=== PATIENT | male | born 1940 | race Caucasian/White ===

== ENCOUNTER → 2018-06-06 10:49 | Outpatient (CLI) | payer BC, SELFPAY ==
[2018-06-06 12:05] LABS: AST(SGOT) 23 U/L (15-37); Alanine Aminotransfer ALT/SGPT 22 U/L (16-61); Albumin, Serum 3.8 g/dL (3.2-5.0); Alkaline Phosphatase 56 U/L (45-117); Bilirubin, Direct 0.29 mg/dL (0.00-0.30); Cholesterol 190 mg/dL (200); High Density Lipoprotein 55 mg/dL; Protein, Total 6.8 g/dL (6.4-8.2); Triglycerides 100 mg/dL; Very Low Density Lipoprotein 20 mg/dL (5-40)
== END ==
PROVIDERS: Family Provider Family Medicine; PCP Family Medicine; Visit Provider Internal Medicine Cardiovascular Disease
DX: E78.5 Hyperlipidemia, unspecified (principal); Z79.899 Other long term (current) drug therapy
CPT/HCPCS: 36415; 80061; 80076

== ENCOUNTER → 2019-06-15 | Outpatient (CLI) | payer BC, SELFPAY ==
[2018-06-16 11:30] VITALS: BMI 30.1
[2019-06-15 09:56] LABS: AST(SGOT) 29 U/L (15-37); Alanine Aminotransfer ALT/SGPT 30 U/L (16-61); Albumin, Serum 3.5 g/dL (3.2-5.0); Alkaline Phosphatase 66 U/L (45-117); Bilirubin, Direct 0.24 mg/dL (0.00-0.30); Cholesterol 168 mg/dL (200); High Density Lipoprotein 50 mg/dL; Protein, Total 6.5 g/dL (6.4-8.2); Triglycerides 109 mg/dL; Very Low Density Lipoprotein 22 mg/dL (5-40)
== END | disposition home or self-care (01) ==
LOC: LAB 07:09
PROVIDERS: Family Provider Family Medicine; PCP Family Medicine; Referring Provider Internal Medicine Cardiovascular Disease; Visit Provider Internal Medicine Cardiovascular Disease
DX: I25.10 Atherosclerotic heart disease of native coronary artery without angina pectoris (principal); E78.5 Hyperlipidemia, unspecified
CPT/HCPCS: 36415; 80061; 80076

== ENCOUNTER → 2019-09-29 10:48 | Outpatient (CLI) | payer BC, SELFPAY ==
[2019-06-19 11:42] VITALS: BMI 30.5
--- NOTE | 2019-09-29 10:51 | ECHOCS_ITS ---
Reason For Study: MURMUR Procedure This was a 2D Doppler, Color Flow transthoracic echocardiogram. The study was technically difficult. Contrast injection was performed. Exam performed in department. Left Ventricle Normal LV size. Segmental dysfunction with preserved ejection fraction (see wall motion). The estimated ejection fraction is 55 %. Diastolic function is indeterminate. Infero-Basal: Hypokinetic. Basal inferoseptal: Hypokinetic. Mid-Inferior: Hypokinetic. Mid-inferoseptal : Hypokinetic. Mid- anteroseptal : Hypokinetic. Inferior [place] : Hypokinetic. Septal [place] : Hypokinetic. Right Ventricle Normal RV size. Normal systolic function. Atria Borderline enlarged left atrium. Normal right atrium. No doppler evidence for ASD. Mitral Valve There is no mitral annular calcification. Normal mitral valve. Trivial mitral valve insufficiency. Tricuspid Valve Normal tricuspid valve. Trivial tricuspid valve insufficiency. Unable to estimate RV systolic pressure/pulmonary artery pressure due to technically difficult study. Aortic Valve Trisinus/trileaflet aortic valve. Mild focal aortic valve calcification. Mild (1+) eccentric aortic valve insufficiency. Pulmonic Valve The pulmonic valve is not well visualized. Great Vessels Mildly dilated ascending aorta. Pericardium/Pleural No pericardial effusion. Medication 22 gauge I.V. with prn adaptor inserted into right arm. Diluted definity 3.0ml given slow IV push to enhance endocardial definition. MMode/2D Measurements & Calculations LVIDd: 5.2 cm IVSd: 0.97 cm Ao root diam: 4.3 cm LVIDs: 3.9 cm LVPWd: 1.1 cm RVDd: 3.4 cm FS: 24.0 % LAV(MOD-bp): 53.4 ml EDV(MOD-sp4): 186.3 ml EDV(MOD-sp2): 138.7 ml LAV(MOD-bp) Indexed: 25.1 ml/m2 ESV(MOD-sp4): 79.6 ml EF(MOD-sp2): 45.6 % LAV(MOD-sp2): 54.9 ml EF(MOD-sp4): 57.2 % LAV(MOD-sp4): 52.2 ml SV(MOD-sp4): 106.6 ml SV(MOD-sp2): 63.2 ml LA A4 area: 18.9 cm2 LA dimension(2D): 5.3 cm RA A4 area: 12.7 cm2 Time Measurements MV dec time: 0.32 sec Doppler Measurements & Calculations MV E max robin: 57.7 cm/sec Lat Peak E' Robin: 2.8 cm/sec Med Peak E' Robin: 3.7 cm/sec MV A max robin: 91.7 cm/sec E/E' lat: 20.3 E/E' med: 15.4 MV E/A: 0.63 Ao V2 max: 173.3 cm/sec AI max robin: 435.8 cm/sec LV V1 max: 103.3 cm/sec Ao max P.0 mmHg AI max P.1 mmHg LV V1 max P.3 mmHg AI dec slope: 247.8 cm/sec2 AI P1/2t: 515.0 msec PA V2 max: 87.0 cm/sec Interpretation Summary The study was technically difficult. Contrast injection was performed. Segmental dysfunction with preserved ejection fraction (see wall motion). The estimated ejection fraction is 55 %. Borderline enlarged left atrium. Trivial mitral valve insufficiency. Trivial tricuspid valve insufficiency. Mild focal aortic valve calcification. Mild (1+) eccentric aortic valve insufficiency. Mildly dilated ascending aorta. Unable to estimate RV systolic pressure/pulmonary artery pressure due to technically difficult study. Diastolic function is indeterminate. Ordering Physician: Wilber Vences Referring Physician: NOE LEON Performed By: Darline Celaya, CODY, RVT
== END ==
PROVIDERS: Family Provider Family Medicine; PCP Family Medicine; Referring Provider Internal Medicine Cardiovascular Disease; Visit Provider Internal Medicine Cardiovascular Disease
DX: I25.5 Ischemic cardiomyopathy (principal); I10 Essential (primary) hypertension; I35.1 Nonrheumatic aortic (valve) insufficiency; Z95.5 Presence of coronary angioplasty implant and graft; I25.10 Atherosclerotic heart disease of native coronary artery without angina pectoris; E78.5 Hyperlipidemia, unspecified
CPT/HCPCS: 93306; Q9957; C8929

== ENCOUNTER → 2019-10-12 16:24 | Outpatient (CLI) | payer BC, SELFPAY ==
[2019-06-19 11:42] VITALS: BMI 30.5
--- NOTE | 2019-10-12 16:26 | CT_ITS ---
STUDY: CT ANGIOGRAPHY CHEST WITH CONTRAST REASON FOR EXAM: Male, 79 years old. Ascending aortic dilation on echo, hypertension RADIATION DOSAGE (If Supplied By Facility): CTDIvol = ( 17.29 ) mGy, DLP = ( 627.78 ) mGycm TECHNIQUE: Transaxial angiographic phase imaging was performed following intravenous administration of IV Isovue 300 100mL. Individualized dose optimization techniques were used for this CT. COMPARISON: None. FINDINGS: Lungs are clear. Pleural surfaces are intact. Central airways are patent. Mediastinal contents are normal. Cardiac changes are normal in size and shape. There is extensive coronary artery disease. Ascending aorta measures 3.6 cm in maximal dimension. Transverse and descending have expected progressive decreasing diameter. 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 Origins of the great vessels are normal with vascular tortuosity.. Osseous structures are unremarkable. CT/Chest WITH Contrast IMPRESSION: 1. Ascending aorta 3.6 cm.. 2. Severe coronary artery disease. Electronically Signed: Arnel Dickens, at 17:30 EST Tel , Service support ,
[2019-10-12 16:41] LABS: CREATININE FINGERSTICK 0.9 mg/dL (0.70-1.30); EGFR FINGERSTICK > 60.0000 mL/min (>60)
== END ==
PROVIDERS: Family Provider Family Medicine; PCP Family Medicine; Referring Provider Internal Medicine Cardiovascular Disease; Visit Provider Internal Medicine Cardiovascular Disease
DX: I77.810 Thoracic aortic ectasia (principal); I25.10 Atherosclerotic heart disease of native coronary artery without angina pectoris; Z95.5 Presence of coronary angioplasty implant and graft
CPT/HCPCS: 71260; Q9967

== ENCOUNTER → 2020-03-28 07:26 | Outpatient (CLI) | payer BC, SELFPAY ==
[2019-12-17 08:11] VITALS: BMI 31.7
[2020-03-28 09:05] LABS: Anion Gap 4 (5-15); BUN 24 mg/dL (7-18); BUN/Creat Ratio 28.2 RATIO (10-20); Chloride 112 mmol/L (98-107); Creatinine, Serum 0.85 mg/dL (0.70-1.30); EST Glomerular Filtration Rate 92 mL/min (>60); Est Glom Filt Rate - Afr Amer 111 mL/min (>60); Glucose 84 mg/dL (74-106); Potassium 4.3 mmol/L (3.5-5.1); Sodium Level 144 mmol/L (136-145)
== END ==
PROVIDERS: PCP Student in an Organized Health Care Education/Training Program; Referring Provider Internal Medicine Cardiovascular Disease; Visit Provider Internal Medicine Cardiovascular Disease
DX: I77.810 Thoracic aortic ectasia (principal); I25.5 Ischemic cardiomyopathy; I10 Essential (primary) hypertension; I35.1 Nonrheumatic aortic (valve) insufficiency; Z95.5 Presence of coronary angioplasty implant and graft; I25.10 Atherosclerotic heart disease of native coronary artery without angina pectoris; E78.5 Hyperlipidemia, unspecified
CPT/HCPCS: 36415; 80048

== ENCOUNTER → 2020-08-15 07:57 | Outpatient (CLI) | payer BC, SELFPAY ==
[2020-08-01 15:50] VITALS: BMI 29.9
--- NOTE | 2020-08-15 07:58 | ECHOD_ITS ---
Reason For Study: CAD Procedure This was a 2D Doppler, Color Flow transthoracic echocardiogram. The exam was of adequate technical quality. This is a venous duplex using B-mode, color flow and spectral Doppler. Left Ventricle Normal LV size. Segmental dysfunction with preserved ejection fraction (see wall motion). The estimated ejection fraction is 55 %. Diastolic function is indeterminate. Infero-Basal: Hypokinetic. Mid-Inferior: Hypokinetic. Mid-inferoseptal : Hypokinetic. Mid-anteroseptal : Hypokinetic. Anterior [place] : Hypokinetic. Inferior [place] : Hypokinetic. Septal [place] : Hypokinetic. Right Ventricle Normal RV size. Normal systolic function. Atria Normal left atrium. Normal right atrium. No doppler evidence for ASD. Mitral Valve There is no mitral annular calcification. Normal mitral valve. Trivial mitral valve insufficiency. Tricuspid Valve Normal tricuspid valve. Trivial tricuspid valve insufficiency. Right ventricular systolic pressure estimated to be 24 mmHg. Aortic Valve Trisinus/trileaflet aortic valve. Moderate focal aortic valve calcification. Trivial eccentric aortic valve insufficiency. Pulmonic Valve The pulmonic valve is not well visualized. Trivial pulmonic valve insufficiency. Great Vessels Borderline enlarged aortic root. Pericardium/Pleural No pericardial effusion. MMode/2D Measurements & Calculations LVIDd: 4.9 cm IVSd: 1.1 cm Ao root diam: 3.9 cm LVIDs: 3.7 cm LVPWd: 1.3 cm RVDd: 2.8 cm FS: 25.3 % LAV(MOD-bp): 59.5 ml LVAd ap4: 34.6 cm2 SV(MOD-sp4): 57.3 ml LAV(MOD-bp) Indexed: 28.2 ml/m2 EDV(MOD-sp4): 117.7 ml LAV(MOD-sp2): 74.1 ml EDV(sp4-el): 120.2 ml LAV(MOD-sp4): 42.3 ml LVAs ap4: 22.6 cm2 ESV(MOD-sp4): 60.4 ml ESV(sp4-el): 60.4 ml EF(MOD-sp4): 48.7 % EF(sp4-el): 49.8 % SV(sp4-el): 59.8 ml LA A4 area: 16.9 cm2 LA dimension(2D): 3.8 cm RA A4 area: 14.5 cm2 Time Measurements MV dec time: 0.20 sec Doppler Measurements & Calculations MV E max robin: 65.7 cm/sec Lat Peak E' Robin: 7.4 cm/sec Med Peak E' Robin: 4.5 cm/sec MV A max robin: 92.5 cm/sec E/E' lat: 8.9 E/E' med: 14.7 MV E/A: 0.71 Ao V2 max: 157.1 cm/sec AI max robin: 363.7 cm/sec LV V1 max: 105.1 cm/sec Ao max P.9 mmHg AI max P.5 mmHg LV V1 max P.4 mmHg AI dec slope: 177.1 cm/sec2 AI P1/2t: 601.6 msec PA V2 max: 86.7 cm/sec TR max robin: 229.0 cm/sec TR max P.0 mmHg Interpretation Summary Segmental dysfunction with preserved ejection fraction (see wall motion). The estimated ejection fraction is 55 %. Trivial mitral valve insufficiency. Trivial tricuspid valve insufficiency. Moderate focal aortic valve calcification. Trivial eccentric aortic valve insufficiency. Trivial pulmonic valve insufficiency. Borderline enlarged aortic root. Right ventricular systolic pressure estimated to be 24 mmHg. Diastolic function is indeterminate. Ordering Physician: Wilber Vences Referring Physician: NOE LEON Performed By: Darline Celaya, CODY, RVT
== END ==
PROVIDERS: PCP Family Medicine; Referring Provider Internal Medicine Cardiovascular Disease; Visit Provider Internal Medicine Cardiovascular Disease
DX: I25.10 Atherosclerotic heart disease of native coronary artery without angina pectoris (principal); I25.5 Ischemic cardiomyopathy; Z95.5 Presence of coronary angioplasty implant and graft; E78.5 Hyperlipidemia, unspecified; I10 Essential (primary) hypertension; I77.810 Thoracic aortic ectasia
CPT/HCPCS: 93306

== ENCOUNTER → 2020-12-19 10:10 | Outpatient (CLI) | payer BC, SELFPAY ==
[2020-08-01 15:50] VITALS: BMI 29.9
[2020-12-19 11:15] LABS: Anion Gap 2 (5-15); BUN 22 mg/dL (7-18); BUN/Creat Ratio 19.6 RATIO (10-20); Chloride 106 mmol/L (98-107); Creatinine, Serum 1.12 mg/dL (0.70-1.30); EST Glomerular Filtration Rate 67 mL/min (>60); Est Glom Filt Rate - Afr Amer 81 mL/min (>60); Glucose 76 mg/dL (74-106); Potassium 4.6 mmol/L (3.5-5.1); Sodium Level 139 mmol/L (136-145)
== END ==
PROVIDERS: PCP Family Medicine; Referring Provider Internal Medicine Cardiovascular Disease; Visit Provider Internal Medicine Cardiovascular Disease
DX: I25.5 Ischemic cardiomyopathy (principal); R60.9 Edema, unspecified
CPT/HCPCS: 36415; 80048

== ENCOUNTER 2021-01-27 13:08 | Observation (INO) | payer BC, SELFPAY ==
[2020-08-01 15:50] VITALS: BMI 29.9
[2021-01-27] VITALS (10 sets, daily range): BP systolic 157–195; BP diastolic 74–98; PULSE 52–64; RESP 12–19; TEMP 35.9–36.7; O2SAT 96–99; BMI 29.7; BMI 29.0
--- NOTE | 2021-01-27 13:50 | EKG12_ITS ---
Test Reason : CP Blood Pressure : / mmHG Vent. Rate : 061 BPM Atrial Rate : 061 BPM P-R Int : 208 ms QRS Dur : 132 ms QT Int : 430 ms P-R-T Axes : 032 -59 -17 degrees QTc Int : 432 ms Normal sinus rhythm Left axis deviation Left ventricular hypertrophy with QRS widening Cannot rule out Septal infarct , age undetermined Abnormal ECG Confirmed by EMY REED, RONALD ([id number]), online editor PETR DANIELLE ([id number]) on 01/30/2021 10:34:35 A M Referred By: FEI Confirmed By:SEVERO QUEVEDO MD
--- NOTE | 2021-01-27 13:51 | ED.VIS.GEN ---
History of Present Illness Chief Complaint: Chest Pain Informant: Patient Onset: Today Context: Gradual Onset Timing: Continuous Current Severity: Moderate Maximum Severity: Moderate Narrative: The patient is an 80-year-old female with medical history significant for prior OH with 2 stents in 2014 who presents to the emergency department chest tightness. Patient states that his symptoms when he had his OH were sour taste in his stomach and fatigue. He states he woke this morning with a similar symptoms. He states he is also had pain in his upper shoulders, but states he had a mechanical fall few days ago and thinks it may be related to that. He denies any nausea or vomiting. He denies increasing shortness of breath. He states he has had some increase in his lower extremity swelling. Is been compliant with his medications. He is not on anticoagulants. Prior similar symptoms: Yes Recent Illness/Hospitalization: No Past Medical History - Allergies and Home Meds Allergies/Adverse Reactions: Allergies hydromorphone [From Dilaudid] Adverse Reaction (Verified 01/27/21 13:11) when used with morphine morphine Adverse Reaction (Verified 01/27/21 13:11) when used with dilaudid caused shallow respirations Primary Care Physician: Juan Dupont DO [Primary Care Provider] - Prior records reviewed: Yes Past Medical History: - - Coronary vascular disease, CHF, hypertension, hyperlipidemia Surgical History: noncontributory Smoking Status: Never smoker Review of Systems General: Denies: Chills, Fever, Sweats Eyes: Denies: Visual changes - bilaterally, Diplopia ENT: Denies: Rhinorrhea, Sore throat Cardiovascular: Reports: Chest pain. Denies: Palpitations Respiratory: Denies: Dyspnea, Cough, Dyspnea on exertion Gastrointestinal: Denies: Abdominal pain, Nausea, Vomiting, Diarrhea, Melena, Hematochezia Genitourinary: Denies: Dysuria, Hematuria, Frequency Musculoskeletal: Denies: Back pain, Extremity Pain Skin: Denies: Rash, Wounds Neurological: Denies: Headache, Weakness, Numbness Physical Exam Vital Signs/Narrative: Vital Signs Temp Pulse Resp BP Pulse Ox 01/27/21 13:10 96.7 F L 64 15 195/98 H 98 Inital Vital Signs reviewed: Yes General: Well nourished, Well developed, No Acute Distress Head: Normocephalic, Atraumatic Eyes: Perrl, EOMI ENT: Moist mucous membranes, No rhinorrhea Neck: Supple, Nontender Cardiovascular: Regular rate, Regular rhythm, No murmurs Respiratory: No distress, CTA bilaterally, Chest nontender Abdomen: Soft, Nontender, Nondistended, Normal bowel sounds Back: Nontender, Normal Inspection Extremities: Nontender, No edema Skin: Normal color, No rash Neurological: Alert, Oriented x3, Cranial nerves II-XII grossly intact, Normal Strength, Normal Sensation Psychological: Normal affect, Normal Mood Diagnostic/Tx/Re-eval Clinical Impression(s) from Imaging Studies Chest X-Ray 01/27/21 14:00 IMPRESSION: No active disease. Electronically Signed: Brendan Marcial MD at 14:17 EDT Tel , Service support , Abnormal Lab Results 01/27/21 01/27/21 13:30 13:30 WBC 6.2 RBC 4.82 Hgb 15.0 Hct 46.2 MCV 95.9 H MCH 31.1 MCHC 32.5 RDW Std Deviation 47.9 H RDW Coeff of Michael 13.3 Plt Count 226 MPV 10.5 Immature Gran % (Auto) 0.300 Neut % (Auto) 67.3 Lymph % (Auto) 22.1 [place] % (Auto) 7.5 Eos % (Auto) 2.3 Baso % (Auto) 0.5 Absolute Neuts (auto) 4.2 Absolute Lymphs (auto) 1.36 Nucleated RBC % 0 Sodium 142 Potassium 3.9 Chloride 105 Carbon Dioxide 34.0 H Anion Gap 3 L BUN 16 Creatinine 0.84 Estim Creat Clear Calc 72.42 Est GFR (MDRD) Af Amer 113 Est GFR (MDRD) Non-Af 93 BUN/Creatinine Ratio 19.0 Glucose 94 Calcium 9.0 Magnesium 2.1 Troponin I < 0.015 - Rhythm Strip Rhythm Strip: Sinus Rhythm Ectopy: None - EKG Initial EKG Interpretation: Sinus Rhythm, No Acute Injury Pattern, Non-Specific ST Changes Prior: Unchanged - Medical Decision Making Patient presents with what he describes a sour stomach. He is also had mild shortness of breath and upper back pain. He states he had the same symptoms that he had when he had his prior OH. Patient underwent metabolic work-up. EKG was obtained. Was sinus rhythm without evidence of acute ischemia. Was unchanged from prior. Cardiac enzymes were negative. Chest x-ray reviewed by both myself and the radiologist shows mild cardiomegaly, but no infiltrative process. There is no large effusion. At this point, I do for the patient is going to benefit from observation for cardiac rule out. Patient was discussed with the hospitalist. Impression 1. Chest pain with history of coronary vascular disease ED Disposition - Plan for ED Patient: Referrals: Juan Dupont DO [Primary Care Provider] -
[2021-01-27] MEDS: Aspirin 81 MG TAB.CHEW 324 MG PO (13:59)
--- NOTE | 2021-01-27 14:00 | RAD_ITS ---
STUDY: X-RAY CHEST REASON FOR EXAM: Male, 80 years old. chest pain TECHNIQUE: Single AP portable view of the chest. COMPARISON: 07/10/2015 FINDINGS: The lungs are clear and expanded. There is no demonstrated pleural abnormality. Normal size heart. Normal mediastinum and peace. Normal visualized pulmonary arteries. There is atherosclerotic tortuosity of the aortic arch and descending thoracic aorta. Normal visualized thoracic spine. Normal visualized ribs, clavicles, and shoulders. There is no demonstrated abnormality of the visualized soft tissue structures of the upper abdomen. RAD/Chest 1 View (Portable) IMPRESSION: No active disease. Electronically Signed: Brendan Marcial MD at 14:17 EDT Tel , Service support ,
[2021-01-27 14:01] LABS: Absolute Lymphocyte Count 1.36 X10^3/uL (0.83-4.51); Absolute Neutrophil Count 4.2 X10^3/uL (2.0-7.7); Basophil# 0.03 X10^3/uL; Basophil% 0.5 % (0-1); Eosinophil# 0.14 X10^3/uL; Eosinophils% 2.3 % (0-5); Hematocrit 46.2 % (40-54); Lymphocyte # 1.36 X10^3/ul (4.0); Lymphocyte % 22.1 % (19-41); Mean Corp Hgb Conc 32.5 g/dL (32-36); Mean Corpuscular Hgb 31.1 pg (27.0-32.0); Mean Corpuscular Volume 95.9 fL (80-94); Mean Platelet Vol. 10.5 fl (6.2-12.0); Monocyte# 0.46 X10^3/uL; Monocyte% 7.5 % (0-10); NRBC Flagged by Analyzer 0 % (0-5); Neutrophil # 4.15 X10^3/uL (2.7-7.7); Neutrophil % 67.3 % (47-70); Platelet Count 226 K/mm3 (150-450); RBC Distribution Width CV 13.3 % (11.6-14.6); RBC Distribution Width SD 47.9 fl (35.1-43.9); Red Blood Count 4.82 M/mm3 (4.6-6.2); White Blood Count 6.2 K/mm3 (4.4-11.0)
[2021-01-27 14:16] LABS: Anion Gap 3 (5-15); BUN 16 mg/dL (7-18); Chloride 105 mmol/L (98-107); Creatinine, Serum 0.84 mg/dL (0.70-1.30); EST Glomerular Filtration Rate 93 mL/min (>60); Est Glom Filt Rate - Afr Amer 113 mL/min (>60); Estimated Creatinine Clearance 72.42 ml/min; Glucose 94 mg/dL (74-106); Magnesium 2.1 mg/dL (1.6-2.6); Potassium 3.9 mmol/L (3.5-5.1); Sodium Level 142 mmol/L (136-145)
[2021-01-27 14:29] LABS: BNP,B-Type NATRIURETIC PEPTIDE 38.6 pg/mL (0-100)
--- NOTE | 2021-01-27 14:49 | PCM.HP.STD ---
Problem List (1) Ascending aorta dilatation Status: Chronic (2) Ischemic cardiomyopathy Status: Chronic (3) Essential hypertension Status: Chronic (4) Presence of stent in coronary artery Status: Chronic Comment: PTCA/FABRICIO to mid left CX and LAD 07/2015 (5) Atherosclerotic heart disease of [place] coronary artery without angina pectoris Status: Chronic Qualifiers: [place] vs. transplanted heart: [place] heart Qualified Code(s): I25.10 - Atherosclerotic heart disease of [place] coronary artery without angina pectoris Comment: PTCA/FABRICIO to mid left CX and LAD 07/2015 (6) Hyperlipidemia Status: Chronic Qualifiers: Hyperlipidemia type: unspecified Qualified Code(s): E78.5 - Hyperlipidemia, unspecified (7) Chest pain Status: Acute Qualifiers: Chest pain type: unspecified Qualified Code(s): R07.9 - Chest pain, unspecified History of Present Illness Date of Admission: 01/27/21 Chief Complaint: Chest/epigastric discomfort - 1 day. Dizziness, leg swelling - 1 week The patient is a 80 year old M with past medical history of CAD status post stents, hypertension, ascending aortic dilatation comes in with complaints of substernal/epigastric discomfort that started on the day of admission. Patient had breakfast that consisted of coffee, fruits, some eggs. He subsequently had what he describes as a sour abdomen. This felt very much like when he had his IA in 2014. Over the past 1 week, he has been feeling lightheaded, and has noticed lower extremity edema. He denied any orthopnea or PND but admits to weight gain. Denied any sick contacts, no fevers, no chills. He is on Lasix as needed. Vitals in the ED showed temperature of 96.7F, heart rate 64, blood pressure 195/98, respiratory 15, SPO2 is 90% on room air. Admitting blood work is unremarkable. Troponins are negative. Magnesium 2.1. BNPep is 38.6. Admitting chest x-ray shows no acute disease. Past Medical History Past Medical History (Chronic Problems): Chronic Problems (Last Reviewed 08/01/20 @ 15:53 by Cyndi Carlos) Ascending aorta dilatation (Chronic) Ischemic cardiomyopathy (Chronic) Essential hypertension (Chronic) Presence of stent in coronary artery (Chronic ~07/2015) PTCA/FABRICIO to mid left CX and LAD 07/2015 Atherosclerotic heart disease of [place] coronary artery without angina pectoris (Chronic) PTCA/FABRICIO to mid left CX and LAD 07/2015 Hyperlipidemia (Chronic) Medical History: Medical History (Last Reviewed 08/01/20 @ 15:53 by Cyndi Carlos) Ascending aorta dilatation (Chronic) I77.810 Ischemic cardiomyopathy (Chronic) I25.5 Essential hypertension (Chronic) I10 Nonrheumatic aortic (valve) insufficiency (Acute) I35.1 Presence of stent in coronary artery (Chronic) Onset Date: ~07/2015 Z95.5 PTCA/FABRICIO to mid left CX and LAD 07/2015 Atherosclerotic heart disease of [place] coronary artery without angina pectoris (Chronic) I25.10 PTCA/FABRICIO to mid left CX and LAD 07/2015 Hyperlipidemia (Chronic) E78.5 History of non-ST elevation myocardial infarction (NSTEMI) I25.2 Thrombocytopenia D69.6 BPH (benign prostatic hyperplasia) N40.0 Allergies hydromorphone [From Dilaudid] Adverse Reaction (Verified 01/27/21 13:11) when used with morphine morphine Adverse Reaction (Verified 01/27/21 13:11) when used with dilaudid caused shallow respirations Home Medications: Ambulatory Orders Medication Instructions Recorded Aspirin E.C. [Ecotrin] 81 mg PO DAILY@0800 05/06/17 Tamsulosin HCl [Flomax] 1 tab PO DAILY 05/06/17 [id number] palm-min 17 1 cap PO DAILY cap 06/12/18 capsule cranberry extract 500 mg tablet 500 mg PO DAILY 06/19/19 turmeric root extract 500 mg 1,500 mg PO DAILY cap 06/19/19 capsule nitroglycerin 0.4 mg sublingual 0.4 mg SUBLINGUAL Q5-15M PRN #25 10/13/20 tablet tab furosemide 40 mg tablet 40 mg PO DAILY PRN #90 tab 12/13/20 Garlic 1,000 mg PO DAILY 01/27/21 Lisinopril [Zestril] 20 mg PO DAILY 01/27/21 Potassium Chloride [K-Tab ER] 20 meq PO DAILY PRN 01/27/21 Ubidecarenone [Coq-10] 100 mg PO DAILY 01/27/21 Surgical History: Surgical History (Last Reviewed 08/01/20 @ 15:53 by Cyndi Carlos) History of rotator cuff surgery Z98.890 Right History of tonsillectomy and adenoidectomy Z98.890 History of umbilical hernia repair Z98.890, Z87.19 Presence of coronary angioplasty implant and graft Onset Date: ~07/2015 Z95.5 PTCA/FABRICIO to mid left CX and LAD 07/2015 Surgical History: adenoidectomy, herniorrhaphy - Bilateral hernia, rotator cuff repair - Right, tonsillectomy, - - CAD status post stents Psychiatric History: No pertinent psych hx Lives: Spouse/ Significant Other Smoking Status: Never smoker Tobacco Use: Non-smoker Alcohol: None Drugs: None - *Family History Maternal Family History: Family History (Last Reviewed 08/01/20 @ 15:53 by Cyndi Carlos) Father CAD (coronary artery disease) Myocardial infarction, Onset Age: 57 CHF (congestive heart failure) Brother CAD (coronary artery disease) Myocardial infarction History Items: Unknown Paternal Family History: Family History (Last Reviewed 08/01/20 @ 15:53 by Cyndi Carlos) Father CAD (coronary artery disease) Myocardial infarction, Onset Age: 57 CHF (congestive heart failure) Brother CAD (coronary artery disease) Myocardial infarction History Items: Heart Disease, Hypertension Review of Systems Constitutional: Denies: Anorexia, Chills, Fever, Malaise, Weakness, Weight Change Eyes: Denies: Blurred vision, Cataracts, Pain, Redness HEENT: Denies: Difficulty Hearing, Difficulty Swallowing, Head Aches, Hearing Changes, Sinus Congestion, Sinus Drainage Cardiovascular: Reports: Chest Pain, Light Headedness. Denies: Chest Pressure, Chest Tightness, Orthopnea, Palpitations, Paroxysmal Noc. Dyspnea, Syncope Respiratory: Denies: Cough, Hemoptysis, Shortness of breath at rest, Shortness of breath upon exertion, Sputum production Gastrointestinal: Denies: Abdominal Pain, Constipation, Hematemesis, Hematochezia, Nausea, Vomiting Genitourinary: Denies: Dysuria Musculoskeletal: Denies: Joint Pain, Joint Tenderness Skin: Denies: Rash, Wounds Neurological: Denies: Difficulty swallowing, Focal weakness, Numbness, Tingling Psychiatric: Denies: Anxiety, Depression, Homicidal Ideations, Suicidal Ideations Hematologic/ Lymphatic: Denies: Easy Bruising, Easy Bleeding VTE Information - Inpt Only VTE Present on Admission: No VTE Pharm Prophylaxis ordered?: Yes Patient Problems: Active and Suspected Problems (Last Reviewed 08/01/20 @ 15:53 by Cyndi Carlos) Chest pain (Acute) - Physical Exam Vitals/I&O's: Vital Signs Temp Pulse Resp BP Pulse Ox 96.7 F L 61 12 163/74 H 97 01/27/21 13:10 01/27/21 13:54 01/27/21 13:54 01/27/21 13:54 01/27/21 13:54 Oxygen Delivery Method Room Air Weight: 94 kg Body Mass Index (BMI) 29.7 General: Alert, Oriented x3, Cooperative, No apparent distress HEENT: Atraumatic, PERRLA, EOMI, Normocephalic Oral: Moist Mucosa Neck: Supple Lungs: Clear to auscultation, Normal air movement Cardiovascular: Regular rate, Regular Rhythm, Normal S1, Normal S2, No murmurs Abdomen: Bowel Sounds Present, Soft, Non Tender, Non-Distended, No Hepato-splenomegaly Extremities: Edema - bilateral pedal edema +1 Skin: No rashes Musculoskeletal: No Tenderness to Palpation of Joints or Extremities Lymphatic: No Cervical, Supraclavicular, or Inguinal Adenopathy Neurological: Cranial nerves II-XII grossly intact, Neuro grossly intact Psych/Mental Status: Normal Affect, Appropriate Laboratory Results 01/27/21 13:30: WBC 6.2, RBC 4.82, Hgb 15.0, Hct 46.2, MCV 95.9 H, MCH 31.1, MCHC 32.5, RDW Std Deviation 47.9 H, RDW Coeff of Michael 13.3, Plt Count 226, MPV 10.5, Immature Gran % (Auto) 0.300, Neut % (Auto) 67.3, Lymph % (Auto) 22.1, [place] % (Auto) 7.5, Eos % (Auto) 2.3, Baso % (Auto) 0.5, Absolute Neuts (auto) 4.2, Absolute Lymphs (auto) 1.36, Nucleated RBC % 0 01/27/21 13:30: Sodium 142, Potassium 3.9, Chloride 105, Carbon Dioxide 34.0 H, Anion Gap 3 L, BUN 16, Creatinine 0.84, Estim Creat Clear Calc 72.42, Est GFR (MDRD) Af Amer 113, Est GFR (MDRD) Non-Af 93, BUN/Creatinine Ratio 19.0, Glucose 94, Calcium 9.0, Magnesium 2.1, Troponin I < 0.015 01/27/21 13:30: B-Natriuretic Peptide 38.6 Assessment/Plan All Active Problems (Last Reviewed 08/01/20 @ 15:53 by Cyndi Carlos) Chest pain (Acute) Nonrheumatic aortic (valve) insufficiency (Acute) 1. Chest pain, atypical, in a patient with CAD status post stents Admitting EKG shows no acute ST-T changes, troponins are negative Will trend troponins, stress test in a.m. 2. Hypertension, uncontrolled, continue on lisinopril Hydralazine as needed 3. Chronic systolic CHF, EF 55%, continue on Lasix daily CHF protocol with daily weights, strict I's and O's 4. Ascending aortic dilatation, stable 5. DVT prophylaxis with heparin subcu 6. CODE STATUS?DNR CCA, no intubation I discussed and explained in details the various types of CODE STATUS-full code, DNR CCA, DNR CC. Patient chose DNR-CCA, nop intubation Time spent discussing CODE STATUS 17 minutes OBSV E&M: 57247 Initial observation care L3 Procedures: 98130 Advncd Care Plan 30 Min
--- NOTE | 2021-01-27 16:05 | EKG12_ITS ---
Test Reason : AM EKG Blood Pressure : / mmHG Vent. Rate : 056 BPM Atrial Rate : 056 BPM P-R Int : 230 ms QRS Dur : 136 ms QT Int : 442 ms P-R-T Axes : 017 -51 -25 degrees QTc Int : 426 ms Sinus bradycardia with 1st degree A-V block Left axis deviation Left ventricular hypertrophy with QRS widening Nonspecific T wave abnormality Abnormal ECG When compared with ECG of 27-JAN-2021 15:40, MANUAL COMPARISON REQUIRED, DATA IS UNCONFIRMED Confirmed by GEORGES REED, GAYATHRI ([id number]), forensic social worker PETR DANIELLE ([id number]) on 01/31/2021 9:11:08 AM Referred By: RONNY Confirmed By:GAYATHRI SU MD
[2021-01-27] MEDS: Furosemide 40 MG Tablet PO (19:01)
[2021-01-27] MEDS: Lisinopril 20 MG Tablet PO (20:49)
[2021-01-27] MEDS: Heparin Injection (Vial) 5,000 UNIT/ML VIAL 5000 UNIT SC (22:46)
[2021-01-28 02:50] VITALS: BP 166/86; PULSE 56; RESP 14; TEMP 36.4; O2SAT 96
[2021-01-28 03:00] VITALS: PULSE 59
--- NOTE | 2021-01-28 05:55 | EKG12_ITS ---
Test Reason : Blood Pressure : / mmHG Vent. Rate : 053 BPM Atrial Rate : 053 BPM P-R Int : 218 ms QRS Dur : 134 ms QT Int : 436 ms P-R-T Axes : 023 -57 -21 degrees QTc Int : 409 ms Sinus bradycardia with 1st degree A-V block Left axis deviation Left ventricular hypertrophy with QRS widening Abnormal ECG When compared with ECG of 06-MAY-2017 20:47, TX interval has increased Confirmed by GEORGES REED, GAYATHRI ([id number]), commercial production editor PETR DANIELLE ([id number]) on 01/31/2021 9:12:02 AM Referred By: RONNY Confirmed By:GAYATHRI SU MD
[2021-01-28 06:33] VITALS: BP 142/82
[2021-01-28] MEDS: Lisinopril 20 MG Tablet PO (06:39)
[2021-01-28 07:00] VITALS: PULSE 55
[2021-01-28 07:23] LABS: Absolute Lymphocyte Count 1.24 X10^3/uL (0.83-4.51); Absolute Neutrophil Count 4.1 X10^3/uL (2.0-7.7); Basophil# 0.02 X10^3/uL; Basophil% 0.3 % (0-1); Eosinophil# 0.18 X10^3/uL; Eosinophils% 2.9 % (0-5); Hematocrit 44.8 % (40-54); Hemoglobin 14.6 g/dL (13.0-16.5); Lymphocyte # 1.24 X10^3/ul (4.0); Lymphocyte % 20.3 % (19-41); Mean Corp Hgb Conc 32.6 g/dL (32-36); Mean Corpuscular Hgb 31.5 pg (27.0-32.0); Mean Corpuscular Volume 96.8 fL (80-94); Mean Platelet Vol. 10.3 fl (6.2-12.0); Monocyte# 0.57 X10^3/uL; Monocyte% 9.3 % (0-10); NRBC Flagged by Analyzer 0 % (0-5); Neutrophil # 4.09 X10^3/uL (2.7-7.7); Neutrophil % 66.9 % (47-70); Platelet Count 214 K/mm3 (150-450); RBC Distribution Width CV 13.5 % (11.6-14.6); RBC Distribution Width SD 48.6 fl (35.1-43.9); Red Blood Count 4.63 M/mm3 (4.6-6.2); White Blood Count 6.1 K/mm3 (4.4-11.0)
[2021-01-28 07:56] VITALS: BP 154/66; PULSE 53; RESP 16; TEMP 36.4; O2SAT 95
[2021-01-28 08:05] LABS: ALB/GLOB Ratio 1.1 RATIO (0.9-2.4); AST(SGOT) 20 U/L (15-37); Alanine Aminotransfer ALT/SGPT 23 U/L (16-61); Albumin, Serum 3.3 g/dL (3.2-5.0); Alkaline Phosphatase 70 U/L (45-117); Anion Gap 4 (5-15); BUN 15 mg/dL (7-18); BUN/Creat Ratio 19.6 RATIO (10-20); Calcium,Total 8.8 mg/dL (8.5-10.1); Chloride 105 mmol/L (98-107); Creatinine, Serum 0.76 mg/dL (0.70-1.30); EST Glomerular Filtration Rate 104 mL/min (>60); Est Glom Filt Rate - Afr Amer 126 mL/min (>60); Estimated Creatinine Clearance 60.83 ml/min; Glucose 84 mg/dL (74-106); Potassium 3.7 mmol/L (3.5-5.1); Protein, Total 6.3 g/dL (6.4-8.2); Sodium Level 140 mmol/L (136-145)
--- NOTE | 2021-01-28 11:04 | STRESSREP ---
Stress Test Report Pharmacologic myocardial perfusion stress test. Indication: Patient is a 80-year-old with history of CAD, s/p stent to the LAD and the left circumflex/drug-eluting stent in 2015. Presented with complaint of her substernal/epigastric discomfort. Other medical problem include history of hypertension, hyperlipidemia. Evaluation with cardiopulmonary course high sensitive troponins are negative and BNP level has been within normal. As well as a electrolytes. Based on his clinical presentation and history of CAD with prior PCI and stent to the LAD and the left circumflex in 2015 further evaluation with Lexiscan sestamibi myocardial perfusion study. Stress protocol: Resting EKG demonstrates. Normal sinus rhythm. 0.4 mg of regadenoson was infused per usual protocol followed by rapid intravenous saline flush injection continuous EKG monitoring was performed. The maximum heart rate attained was 101 bpm which was 72% of maximum predicted heart . Stress EKG showed[, normal sinus rhythm, no significant change from the resting EKG, with maximum heart rate of 101bpm. Arrhythmia: No arrhythmia demonstrated Symptoms: Patient had no symptoms of chest pain Blood pressure at rest:182/80 mmhg blood pressure at the end of stress: 180/82 mmhg Myocardial perfusion protocol. 14 mci of Technetium 99m Sestamibi was injected at rest. 0,4mg of Regadenoson was infused per usual protocol peak [id number],0 mci of Technetium 99m sestamibi was injected. Stress images were obtained stress and rest images were reconstructed and compared in the short axis vertical and horizontal long axis. Gated images were also obtained Perfusion SPECT analysis: Review of the images demonstrate normal uptake of sestamibi at rest, post stress images demonstrate similar uptake of sestamibi to the resting images, homogeneous tracer uptake With no evidence of reversible myocardial ischemia. Gated SPECT analysis: The gated ejection fraction is 56%. Normal wall motion with no evidence of segmental wall motion abnormality noted. Conclusion: Negative Lexiscan sestamibi myocardial perfusion study for reversible myocardial ischemia Preserved LV systolic function, with normal ejection fraction. Alysha Smalls MD,FACC,[facility] phlebotomy director
--- NOTE | 2021-01-28 11:18 | DCINST_ITS ---
- Discharge Diagnoses Current Active Problems: Current Active and Chronic Problems (Last Reviewed 08/01/20 @ 15:53 by Cyndi Carlos) Chest pain (Acute) Ascending aorta dilatation (Chronic) Ischemic cardiomyopathy (Chronic) Essential hypertension (Chronic) Presence of stent in coronary artery (Chronic ~07/2015) PTCA/FABRICIO to mid left CX and LAD 07/2015 Atherosclerotic heart disease of [place] coronary artery without angina pectoris (Chronic) PTCA/FABRICIO to mid left CX and LAD 07/2015 Hyperlipidemia (Chronic) You will use the following diet at home:: No restrictions Your food should be the consistency of: Regular Your liquids should be the consistency of: Regular/Thin Discharge Activity: Return to Normal Activity Allergies/Adverse Reactions: Allergies hydromorphone [From Dilaudid] Adverse Reaction (Verified 01/27/21 13:11) when used with morphine morphine Adverse Reaction (Verified 01/27/21 13:11) when used with dilaudid caused shallow respirations Medications to take at Discharge Aspirin E.C. [Ecotrin] 81 mg PO DAILY@0800 05/06/17 Tamsulosin HCl [Flomax] 1 tab PO DAILY 05/06/17 tpohiu-tdrpnax-pir palm-min 17 capsule 1 cap PO DAILY cap 06/12/18 cranberry extract 500 mg tablet 500 mg PO DAILY 06/19/19 turmeric root extract 500 mg capsule 1,500 mg PO DAILY cap 06/19/19 nitroglycerin 0.4 mg sublingual tablet 0.4 mg SUBLINGUAL Q5-15M PRN #25 tab 10/13/20 furosemide 40 mg tablet 40 mg PO DAILY PRN #90 tab 12/13/20 Garlic 1,000 mg PO DAILY 01/27/21 Lisinopril [Zestril] 20 mg PO DAILY 01/27/21 Potassium Chloride [K-Tab ER] 20 meq PO DAILY PRN 01/27/21 Ubidecarenone [Coq-10] 100 mg PO DAILY 01/27/21 Primary Care Physician: Juan Dupont DO [COURTESY STAFF PHYSICIAN] - Please follow up with your Primary Care Physician in: Within the next 2 weeks Test Results: Test results from this visit will be discussed in further detail at your follow- up appointment, if applicable. Please Follow Up With: Wilber Vences MD When: Proceed to your appointment this week Proposed Discharge Date: 01/28/21 - Discharge pending results from cardiac stress test
--- NOTE | 2021-01-28 12:40 | NURSING ---
pt stated he wanted to take his normal morning meds at home.
--- NOTE | 2021-01-28 13:09 | DS.PCM_ITS ---
<Ronny Barber - Last Filed: 01/28/21 13:09> Discharge Date and Diagnosis - Problem List Patient Problems: Active and Suspected Problems (Last Reviewed 08/01/20 @ 15:53 by Cyndi Carlos) Chest pain (Acute) Date of Admission: 01/27/21 Date of Discharge: 01/28/21 - Primary Discharge Diagnosis Acute Problems: Active Problems (Last Reviewed 08/01/20 @ 15:53 by Cyndi Carlos) Chest pain (Acute) - Secondary Discharge Diagnosis Chronic Problems: Chronic Problems (Last Reviewed 08/01/20 @ 15:53 by Cyndi Carlos) Ascending aorta dilatation (Chronic) Ischemic cardiomyopathy (Chronic) Essential hypertension (Chronic) Presence of stent in coronary artery (Chronic ~07/2015) PTCA/FABRICIO to mid left CX and LAD 07/2015 Atherosclerotic heart disease of [place] coronary artery without angina pectoris (Chronic) PTCA/FABRICIO to mid left CX and LAD 07/2015 Hyperlipidemia (Chronic) Hospital Course and Treatment Imaging Results: 01/28/21 05:55 Nuclear Stress Test - Chemical [NM] AM (NON MEDS) Procedures: Stress test Summary of Care Provided: This patient is an 80-year-old male who was presented to the emergency department on 01/27/2021 with a chief complaint of substernal/extragastric discomfort. Patient says his symptoms felt very much like when he had his most recent UT in 2014. Patient claims that his symptoms started over the past week with feeling lightheaded, gaining weight and lower extremity edema. Patient was admitted for unspecified chest pain/ACS rule out. Chest x-ray on admission showed no acute disease. Troponins were negative throughout cycle. BNP not elevated. Blood work and the rest of CMP were unremarkable. Stress test this morning revealed no evidence of myocardial ischemia, preserved left ventricular systolic function with normal ejection fraction. Patient will be discharged today and encouraged to follow-up with primary care and data management manager. 1) Unspecified chest pain/ ACS rule out Assessment - EKG normal sinus without evidence of ischemia - Troponins negative - BNP not elevated - Stress test negative Plan - Resume home aspirin regimen - Attend previously scheduled appointment this week with Dr. Vences of the [facility] 2) Hypertension - chronic Assessment - Blood pressure elevated throughout admission Plan - Lisinopril increased to 40 mg daily 3) ascending aortic dilatation - chronic Assessment - Observed on chest x-ray - Stable Plan - Continue outpatient management with [facility] DVT Prophylaxis - SC Heparin Patient seen by Ronny Barber PA-C, under the supervision of Dr. Hernandez Patient Problems: Active and Suspected Problems (Last Reviewed 08/01/20 @ 15:53 by Cyndi Carlos) Chest pain (Acute) Subjective: Patient is an 80-year-old male is resting comfortably in bed, alert and oriented x3. Patient has just returned from stress test when I examined him, patient is in good spirit although admits he is hungry. Denies chest pain, palpitations, abdominal pain, shortness of breath, productive cough. Objective: Clinical Impression(s) from Imaging Studies Chest X-Ray 01/27/21 14:00 IMPRESSION: No active disease. Electronically Signed: Brendan Marcial MD at 14:17 EDT Tel , Service support , - Physical Exam Vitals/I&O's: Vital Signs Temp Pulse Resp BP Pulse Ox 97.6 F L 53 L 16 154/66 H 95 01/28/21 07:56 01/28/21 07:56 01/28/21 07:56 01/28/21 07:56 01/28/21 07:56 Oxygen Delivery Method Room Air Weight: 202 lb Body Mass Index (BMI) 29.0 Intake and Output for Last 24 Hours 01/26/21 01/27/21 01/28/21 23:59 23:59 23:59 Intake Total 200 / 200 Output Total 1275 / 1275 1200 / 1200 Balance -1075 / -1075 -1200 / -1200 General: Alert, Oriented x3, Cooperative HEENT: Atraumatic, PERRLA, EOMI, Normocephalic Neck: Supple, No JVD, Negative Carotid Bruits Lungs: Clear to auscultation, Normal air movement Cardiovascular: Regular rate, No murmurs Abdomen: Bowel Sounds Present, Soft, Non Tender Extremities: No edema, Capillary Refill Less than 3 Seconds Skin: No rashes, No breakdown Musculoskeletal: No Tenderness to Palpation of Joints or Extremities Neurological: Cranial nerves II-XII grossly intact Psych/Mental Status: Normal Affect, Appropriate Laboratory Results 01/27/21 13:30: WBC 6.2, RBC 4.82, Hgb 15.0, Hct 46.2, MCV 95.9 H, MCH 31.1, MCHC 32.5, RDW Std Deviation 47.9 H, RDW Coeff of Michael 13.3, Plt Count 226, MPV 10.5, Immature Gran % (Auto) 0.300, Neut % (Auto) 67.3, Lymph % (Auto) 22.1, [place] % (Auto) 7.5, Eos % (Auto) 2.3, Baso % (Auto) 0.5, Absolute Neuts (auto) 4.2, Absolute Lymphs (auto) 1.36, Nucleated RBC % 0 01/27/21 13:30: Sodium 142, Potassium 3.9, Chloride 105, Carbon Dioxide 34.0 H, Anion Gap 3 L, BUN 16, Creatinine 0.84, Estim Creat Clear Calc 72.42, Est GFR (MDRD) Af Amer 113, Est GFR (MDRD) Non-Af 93, BUN/Creatinine Ratio 19.0, Glucose 94, Calcium 9.0, Magnesium 2.1, Troponin I < 0.015 01/27/21 13:30: B-Natriuretic Peptide 38.6 01/27/21 16:30: Troponin I < 0.015 01/27/21 19:32: Troponin I < 0.015 01/28/21 06:55: WBC 6.1, RBC 4.63, Hgb 14.6, Hct 44.8, MCV 96.8 H, MCH 31.5, MCHC 32.6, RDW Std Deviation 48.6 H, RDW Coeff of Michael 13.5, Plt Count 214, MPV 10.3, Immature Gran % (Auto) 0.300, Neut % (Auto) 66.9, Lymph % (Auto) 20.3, [place] % (Auto) 9.3, Eos % (Auto) 2.9, Baso % (Auto) 0.3, Absolute Neuts (auto) 4.1, Absolute Lymphs (auto) 1.24, Nucleated RBC % 0 01/28/21 06:55: Sodium 140, Potassium 3.7, Chloride 105, Carbon Dioxide 31.0, Anion Gap 4 L, BUN 15, Creatinine 0.76, Estim Creat Clear Calc 60.83, Est GFR (MDRD) Af Amer 126, Est GFR (MDRD) Non-Af 104, BUN/Creatinine Ratio 19.6, Glucose 84, Calcium 8.8, Total Bilirubin 1.40 H, AST 20, ALT 23, Alkaline Phosphatase 70, Total Protein 6.3 L, Albumin 3.3, Globulin 3.0, Albumin/Globulin Ratio 1.1 Discharge Activity: Return to Normal Activity Home Medications: Medications to take at Discharge Aspirin E.C. [Ecotrin] 81 mg PO DAILY@0800 05/06/17 Tamsulosin HCl [Flomax] 1 tab PO DAILY 05/06/17 pvvcvq-mwihrcd-zcx palm-min 17 capsule 1 cap PO DAILY cap 06/12/18 cranberry extract 500 mg tablet 500 mg PO DAILY 06/19/19 turmeric root extract 500 mg capsule 1,500 mg PO DAILY cap 06/19/19 nitroglycerin 0.4 mg sublingual tablet 0.4 mg SUBLINGUAL Q5-15M PRN #25 tab 10/13/20 furosemide 40 mg tablet 40 mg PO DAILY PRN #90 tab 12/13/20 Garlic 1,000 mg PO DAILY 01/27/21 Potassium Chloride [K-Tab ER] 20 meq PO DAILY PRN 01/27/21 Ubidecarenone [Coq-10] 100 mg PO DAILY 01/27/21 Lisinopril [Zestril] 40 mg PO DAILY #30 tablet 01/28/21 Following Prescriptions Were Given to Patient: Lisinopril [Zestril] 40 mg PO DAILY #30 tablet Transmission Status: Received by [id number] Primary Care Physician: Juan Duopnt DO [COURTESY STAFF PHYSICIAN] - Please follow up with your Primary Care Physician in: Within the next 2 weeks Please Follow Up With: Wilber Vences MD When: Proceed to your appointment this week Minutes spent on discharge:: 35 Patient Condition:: Good Medical Necessity - Tobacco Use Smoking Status: Never smoker Tobacco Use: Non-smoker Meaningful Use Info Meaningful Use Diagnoses (Choose all that apply): None applicable <Sadie Hernandez - Last Filed: 01/28/21 15:39> Discharge Date and Diagnosis - Primary Discharge Diagnosis Acute Problems: Active Problems (Last Reviewed 08/01/20 @ 15:53 by Cyndi Carlos) Chest pain (Acute) - Secondary Discharge Diagnosis Chronic Problems: Chronic Problems (Last Reviewed 08/01/20 @ 15:53 by Cyndi Carlos) Ascending aorta dilatation (Chronic) Ischemic cardiomyopathy (Chronic) Essential hypertension (Chronic) Presence of stent in coronary artery (Chronic ~07/2015) PTCA/FABRICIO to mid left CX and LAD 07/2015 Atherosclerotic heart disease of [place] coronary artery without angina pectoris (Chronic) PTCA/FABRICIO to mid left CX and LAD 07/2015 Hyperlipidemia (Chronic) Hospital Course and Treatment Procedures: EKG Summary of Care Provided: Hospitalist note: Discharge summary above reviewed and I concur with above discharge treatment plan. Patient admitted because of atypical chest pain for evaluation. Initial EKG revealed normal sinus rhythm without evidence of acute ischemic changes. Troponin was negative x3. BNP was normal. Routine blood work was unremarkable. Chest x-ray showed no acute findings. Patient had a history of CAD status post stents back in 2014. He underwent nuclear stress test that showed no evidence of stress-induced myocardial ischemia. ACS ruled out. During his hospital stay, patient's blood pressure was on the higher side and he mentioned that his blood pressure was kind of elevated compared to his baseline. Lisinopril was increased from 20 mg p.o. daily to 40 mg p.o. daily. Patient discharged home in a stable medical condition, continued on his previous home medications, only change was made was increasing lisinopril from 20 mg p.o. daily to 40 mg p.o. daily, recommended to check blood pressure at least twice a day and keep blood pressure log, recommended follow-up with PCP in 1 to 2 weeks. - Physical Exam General: Alert, Oriented x3, Cooperative, No apparent distress. HEENT: Atraumatic, PERRLA, EOMI. Neck: Supple, No JVD, Negative Carotid Bruits, Trachea Midline, Thyroid Normal. Lungs: Clear to auscultation, Normal air movement, No rhonchi, No wheeze, No rales. Cardiovascular: Regular rate, Regular Rhythm, Normal S1, Normal S2, PMI Normal. Abdomen: Bowel Sounds Present, Soft, Non Tender, Non-Distended, No Hepato- splenomegaly. Extremities: No clubbing, No cyanosis, No edema Skin: No rashes, No breakdown Neurological: Cranial nerves are intact, neuro grossly intact Vital Signs are stable. This note was generated with Dragon dictation software. It may contain incorrect words, spelling, and punctuation that were not noted in checking the note before signing. - Physical Exam Vitals/I&O's: Vital Signs Temp Pulse Resp BP Pulse Ox 97.6 F L 53 L 16 154/66 H 95 01/28/21 07:56 01/28/21 07:56 01/28/21 07:56 01/28/21 07:56 01/28/21 07:56 Oxygen Delivery Method Room Air Weight: 202 lb Body Mass Index (BMI) 29.0 Intake and Output for Last 24 Hours 01/26/21 01/27/21 01/28/21 23:59 23:59 23:59 Intake Total 200 / 200 Output Total 1275 / 1275 1200 / 1200 Balance -1075 / -1075 -1200 / -1200 Laboratory Results 01/27/21 16:30: Troponin I < 0.015 01/27/21 19:32: Troponin I < 0.015 01/28/21 06:55: WBC 6.1, RBC 4.63, Hgb 14.6, Hct 44.8, MCV 96.8 H, MCH 31.5, MCHC 32.6, RDW Std Deviation 48.6 H, RDW Coeff of Michael 13.5, Plt Count 214, MPV 10.3, Immature Gran % (Auto) 0.300, Neut % (Auto) 66.9, Lymph % (Auto) 20.3, [place] % (Auto) 9.3, Eos % (Auto) 2.9, Baso % (Auto) 0.3, Absolute Neuts (auto) 4.1, Absolute Lymphs (auto) 1.24, Nucleated RBC % 0 01/28/21 06:55: Sodium 140, Potassium 3.7, Chloride 105, Carbon Dioxide 31.0, Anion Gap 4 L, BUN 15, Creatinine 0.76, Estim Creat Clear Calc 60.83, Est GFR (MDRD) Af Amer 126, Est GFR (MDRD) Non-Af 104, BUN/Creatinine Ratio 19.6, Glucose 84, Calcium 8.8, Total Bilirubin 1.40 H, AST 20, ALT 23, Alkaline Phosphatase 70, Total Protein 6.3 L, Albumin 3.3, Globulin 3.0, Albumin/Globulin Ratio 1.1 Disposition: Home Minutes spent on discharge:: 27 Patient Condition:: Stable Meaningful Use Info Meaningful Use Diagnoses (Choose all that apply): None applicable OBSV E&M: 16489 Observation care discharge
== END 2021-01-28 11:19 | disposition home or self-care (01) ==
LOC: ED 14:43 → PCU 15:11
PROVIDERS: Admitting Provider Internal Medicine; Emergency Provider Emergency Medicine; PCP Student in an Organized Health Care Education/Training Program; Visit Provider Hospitalist
DX: R07.89 Other chest pain (principal); M79.89 Other specified soft tissue disorders; I11.0 Hypertensive heart disease with heart failure; R42 Dizziness and giddiness; E78.5 Hyperlipidemia, unspecified; I25.10 Atherosclerotic heart disease of native coronary artery without angina pectoris; I50.22 Chronic systolic (congestive) heart failure; R06.02 Shortness of breath; I25.5 Ischemic cardiomyopathy; N40.0 Benign prostatic hyperplasia without lower urinary tract symptoms; I25.2 Old myocardial infarction; Z79.899 Other long term (current) drug therapy; Z79.82 Long term (current) use of aspirin; Z95.5 Presence of coronary angioplasty implant and graft; Z66 Do not resuscitate
CPT/HCPCS: 36415; 71045; 78452; 80048; 80053; 83735; 83880; 84484; 85025; 93005; 93017; 96372; 99218; 99285; A9500; A4216; G0378; J2785

== ENCOUNTER → 2021-02-03 06:51 | Outpatient (CLI) | payer BC, SELFPAY ==
[2021-01-27 15:38] VITALS: BMI 29.0
[2021-02-03 07:31] LABS: AST(SGOT) 18 U/L (15-37); Alanine Aminotransfer ALT/SGPT 27 U/L (16-61); Albumin, Serum 3.6 g/dL (3.2-5.0); Alkaline Phosphatase 69 U/L (45-117); Anion Gap 2 (5-15); BUN 23 mg/dL (7-18); Bilirubin, Direct 0.29 mg/dL (0.00-0.30); Chloride 106 mmol/L (98-107); Cholesterol 211 mg/dL (200); EST Glomerular Filtration Rate 76 mL/min (>60); Est Glom Filt Rate - Afr Amer 92 mL/min (>60); Globulin 3.1 g/dL (2.2-4.2); Glucose 89 mg/dL (74-106); High Density Lipoprotein 57 mg/dL; Potassium 4.2 mmol/L (3.5-5.1); Protein, Total 6.7 g/dL (6.4-8.2); Sodium Level 140 mmol/L (136-145); Triglycerides 114 mg/dL; Very Low Density Lipoprotein 23 mg/dL (5-40)
== END ==
PROVIDERS: Nurse Practitioner Family; PCP Student in an Organized Health Care Education/Training Program; Referring Provider Internal Medicine Cardiovascular Disease; Visit Provider Internal Medicine Cardiovascular Disease
DX: E78.5 Hyperlipidemia, unspecified (principal); I10 Essential (primary) hypertension; I25.10 Atherosclerotic heart disease of native coronary artery without angina pectoris; I25.5 Ischemic cardiomyopathy; I35.1 Nonrheumatic aortic (valve) insufficiency; Z79.899 Other long term (current) drug therapy; Z95.5 Presence of coronary angioplasty implant and graft
CPT/HCPCS: 36415; 80048; 80061; 80076

== ENCOUNTER 2021-12-05 06:55 | Outpatient (CLI) | payer BC, SELFPAY ==
[2021-12-05 07:54] LABS: AST(SGOT) 19 U/L (15-37); Alanine Aminotransfer ALT/SGPT 27 U/L (16-61); Albumin, Serum 3.5 g/dL (3.2-5.0); Alkaline Phosphatase 57 U/L (45-117); Anion Gap 2 (5-15); BUN 28 mg/dL (7-18); BUN/Creat Ratio 32.4 RATIO (10-20); Bilirubin, Direct 0.24 mg/dL (0.00-0.30); Chloride 107 mmol/L (98-107); Cholesterol 201 mg/dL (200); Creatinine, Serum 0.86 mg/dL (0.70-1.30); EST Glomerular Filtration Rate 90 mL/min (>60); Est Glom Filt Rate - Afr Amer 109 mL/min (>60); Globulin 3.3 g/dL (2.2-4.2); Glucose 88 mg/dL (74-106); High Density Lipoprotein 57 mg/dL; Potassium 4.5 mmol/L (3.5-5.1); Protein, Total 6.8 g/dL (6.4-8.2); Sodium Level 141 mmol/L (136-145); Triglycerides 123 mg/dL; Very Low Density Lipoprotein 25 mg/dL (5-40)
== END 2021-12-05 23:59 | disposition short-term general hospital (02) ==
PROVIDERS: PCP Student in an Organized Health Care Education/Training Program; Referring Provider Internal Medicine Cardiovascular Disease; Visit Provider Internal Medicine Cardiovascular Disease
DX: I25.10 Atherosclerotic heart disease of native coronary artery without angina pectoris (principal); E78.5 Hyperlipidemia, unspecified
CPT/HCPCS: 36415; 80048; 80061; 80076

== ENCOUNTER 2022-01-23 07:48 | Outpatient (CLI) | payer BC, SELFPAY ==
--- NOTE | 2022-01-23 07:56 | ECHOD_ITS ---
Reason For Study: ASCENDING AORTIC DILATATION Procedure This was a 2D Doppler, Color Flow transthoracic echocardiogram. The study was technically difficult. Exam performed in department. Left Ventricle Normal LV size. Segmental dysfunction with preserved ejection fraction (see wall motion). The estimated ejection fraction is 55 %. No evidence for diastolic dysfunction. Infero-Basal: Akinetic. Mid-Anterior : Hypokinetic. Mid-Posterior: Hypokinetic. Mid-Inferior: Hypokinetic. Mid- inferoseptal : Hypokinetic. Mid-anteroseptal : Hypokinetic. Anterior [place] : Hypokinetic. Inferior [place] : Hypokinetic. Septal [place] : Hypokinetic. Right Ventricle Normal RV size. Normal systolic function. Atria Normal left atrium. Normal right atrium. No doppler evidence for ASD. Mitral Valve There is no mitral annular calcification. Normal mitral valve. Trivial mitral valve insufficiency. Tricuspid Valve Normal tricuspid valve. Trivial tricuspid valve insufficiency. Right ventricular systolic pressure estimated to be 25 mmHg. Aortic Valve Trisinus/trileaflet aortic valve. Moderate focal aortic valve calcification. Mild (1+) eccentric aortic valve insufficiency. Pulmonic Valve The pulmonic valve is not well visualized. Trivial pulmonic valve insufficiency. Great Vessels Borderline to mildly enlarged aortic root. Pericardium/Pleural No pericardial effusion. MMode/2D Measurements & Calculations LVIDd: 4.4 cm IVSd: 0.98 cm Ao root diam: 3.7 cm LVIDs: 3.2 cm LVPWd: 0.98 cm RVDd: 3.2 cm FS: 28.6 % LAV(MOD-bp): 47.3 ml LVAd ap4: 36.8 cm2 SV(MOD-sp4): 74.1 ml LAV(MOD-bp) Indexed: 22.7 ml/m2 LVLd ap4: 8.5 cm LAV(MOD-sp2): 48.7 ml EDV(MOD-sp4): 133.2 ml LAV(MOD-sp4): 42.4 ml EDV(sp4-el): 134.5 ml LVAs ap4: 23.1 cm2 LVLs ap4: 7.6 cm ESV(MOD-sp4): 59.2 ml ESV(sp4-el): 59.4 ml EF(MOD-sp4): 55.6 % EF(sp4-el): 55.8 % SV(sp4-el): 75.0 ml LA A4 area: 16.7 cm2 LA dimension(2D): 3.5 cm RA A4 area: 12.4 cm2 Time Measurements MV dec time: 0.24 sec Doppler Measurements & Calculations MV E max robin: 50.7 cm/sec Lat Peak E' Robin: 6.7 cm/sec Med Peak E' Robin: 5.4 cm/sec MV A max robin: 82.7 cm/sec E/E' lat: 7.5 E/E' med: 9.3 MV E/A: 0.61 Ao V2 max: 157.1 cm/sec AI max robin: 324.7 cm/sec LV V1 max: 113.8 cm/sec Ao max P.9 mmHg AI max P.5 mmHg LV V1 max P.2 mmHg AI dec slope: 138.2 cm/sec2 AI P1/2t: 688.0 msec PA V2 max: 72.8 cm/sec TR max robin: 237.3 cm/sec TR max P.5 mmHg ECHO/Echo Complete Interpretation Summary The study was technically difficult. Segmental dysfunction with preserved ejection fraction (see wall motion). The estimated ejection fraction is 55 %. Trivial mitral valve insufficiency. Trivial tricuspid valve insufficiency. Moderate focal aortic valve calcification. Mild (1+) eccentric aortic valve insufficiency. Trivial pulmonic valve insufficiency. Borderline to mildly enlarged aortic root. Right ventricular systolic pressure estimated to be 25 mmHg. No evidence for diastolic dysfunction. Ordering Physician: Wilber Vences Referring Physician: PRITI DAMON Performed By: Crystal Lynn RDCS
== END 2022-01-23 23:59 | disposition home or self-care (01) ==
PROVIDERS: PCP Student in an Organized Health Care Education/Training Program; Referring Provider Internal Medicine Cardiovascular Disease; Visit Provider Internal Medicine Cardiovascular Disease
DX: I77.810 Thoracic aortic ectasia (principal); I25.5 Ischemic cardiomyopathy; Z95.5 Presence of coronary angioplasty implant and graft; I25.10 Atherosclerotic heart disease of native coronary artery without angina pectoris
CPT/HCPCS: 93306

== ENCOUNTER 2022-01-31 08:21 | Emergency (ER) | payer BC, SELFPAY ==
[2022-01-31 08:22] VITALS: BP 203/78; PULSE 59; RESP 14; TEMP 36; O2SAT 98; BMI 29.2
[2022-01-31 08:37] VITALS: BP 193/76; PULSE 63; RESP 15; O2SAT 97
--- NOTE | 2022-01-31 08:38 | CT_ITS ---
STUDY: CTA CHEST REASON FOR EXAM: Male, 81 years old. Pain -- H/O ascending aorta dilation RADIATION DOSAGE (If Supplied By Facility): CTDIvol = ( 16.32 ) mGy, DLP = ( 641.35 ) mGycm TECHNIQUE: The examination was performed with the intravenous administration of IV 100mL Isovue-370. Post-processing of the angiographic images was performed, with multiplanar reformation and 3D reconstruction. Individualized dose optimization techniques were used for this CT. COMPARISON: Comparison is made with prior study dated 10/12/2019. FINDINGS: Normal enhancement of the main pulmonary artery and right and left pulmonary arteries. Normal enhancement of the bilateral peripheral pulmonary arteries. There is no demonstrated pulmonary embolism. There is aneurysmal dilatation of the ascending aorta. The transverse diameter of the ascending aorta measures 42.3 mm''s. There is no demonstrated aortic dissection. 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 There are calcifications of the coronary arteries. Normal mediastinum. Normal hilar regions. Normal visualized trachea and bronchi. The lungs are well expanded. Stable mild linear scarring at the lung bases. Normal pleura. Normal chest wall structures. Normal osseous structures. Normal visualized upper abdomen. CT/CTA Chest W/WO Contrast IMPRESSION: Dilatation at the root of the ascending thoracic aorta with a transverse dimension of 42.3 mm. Aberrant origin of the right subclavian artery. Electronically Signed: Lobo Corbett MD at 9:40 EDT ,
--- NOTE | 2022-01-31 08:39 | EKG12_ITS ---
Test Reason : CP Blood Pressure : / mmHG Vent. Rate : 061 BPM Atrial Rate : 061 BPM P-R Int : 204 ms QRS Dur : 132 ms QT Int : 414 ms P-R-T Axes : 015 -55 -06 degrees QTc Int : 416 ms Sinus rhythm with Premature atrial complexes Left axis deviation NSIVCD Abnormal ECG Confirmed by LATRELL REED, DONALD ([id number]), dictionary editor PETR DANIELLE ([id number]) on 02/02/2022 8:42:31 AM Referred By: SEBAS Confirmed By:DONALD SAMS MD
--- NOTE | 2022-01-31 08:40 | EX.ED.DYSGE1 ---
HPI History of Present Illness Chief Complaint: Hypertension Informant: patient Onset/Context/Timing Onset: Days Narrative Narrative: Patient presents secondary to sensation of sour stomach and pain in his shoulders. He notes his blood pressure has been elevated the last several days over 180 systolic. This morning he developed a sour stomach and he states that is the same symptom he had when he had his NH in 2014. He also has some pain across his shoulders and is not sure if he may have slept wrong. It is also noted in his history he has a documented ascending aortic dilation. [facility] Medical History (Updated 01/31/22 @ 11:[address] 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 BPH (benign prostatic hyperplasia) Essential hypertension History of non-ST elevation myocardial infarction (NSTEMI) Hyperlipidemia Ischemic cardiomyopathy Nonrheumatic aortic (valve) insufficiency Presence of stent in coronary artery (~07/2015) Thrombocytopenia Home Medications aspirin 81 mg PO DAILY@0800 05/06/17 [History Last Taken 01/27/21] tamsulosin 1 tablet PO DAILY 05/06/17 [History Last Taken 01/26/21] cranberry extract 500 mg tablet 500 mg PO DAILY 06/19/19 [History Last Taken 01/27/21] turmeric root extract 500 mg capsule 1,500 mg PO DAILY cap 06/19/19 [History Last Taken 01/27/21] nitroglycerin 0.4 mg sublingual tablet 0.4 mg SL Q5-15M PRN #25 tablet 10/13/20 [Rx Last Taken Unknown] garlic 1,000 mg PO DAILY 01/27/21 [History Last Taken 01/27/21] potassium chloride 20 meq PO DAILY PRN 01/27/21 [History Last Taken 01/26/21] furosemide 40 mg tablet 40 mg PO DAILY PRN tablet 02/08/21 [History Last Taken Unknown] cholecalciferol (vitamin D3) 50 mcg (2,000 unit) tablet 50 mcg PO DAILY 12/06/21 [History Last Taken Unknown] d-mannose 500 mg capsule 500 mg PO DAILY cap 12/06/21 [History Last Taken Unknown] lisinopril 20 mg tablet 40 mg PO DAILY 12/06/21 [History Last Taken Unknown] loratadine 10 mg tablet 10 mg PO DAILY PRN 12/06/21 [History Last Taken Unknown] zinc gluconate 50 mg tablet 50 mg PO DAILY 12/06/21 [History Last Taken Unknown] Allergy/AdvReac Type Severity Reaction Status Date / Time hydromorphone [From Dilaudid] AdvReac when used Verified 01/31/22 08:22 with morphine morphine AdvReac when used Verified 01/31/22 08:22 with dilaudid caused shallow respirations Family History Father CAD (coronary artery disease) Myocardial infarction, Onset Age: 57 CHF (congestive heart failure) Brother CAD (coronary artery disease) Myocardial infarction Surgical History History of rotator cuff surgery History of tonsillectomy and adenoidectomy History of umbilical hernia repair Presence of coronary angioplasty implant and graft (~07/2015) Social History Smoking Status: Never smoker ROS ROS ED Constitutional Constitutional ED: Denies chills or fever(s) Eyes Eyes: Denies change in vision ENT ENT ED: Denies sore throat Cardiovascular Cardiovascular: Denies chest pain Respiratory/Chest Respiratory/Chest: Denies cough or dyspnea Gastrointestinal Gastrointestinal: Reports nausea and other Details: Sour stomach ; Denies abdominal pain or vomiting Musculoskeletal Musculoskeletal: Reports other Details: Pain across shoulder ; Denies back pain Integumentary Denies rash Neurologic Neurologic: Denies headache(s) or weakness Allergic/Immunologic Allergic/Immunologic ED: Denies urticaria EXAM Physical Exam Const Vital Signs: 01/31/22 08:22 01/31/22 08:37 01/31/22 08:44 Temperature 96.8 F L Temperature Source Temporal Pulse Rate 59 L 63 Respiratory Rate 14 15 Respiratory Pattern Normal Blood Pressure 203/78 H 193/76 H Blood Pressure Mean 119 115 Pulse Ox 98 97 Oxygen Delivery Method Room Air Room Air 01/31/22 10:08 Temperature Temperature Source Pulse Rate 74 Respiratory Rate 18 Respiratory Pattern Blood Pressure 176/76 H Blood Pressure Mean 109 Pulse Ox 99 Oxygen Delivery Method Room Air Positive well nourished and well developed General Appearance ED: well developed HEENT Reports moist mucous membranes Eyes PERRL and EOMs intact bilaterally Neck supple Chest Wall inspection of chest normal and palpation of chest normal Resp normal respiratory effort and clear to auscultation bilaterally Cardio regular rate and regular rhythm GI non-tender Palpation: soft Extremity normal to inspection Neuro oriented x3 Sensorium / Orientation: alert Psych mental status grossly normal Skin no rashes or lesions noted MDM MDM MDM Narrative Medical decision making narrative: In review of records patient was noted to have an ascending aortic dilatation. In light of this with his symptoms CTA of the chest was ordered. EKG and lab work also obtained. Lab Data Attestation: I reviewed the patient's lab results. Labs: Laboratory Results - last 24 hr 01/31/22 01/31/22 01/31/22 08:35 08:35 10:48 WBC 7.5 RBC 4.78 Hgb 15.6 Hct 46.7 MCV 97.7 H MCH 32.6 H MCHC 33.4 RDW Std Deviation 46.4 H RDW Coeff of Michael 13.0 Plt Count 207 MPV 10.4 Immature Gran % (Auto) 0.400 Neut % (Auto) 69.2 Lymph % (Auto) 19.5 [place] % (Auto) 6.8 Eos % (Auto) 3.6 Baso % (Auto) 0.5 Absolute Neuts (auto) 5.2 Absolute Lymphs (auto) 1.46 Nucleated RBC % 0 Sodium 137 Potassium 4.1 Chloride 102 Carbon Dioxide 31.0 Anion Gap 4 L BUN 26 H Creatinine 0.94 Estim Creat Clear Calc 63.64 Est GFR (MDRD) Af Amer 99 Est GFR (MDRD) Non-Af 82 BUN/Creatinine Ratio 27.7 H Glucose 99 Calcium 9.3 Troponin I High Sens 6 12 Radiography Diagnostic Testing: Clinical Impression(s) from Imaging Studies Chest CTA 01/31/22 08:38 IMPRESSION: Dilatation at the root of the ascending thoracic aorta with a transverse dimension of 42.3 mm. Aberrant origin of the right subclavian artery. Electronically Signed: Lobo Corbett MD at 9:40 EDT , EKG Initial EKG: Attestation: I personally reviewed and interpreted this EKG as follows: Interpretation: Sinus Rhythm (Sinus at 61 with no acute ischemia.) Treatment and Re-Evaluation Narrative: Initial lab work unremarkable with a troponin of 6. CTA of the chest reveals dilation of the root of the ascending thoracic aorta with a transverse dimension of 42 mm. Patient was initially ordered hydralazine but on repeat checks blood pressure had come down on its own to the 150-160 systolic range. This was held. After returning from CT blood pressure did go back up to 170. Because he had not taken his normal morning lisinopril this was ordered for him. Repeat troponin is obtained and is now 12 for a delta of 6. Patient be discharged home at this time. He is to continue his current medical regimen and monitor his blood pressure. Discharge Plan Triage Chief Complaint: Hypertension ED Provider: Ofe Palomino Dx/Rx/DC Orders Clinical Impression: Hypertension Instructions: ED Hypertension, Established Prescriptions: No Action turmeric root extract 500 mg capsule 1,500 mg PO DAILY RF: 0 cranberry extract 500 mg tablet 500 mg PO DAILY RF: 0 furosemide 40 mg tablet 40 mg PO DAILY PRN (Reason: edema) RF: 0 lisinopril 20 mg tablet 40 mg PO DAILY RF: 0 loratadine 10 mg tablet 10 mg PO DAILY PRN (Reason: allergy symptoms) RF: 0 d-mannose 500 mg capsule 500 mg PO DAILY RF: 0 cholecalciferol (vitamin D3) 50 mcg (2,000 unit) tablet 50 mcg PO DAILY RF: 0 zinc gluconate 50 mg tablet 50 mg PO DAILY RF: 0 tamsulosin 0.4 MG capsule 1 tablet PO DAILY RF: 0 aspirin 81 MG tablet 81 mg PO DAILY@0800 RF: 0 garlic 1,000 MG capsule 1,000 mg PO DAILY RF: 0 potassium chloride 20 MEQ tablet extended release 20 meq PO DAILY PRN (Reason: Supplement [employer]) RF: 0 nitroglycerin 0.4 mg tablet, sublingual 0.4 mg SL Q5-15M PRN (Reason: chest pain) Qty: 25 RF: 3 Primary Care Provider: Jacob Canada Referrals: Jacob Canada DO [Primary Care Provider] - 1 Week Disposition Disposition: Home, Self Care
[2022-01-31 08:48] LABS: Absolute Lymphocyte Count 1.46 X10^3/uL (0.83-4.51); Absolute Neutrophil Count 5.2 X10^3/uL (2.0-7.7); Basophil# 0.04 X10^3/uL; Basophil% 0.5 % (0-1); Eosinophil# 0.27 X10^3/uL; Eosinophils% 3.6 % (0-5); Hematocrit 46.7 % (40-54); Hemoglobin 15.6 g/dL (13.0-16.5); Lymphocyte # 1.46 X10^3/ul (0.83-4.51); Lymphocyte % 19.5 % (19-41); Mean Corp Hgb Conc 33.4 g/dL (32-36); Mean Corpuscular Hgb 32.6 pg (27.0-32.0); Mean Corpuscular Volume 97.7 fL (80-94); Mean Platelet Vol. 10.4 fl (6.2-12.0); Monocyte# 0.51 X10^3/uL; Monocyte% 6.8 % (0-10); NRBC Flagged by Analyzer 0 % (0-5); Neutrophil # 5.18 X10^3/uL (2.7-7.7); Neutrophil % 69.2 % (47-70); Platelet Count 207 K/mm3 (150-450); RBC Distribution Width SD 46.4 fl (35.1-43.9); Red Blood Count 4.78 M/mm3 (4.6-6.2); White Blood Count 7.5 K/mm3 (4.4-11.0)
[2022-01-31] MEDS: Aspirin 81 MG TAB.CHEW 324 MG PO (09:00)
[2022-01-31 09:05] LABS: BUN 26 mg/dL (7-18); BUN/Creat Ratio 27.7 RATIO (10-20); Calcium,Total 9.3 mg/dL (8.5-10.1); Chloride 102 mmol/L (98-107); Creatinine, Serum 0.94 mg/dL (0.70-1.30); EST Glomerular Filtration Rate 82 mL/min (>60); Est Glom Filt Rate - Afr Amer 99 mL/min (>60); Estimated Creatinine Clearance 63.64 ml/min; Glucose 99 mg/dL (74-106); Potassium 4.1 mmol/L (3.5-5.1); Sodium Level 137 mmol/L (136-145); Troponin-I HS 6 pg/mL (3.0-78.0)
[2022-01-31 09:06] LABS: Anion Gap 4 (5-15)
[2022-01-31 10:08] VITALS: BP 176/76; PULSE 74; RESP 18; O2SAT 99
[2022-01-31] MEDS: Lisinopril 40 MG Tablet PO (10:49)
[2022-01-31 11:24] LABS: Troponin-I HS 12 pg/mL (3.0-78.0)
[2022-01-31 11:55] VITALS: BP 164/75; PULSE 54; RESP 18; O2SAT 99
--- NOTE | 2022-02-07 12:34 | CM.ED ---
ER RNCM DC F/u Call: Seen in ER 01.31.22 for HTN Called patient's listed cell number provided on demographics. Patient answered phone and this information writer introduced self and role. Patient states that he is feeling really good, his BP has been a little high still SBP 150's-160's. Has not made a f/u appt yet but states that he will. Plan is to message Dr Vences and see if he recommends f/u with him or PCP for HTN Med management/control. No further issues, concerns or questions voiced to this provider at this time. Santy Osorio RNCM
== END 2022-01-31 11:59 | disposition home or self-care (01) ==
PROVIDERS: Emergency Provider Emergency Medicine; PCP Student in an Organized Health Care Education/Training Program; Visit Provider Emergency Medicine
DX: I10 Essential (primary) hypertension (principal); I77.810 Thoracic aortic ectasia; E78.5 Hyperlipidemia, unspecified; I25.10 Atherosclerotic heart disease of native coronary artery without angina pectoris; I25.5 Ischemic cardiomyopathy; N40.0 Benign prostatic hyperplasia without lower urinary tract symptoms; Z95.5 Presence of coronary angioplasty implant and graft; Z86.2 Personal history of diseases of the blood and blood-forming organs and certain disorders involving the immune mechanism; I25.2 Old myocardial infarction; Z79.82 Long term (current) use of aspirin; Z79.899 Other long term (current) drug therapy
CPT/HCPCS: 71275; 80048; 84484; 85025; 93005; 99285; Q9967; A4216

== ENCOUNTER 2022-04-12 20:44 | Observation (INO) | payer BC, MEDICARE, SELFPAY ==
[2022-04-12] VITALS (9 sets, daily range): BP systolic 145–169; BP diastolic 75–84; PULSE 77–98; RESP 18; TEMP 36.6–36.7; O2SAT 91–94; BMI 28.7; BMI 28.4
--- NOTE | 2022-04-12 21:16 | EDS_ITS ---
HPI History of Present Illness Chief Complaint: Shortness of Breath Informant: patient Onset/Context/Timing Onset: Yesterday Context: gradual Timing: Continuous Worsened by: Nothing Relieved by: Nothing Associated Symptoms cough, rhinorrhea, post nasal drip and sore throat; Negative for ear pain, fever, chills, sweats, clear sputum, white sputum, yellow sputum or green sputum Chest Pain: Positive for None Narrative Narrative: Patient presents with shortness of breath that began yesterday. Patient states it is gradually gotten worse. Patient states it has been constant. Patient states nothing makes it better nothing makes it worse. Patient admits to dry cough. Patient also admits to a sore throat, rhinorrhea, postnasal drainage. Patient denies any fevers or chills. Patient denies any chest pain. Patient states he tested positive for COVID today. Patient states that at times he feels disoriented and confused. Patient states that at home his pulse oximeter readings were 85 to 86%. Patient states he felt lightheaded at times. [facility] Medical History (Updated 04/12/22 @ 23:[address] 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 BPH (benign prostatic hyperplasia) Essential hypertension History of non-ST elevation myocardial infarction (NSTEMI) Hyperlipidemia Ischemic cardiomyopathy Nonrheumatic aortic (valve) insufficiency Presence of stent in coronary artery (~07/2015) Thrombocytopenia Home Medications aspirin 81 mg PO DAILY@0800 05/06/17 [History Last Taken 01/27/21] tamsulosin 1 tablet PO DAILY 05/06/17 [History Last Taken 01/26/21] cranberry extract 500 mg tablet 500 mg PO DAILY 06/19/19 [History Last Taken 01/27/21] turmeric root extract 500 mg capsule 1,500 mg PO DAILY cap 06/19/19 [History Last Taken 01/27/21] nitroglycerin 0.4 mg sublingual tablet 0.4 mg SL Q5-15M PRN #25 tablet 10/13/20 [Rx Last Taken Unknown] garlic 1,000 mg PO DAILY 01/27/21 [History Last Taken 01/27/21] potassium chloride 20 meq PO DAILY PRN 01/27/21 [History Last Taken 01/26/21] furosemide 40 mg tablet 40 mg PO DAILY PRN tablet 02/08/21 [History Last Taken Unknown] cholecalciferol (vitamin D3) 50 mcg (2,000 unit) tablet 50 mcg PO DAILY 12/06/21 [History Last Taken Unknown] d-mannose 500 mg capsule 500 mg PO DAILY cap 12/06/21 [History Last Taken Unknown] loratadine 10 mg tablet 10 mg PO DAILY PRN 12/06/21 [History Last Taken Unknown] zinc gluconate 50 mg tablet 50 mg PO DAILY 12/06/21 [History Last Taken Unknown] lisinopril 40 mg tablet 40 mg PO DAILY #90 tab 03/23/22 [Rx Last Taken Unknown] Allergy/AdvReac Type Severity Reaction Status Date / Time hydromorphone [From Dilaudid] AdvReac when used Verified 04/12/22 20:47 with morphine morphine AdvReac when used Verified 04/12/22 20:47 with dilaudid caused shallow respirations Family History Father CAD (coronary artery disease) Myocardial infarction, Onset Age: 57 CHF (congestive heart failure) Brother CAD (coronary artery disease) Myocardial infarction Surgical History History of rotator cuff surgery History of tonsillectomy and adenoidectomy History of umbilical hernia repair Presence of coronary angioplasty implant and graft (~07/2015) Social History Smoking Status: Never smoker ROS ROS ED Constitutional Constitutional ED: Denies chills or fever(s) Eyes Eyes: Reports blurry vision; Denies diplopia ENT ENT ED: Denies rhinorrhea or sore throat Cardiovascular Cardiovascular: Denies chest pain or palpitations Respiratory/Chest Respiratory/Chest: Reports cough and dyspnea Gastrointestinal Gastrointestinal: Denies nausea or vomiting Genitourinary Genitourinary ED: Denies dysuria or hematuria Musculoskeletal Musculoskeletal: Reports myalgias; Denies back pain or neck pain Integumentary Denies abscess or rash Neurologic Neurologic: Reports headache(s); Denies weakness Allergic/Immunologic Allergic/Immunologic ED: Denies mouth swelling or urticaria EXAM Physical Exam Const Vital Signs: 04/12/22 20:45 04/12/22 20:47 04/12/22 20:55 Temperature 98.0 F 98.0 F Temperature Source Temporal Temporal Pulse Rate 98 98 Respiratory Rate 18 18 Respiratory Effort Blood Pressure 169/84 H 169/84 H Blood Pressure Mean 112 112 Pulse Ox 94 94 93 Oxygen Delivery Method Room Air Room Air Room Air 04/12/22 20:56 04/12/22 21:47 04/12/22 22:23 Temperature 98.0 F Temperature Source Temporal Pulse Rate 98 83 Respiratory Rate 18 18 Respiratory Effort Non-Labored Short of Breath Blood Pressure 169/84 H 152/75 H Blood Pressure Mean 112 100 Pulse Ox 93 91 Oxygen Delivery Method Room Air Room Air Room Air Positive well nourished and well developed General Appearance ED: well developed and NAD HEENT Reports moist mucous membranes Neck supple and no JVD Resp normal respiratory effort and clear to auscultation bilaterally Cardio regular rate, regular rhythm and no murmurs GI normal to inspection, nondistended, normoactive bowel sounds and non-tender Palpation: soft Extremity normal to inspection General Extremety ED: Negative for edema or tenderness General Extremity: Negative for edema Neuro oriented x3, CN's II-XII intact bilaterally and no sensory deficits noted Sensorium / Orientation: alert Motor Exam: strength 5/5 throughout Psych mental status grossly normal Skin no rashes or lesions noted MDM MDM MDM Narrative Medical decision making narrative: Portable 1 view chest x-ray was obtained. On my interpretation, lung bryson are clear. There is normal cardiac silhouette. Bony thorax is normal. There is no acute process noted. Radiologist also interpreted the x-ray and agrees. CBC was within normal limits. Comprehensive metabolic profile was essentially within normal limits with the exception of a slightly elevated total bilirubin of 1.7 and glucose of 125. COVID-19 rapid antigen was obtained and was positive. Influenza A and influenza B swabs were obtained and were negative. Patient was ambulated on room air and his oxygen saturation dropped to 88% while ambulating. Case was discussed with the hospitalist. He recommended giving the patient a dose of Decadron here. This was ordered. She will admit the patient to her service. Patient and family understood and were agreeable with the plan. All questions were answered. Lab Data Attestation: I reviewed the patient's lab results. Labs: Laboratory Results - last 24 hr 04/12/22 04/12/22 21:45 21:45 WBC 8.2 RBC 4.77 Hgb 15.3 Hct 45.4 MCV 95.2 H MCH 32.1 H MCHC 33.7 RDW Std Deviation 46.0 H RDW Coeff of Michael 13.1 Plt Count 179 MPV 10.4 Immature Gran % (Auto) 0.200 Neut % (Auto) 82.7 H Lymph % (Auto) 8.1 L [place] % (Auto) 8.8 Eos % (Auto) 0.0 Baso % (Auto) 0.2 Absolute Neuts (auto) 6.8 Absolute Lymphs (auto) 0.66 L Nucleated RBC % 0 Sodium 137 Potassium 3.7 Chloride 104 Carbon Dioxide 26.0 Anion Gap 7 BUN 19 H Creatinine 0.86 Estim Creat Clear Calc 69.56 Est GFR (MDRD) Af Amer 109 Est GFR (MDRD) Non-Af 90 BUN/Creatinine Ratio 22.0 H Glucose 125 H Calcium 9.1 Total Bilirubin 1.70 H AST 18 ALT 24 Alkaline Phosphatase 60 Total Protein 7.3 Albumin 3.7 Globulin 3.6 Albumin/Globulin Ratio 1.0 Radiography Chest X-Ray - ED: 1 View, Read by ED Physician, Read by Radiologist and No Acute Disease Diagnostic Testing: Clinical Impression(s) from Imaging Studies Chest X-Ray 04/12/22 22:02 IMPRESSION: No radiographic evidence of acute cardiopulmonary disease. Electronically Signed: Joseph Garrett MD at 22:30 EDT Reading Location ID and State: [address] [place] [address] Tel , Service support , Discharge Plan Triage Chief Complaint: Shortness of Breath ED Provider: Jayme Zambrano Dx/Rx/DC Orders Clinical Impression: COVID-19, Hypoxia Prescriptions: No Action turmeric root extract 500 mg capsule 1,500 mg PO DAILY RF: 0 cranberry extract 500 mg tablet 500 mg PO DAILY RF: 0 furosemide 40 mg tablet 40 mg PO DAILY PRN (Reason: edema) RF: 0 loratadine 10 mg tablet 10 mg PO DAILY PRN (Reason: allergy symptoms) RF: 0 d-mannose 500 mg capsule 500 mg PO DAILY RF: 0 cholecalciferol (vitamin D3) 50 mcg (2,000 unit) tablet 50 mcg PO DAILY RF: 0 zinc gluconate 50 mg tablet 50 mg PO DAILY RF: 0 tamsulosin 0.4 MG capsule 1 tablet PO DAILY RF: 0 aspirin 81 MG tablet 81 mg PO DAILY@0800 RF: 0 garlic 1,000 MG capsule 1,000 mg PO DAILY RF: 0 potassium chloride 20 MEQ tablet extended release 20 meq PO DAILY PRN (Reason: Supplement Saturation Diver) RF: 0 nitroglycerin 0.4 mg tablet, sublingual 0.4 mg SL Q5-15M PRN (Reason: chest pain) Qty: 25 RF: 3 lisinopril 40 mg tablet 40 mg PO DAILY Qty: 90 RF: 3 Primary Care Provider: Jacob Canada Referrals: Jacob Canada DO [Primary Care Provider] - Disposition Disposition: Acute Care Hospital [facility]
[2022-04-12 21:57] LABS: Absolute Lymphocyte Count 0.66 X10^3/uL (0.83-4.51); Absolute Neutrophil Count 6.8 X10^3/uL (2.0-7.7); Basophil# 0.02 X10^3/uL; Basophil% 0.2 % (0-1); Hematocrit 45.4 % (40-54); Hemoglobin 15.3 g/dL (13.0-16.5); Lymphocyte # 0.66 X10^3/ul (0.83-4.51); Lymphocyte % 8.1 % (19-41); Mean Corp Hgb Conc 33.7 g/dL (32-36); Mean Corpuscular Hgb 32.1 pg (27.0-32.0); Mean Corpuscular Volume 95.2 fL (80-94); Mean Platelet Vol. 10.4 fl (6.2-12.0); Monocyte# 0.72 X10^3/uL; Monocyte% 8.8 % (0-10); NRBC Flagged by Analyzer 0 % (0-5); Neutrophil # 6.76 X10^3/uL (2.7-7.7); Neutrophil % 82.7 % (47-70); Platelet Count 179 K/mm3 (150-450); RBC Distribution Width CV 13.1 % (11.6-14.6); Red Blood Count 4.77 M/mm3 (4.6-6.2); White Blood Count 8.2 K/mm3 (4.4-11.0)
--- NOTE | 2022-04-12 22:02 | RAD_ITS ---
INDICATION: Dyspnea EXAMINATION/TECHNIQUE: X-RAY - XR Chest 1 View COMPARISON: January 27, 2021. FINDINGS: LINES/DEVICES: None. LUNGS: Linear subsegmental atelectasis in the lower lungs. No consolidation, edema or effusion. No pneumothorax. MEDIASTINUM AND CARDIOVASCULAR STRUCTURES: Cardiac silhouette not enlarged. Mild aortic tortuosity.. BONES AND SOFT TISSUES: Unremarkable. RAD/Chest 1 View (Portable) IMPRESSION: No radiographic evidence of acute cardiopulmonary disease. Electronically Signed: Joseph Garrett MD at 22:30 EDT ,
[2022-04-12 22:14] LABS: AST(SGOT) 18 U/L (15-37); Alanine Aminotransfer ALT/SGPT 24 U/L (16-61); Albumin, Serum 3.7 g/dL (3.2-5.0); Alkaline Phosphatase 60 U/L (45-117); Anion Gap 7 (5-15); BUN 19 mg/dL (7-18); Calcium,Total 9.1 mg/dL (8.5-10.1); Chloride 104 mmol/L (98-107); Creatinine, Serum 0.86 mg/dL (0.70-1.30); EST Glomerular Filtration Rate 90 mL/min (>60); Est Glom Filt Rate - Afr Amer 109 mL/min (>60); Estimated Creatinine Clearance 69.56 ml/min; Globulin 3.6 g/dL (2.2-4.2); Glucose 125 mg/dL (74-106); Potassium 3.7 mmol/L (3.5-5.1); Protein, Total 7.3 g/dL (6.4-8.2); Sodium Level 137 mmol/L (136-145)
--- NOTE | 2022-04-12 22:45 | HP.PCM.HOS_ITS ---
HPI - General General Date of Admission: 04/12/22 Date of Service: 04/12/22 Chief Complaint: Dyspnea, URI symptoms, hypoxia, + COVID testing outpatient. HPI Narrative The patient is an 81 y/o M w/ PMHx: CAD s/p PCI, HTN, HLD, Ischemic card iomyopathy, Ascending aortic dilation, BPH who presents to the [facility] ED on 04/12/22 with history of progressively worsening dyspnea over the last 24 hours with concurrent dry nonproductive cough, BL frontal headache, decreased appetite, mild sore throat, rhinorrhea, low grade temperatures with no marked dyspnea, pleuritic chest pain, N/V/D or alteration to his sense of taste and smell starting late in the day prior with sensation of disorientation and fatigue as well as malaise with home oximeter reading 85 to 86% on room air with reports of lightheadedness during these events prompting ED evaluation. Patient did not receive COVID vaccination. Patient notes that his is unvaccinated and does have an ongoing cancer diagnosis but has yet to be symptomatic. Work-up in the ED includes T 98, heart rate 98, BP 168/84, respiratory rate 18, oxygenation ranging 91 to 94% on room air but with ambulation drops to 88% on RA with recovery with rest, CBC with WC 8.2, hemoglobin 15.3, platelet 179 with lymphopenia, CMP with BUN/creat 19/0.86, glucose 125, T bili 1.70 otherwise hepatic profile unremarkable, rapid SARS COVID antigen positive, chest x-ray with no acute cardiopulmonary findings. In the ED following discussion with ED physician patient administered IV Decadron therapy. FOR[facility]LY [facility] Medical History Ascending aorta dilatation Atherosclerotic heart disease of [place] coronary artery without angina pectoris BPH (benign prostatic hyperplasia) Essential hypertension History of non-ST elevation myocardial infarction (NSTEMI) Hyperlipidemia Ischemic cardiomyopathy Nonrheumatic aortic (valve) insufficiency Presence of stent in coronary artery (~07/2015) Thrombocytopenia Home Medications aspirin 81 mg PO DAILY@0800 05/06/17 [History Last Taken 01/27/21] tamsulosin 1 tablet PO DAILY 05/06/17 [History Last Taken 01/26/21] cranberry extract 500 mg tablet 500 mg PO DAILY 06/19/19 [History Last Taken 01/27/21] turmeric root extract 500 mg capsule 1,500 mg PO DAILY cap 06/19/19 [History Last Taken 01/27/21] nitroglycerin 0.4 mg sublingual tablet 0.4 mg SL Q5-15M PRN #25 tablet 10/13/20 [Rx Last Taken Unknown] garlic 1,000 mg PO DAILY 01/27/21 [History Last Taken 01/27/21] potassium chloride 20 meq PO DAILY PRN 01/27/21 [History Last Taken 01/26/21] furosemide 40 mg tablet 40 mg PO DAILY PRN tablet 02/08/21 [History Last Taken Unknown] cholecalciferol (vitamin D3) 50 mcg (2,000 unit) tablet 50 mcg PO DAILY 12/06/21 [History Last Taken Unknown] d-mannose 500 mg capsule 500 mg PO DAILY cap 12/06/21 [History Last Taken Unknown] loratadine 10 mg tablet 10 mg PO DAILY PRN 12/06/21 [History Last Taken Unknown] zinc gluconate 50 mg tablet 50 mg PO DAILY 12/06/21 [History Last Taken Unknown] lisinopril 40 mg tablet 40 mg PO DAILY #90 tab 03/23/22 [Rx Last Taken Unknown] Allergy/AdvReac Type Severity Reaction Status Date / Time hydromorphone [From Dilaudid] AdvReac when used Verified 04/12/22 20:47 with morphine morphine AdvReac when used Verified 04/12/22 20:47 with dilaudid caused shallow respirations Family History (Updated 04/13/22 @ 00:[address] Marlen Mcdermott MD) Father CAD (coronary artery disease) Myocardial infarction, Onset Age: 57 CHF (congestive heart failure) Hypertension Brother CAD (coronary artery disease) Myocardial infarction Hypertension Mother Pancreatic cancer Hypertension Surgical History History of rotator cuff surgery History of tonsillectomy and adenoidectomy History of umbilical hernia repair Presence of coronary angioplasty implant and graft (~07/2015) Social History (Updated 04/13/22 @ 00:[address] Marlen Mcdermott MD) household members: spouse Smoking Status: Never smoker alcohol intake: never substance use type: does not use ROS ROS Narrative Admission Review of Systems: CONSTITUTIONAL: No weight loss, + fever, weakness or fatigue. HEENT: + Headache, sore throat, rhinorrhea. Eyes: No visual loss, blurred vision, double vision or yellow sclerae. Ears, Nose, Throat: No hearing loss, sneezing. SKIN: No rash or itching, lesions, wounds. CARDIOVASCULAR: No chest pain, chest pressure or chest discomfort, palpitations, edema, orthopnea, syncopal events. RESPIRATORY: + cough without marked dypsnea, No marked sputum, wheezing, hemoptysis. GASTROINTESTINAL: + anorexia, No nausea, vomiting, diarrhea, abdominal pain, melena, BRBPR. GENITOURINARY: No dysuria, frequency, urgency or retention. NEUROLOGICAL: + headache, No dizziness, syncope, paralysis, ataxia, numbness or tingling in the extremities, focal weakness, change in bowel or bladder control, seizure. MUSCULOSKELETAL: + muscle, back pain, joint pain or stiffness. HEMATOLOGIC: No anemia, bleeding or bruising. LYMPHATICS: No enlarged nodes. No history of splenectomy. PSYCHIATRIC: No history of depression or anxiety. ENDOCRINOLOGIC: No reports of sweating, cold or heat intolerance. No polyuria or polydipsia. ALLERGIES: No history of asthma, hives, eczema or rhinitis. Vital Signs Vital Signs Vital Signs: 04/12/22 20:45 04/12/22 20:47 04/12/22 20:55 Temperature 98.0 F 98.0 F Temperature Source Temporal Temporal Pulse Rate 98 98 Respiratory Rate 18 18 Respiratory Effort Blood Pressure 169/84 H 169/84 H Blood Pressure Mean 112 112 Pulse Ox 94 94 93 Oxygen Delivery Method Room Air Room Air Room Air 04/12/22 20:56 04/12/22 21:47 04/12/22 22:23 Temperature 98.0 F Temperature Source Temporal Pulse Rate 98 83 Respiratory Rate 18 18 Respiratory Effort Non-Labored Short of Breath Blood Pressure 169/84 H 152/75 H Blood Pressure Mean 112 100 Pulse Ox 93 91 Oxygen Delivery Method Room Air Room Air Room Air Weight Weight: 200 lb Body Mass Index (BMI) 28.7 Physical Exam Narrative Physical Examination: General: Awake, alert, oriented x 3 and cooperative, seated upright in the ED bed, fatigued and ill-appearing, mildly increased respiratory rate but no distress noted. Skin: Normal color, normal turgor, no icterus, no cyanosis. HEENT: AT/NC, EOMI, PERRLA, moderately dry MM, no carotid bruits or JVD noted. Lungs: Diffusely diminished, greater bases, mildly increased respiratory rate, no evidence of distress, no rales, ronchi or wheezing. Heart: Regular rate with regular rhythm; no gallop, rub audible. Abdomen: Soft, no obvious TTP, ND, distant hyperactive bowel sounds, no HSM. Extremities: No cyanosis, clubbing, or edema. Neurological: Patient awake, alert, oriented as noted, cognitive function i ntact; pupils equally reactive to light and accommodation, cranial nerves II-XII grossly normal, moving all 4 extremities, no focal deficits, strength moderately to severely global decrease secondary to acute presentation. Psychiatric: Affect appears fatigued, ill-appearing, no acute evidence of dep ressive or anxiety feelings. Results Lab / Micro Data Result Diagrams: 04/12/22 21:45 04/12/22 21:45 Labs: Laboratory Results - last 24 hr 04/12/22 21:45: WBC 8.2, RBC 4.77, Hgb 15.3, Hct 45.4, MCV 95.2 H, MCH 32.1 H, MCHC 33.7, RDW Std Deviation 46.0 H, RDW Coeff of Michael 13.1, Plt Count 179, MPV 10.4, Immature Gran % (Auto) 0.200, Neut % (Auto) 82.7 H, Lymph % (Auto) 8.1 L, [place] % (Auto) 8.8, Eos % (Auto) 0.0, Baso % (Auto) 0.2, Absolute Neuts (auto) 6.8, Absolute Lymphs (auto) 0.66 L, Nucleated RBC % 0 04/12/22 21:45: Sodium 137, Potassium 3.7, Chloride 104, Carbon Dioxide 26.0, Anion Gap 7, BUN 19 H, Creatinine 0.86, Estim Creat Clear Calc 69.56, Est GFR (MDRD) Af Amer 109, Est GFR (MDRD) Non-Af 90, BUN/Creatinine Ratio 22.0 H, Glucose 125 H, Calcium 9.1, Total Bilirubin 1.70 H, AST 18, ALT 24, Alkaline Phosphatase 60, Total Protein 7.3, Albumin 3.7, Globulin 3.6, Albumin/Globulin Ratio 1.0 Micro: Microbiology 04/12/22 21:55 Nasal Secretion SARS-CoV-2 & FLU Antigen (Rapid) - Final Radiology Impression Chest X-Ray 04/12/22 22:02 IMPRESSION: No radiographic evidence of acute cardiopulmonary disease. Electronically Signed: Joseph Garrett MD at 22:30 EDT , Assessment & Plan Assessment/Plan (1) COVID-19: (2) Hypoxia: PLAN: The patient is an 81 y/o M w/ PMHx: CAD s/p PCI, HTN, HLD, Ischemic cardiomyopathy, Ascending aortic dilation, BPH who presents to the [facility] ED on 04/12/22 with history of progressively worsening dyspnea over the last 24 hours with concurrent dry nonproductive cough, BL frontal headache, decreased appetite, mild sore throat, rhinorrhea, low grade temperatures with no marked dyspnea, pleuritic chest pain, N/V/D or alteration to his sense of taste and smell starting late in the day prior with sensation of disorientation and fatigue as well as malaise with home oximeter reading 85 to 86% on room air with reports of lightheadedness during these events prompting ED evaluation. #1. Acute Hypoxia secondary to Acute Viral Syndrome, COVID-19: Will admit to the MS telemetry, maintain on COVID precautions, will maintain on oxygen with wean as tolerated to room air, PRN albuterol, HOB, IS parameters w/ pending sputum cultures, respiratory viral panel and urine antigens, will obtain D- dimer, procalcitonin, CRP, CPK, Ferritin, LDH, trop and BNP, continue supportive care including q 2 hour turning including prone given no prone bed availability and judicious hydration, closely monitor for worsening status for ARDS and multiorgan failure, will initiate and continue IV decadron x 10 doses given < 94% oxygenation noted in the ED, speaking with pharmacy about antiviral options and if appropriate will initiate if available and effective against potentially omicron. If respiratory status worsens and patient requires airvo or BIPAP will request ID/Pulmonary involvement. #2. CAD: Status post PCI, continue aspirin, lisinopril, not on beta-naty per current review nor on statin therapy, defer to outpatient. #3. Ischemic cardiomyopathy: Status post [place] noted to be NSTEMI per records, continue aspirin, lisinopril, not on beta-naty therapy nor statin therapy, defer to outpatient. 01/23/2022 echocardiogram with segmental dysfunction with preserved EF, EF 55%, trivial MVI, trivial TVI, moderate focal AV calcification, mild eccentric ANDREW, trivial PVI, borderline to mildly enlarged aortic root, RVSP 25 mmHg with no evidence of diastolic dysfunction. #4. Known Ascending aortic dilation: 01/23/2022 echocardiogram with segmental dysfunction with preserved EF, EF 55%, trivial MVI, trivial TVI, moderate focal AV calcification, mild eccentric ANDREW, trivial PVI, borderline to mildly enlarged aortic root, RVSP 25 mmHg with no evidence of diastolic dysfunction. #5. Hypertension: Continue home regimen including lisinopril, Lasix with hold parameters as needed, PRN hydralazine. #6. Hyperlipidemia: Not on regimen, defer to outpatient. #7. BPH: We will continue patient on Flomax regimen. #8. DVT prophylaxis: SCDs, Lovenox. #9. CODE status: Patient HCPKIMMIE is his and son and living will is currently in place. Discussed CODE status at length including difference between FULL code, DNR-CCA and DNR-CC status. Following discussions about the differences in these status, requested DNR-CCA, no intubation. Patient amenable to antiviral treatment as well as airvo and BIPAP if needed. Advanced Care Planning Face to Face Time: 16 minutes. Charges/Coding Visit Charges OBSV E&M: 27645 Initial observation care L3 Procedures Hospitalists Procedures: 11273 Advncd Care Plan 30 Min
[2022-04-12] MEDS: dexAMETHasone 10 MG/ML Vial 6 MG IV (23:27)
[2022-04-12 23:56] LABS: BNP,B-Type NATRIURETIC PEPTIDE 61.3 pg/mL (0-100)
[2022-04-13] VITALS (8 sets, daily range): BP systolic 139–150; BP diastolic 46–73; PULSE 55–76; RESP 16–20; TEMP 35.8–37.3; O2SAT 94–98
[2022-04-13 00:04] LABS: Procalcitonin 0.12 ng/mL (0.00-0.09)
[2022-04-13 00:12] LABS: D-Dimer Quantitative (DVT/PE) 1.25 FEU/ug/m (0.27-0.49)
[2022-04-13] MEDS: 0.9% Normal Saline 1,000 ML 100 ML IV (00:16)
[2022-04-13] MEDS: 0.9% Saline Lock 10 ML Syringe IV ×3 (00:16→09:01)
[2022-04-13] MEDS: Enoxaparin 30 MG/0.3 ML Syringe SC ×2 (00:19→09:01)
[2022-04-13 00:29] LABS: Ferritin 147 ng/mL (26-388); LDH 169 U/L (87-241); Troponin-I HS 10 pg/mL (3.0-78.0)
--- NOTE | 2022-04-13 00:40 | CT_ITS ---
STUDY: CTA CHEST REASON FOR EXAM: Male, 81 years old. suspect PE RADIATION DOSAGE (If Supplied By Facility): CTDIvol = ( 19.46 ) mGy, DLP = ( 516.75 ) mGycm TECHNIQUE: The examination was performed with the intravenous administration of IV 100mL Isovue-370. Post-processing of the angiographic images was performed, with multiplanar reformation and 3D reconstruction. Individualized dose optimization techniques were used for this CT. COMPARISON: 10/12/2019. FINDINGS: Normal enhancement of the main pulmonary artery and right and left pulmonary arteries. Normal enhancement of the bilateral peripheral pulmonary arteries. There is no demonstrated pulmonary embolism. Normal thoracic aorta and visualized great vessels. 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 There is no demonstrated aortic dissection. Normal heart and pericardium. Normal mediastinum. Normal hilar regions. Normal visualized trachea and bronchi. The lungs are well expanded. Normal pulmonary parenchyma. Normal pleura. Normal chest wall structures. There are degenerative changes of thoracic spine. Normal visualized upper abdomen. CT/CTA Chest W/WO Contrast IMPRESSION: No demonstrated pulmonary embolism or arterial dissection. 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 Electronically Signed: Estrella Sosa MD at 2:13 EDT ,
[2022-04-13 05:25] LABS: Absolute Lymphocyte Count 0.82 X10^3/uL (0.83-4.51); Absolute Neutrophil Count 6.2 X10^3/uL (2.0-7.7); Basophil# 0.02 X10^3/uL; Basophil% 0.3 % (0-1); Hematocrit 45.6 % (40-54); Hemoglobin 14.7 g/dL (13.0-16.5); Lymphocyte # 0.82 X10^3/ul (0.83-4.51); Lymphocyte % 11.4 % (19-41); Mean Corp Hgb Conc 32.2 g/dL (32-36); Mean Corpuscular Hgb 31.9 pg (27.0-32.0); Mean Corpuscular Volume 98.9 fL (80-94); Mean Platelet Vol. 11.5 fl (6.2-12.0); Monocyte# 0.18 X10^3/uL; Monocyte% 2.5 % (0-10); NRBC Flagged by Analyzer 0 % (0-5); Neutrophil # 6.16 X10^3/uL (2.7-7.7); Neutrophil % 85.5 % (47-70); Platelet Count 150 K/mm3 (150-450); RBC Distribution Width CV 13.3 % (11.6-14.6); RBC Distribution Width SD 48.7 fl (35.1-43.9); Red Blood Count 4.61 M/mm3 (4.6-6.2); White Blood Count 7.2 K/mm3 (4.4-11.0)
[2022-04-13 05:51] LABS: AST(SGOT) 18 U/L (15-37); Alanine Aminotransfer ALT/SGPT 26 U/L (16-61); Albumin, Serum 3.4 g/dL (3.2-5.0); Alkaline Phosphatase 54 U/L (45-117); Anion Gap 7 (5-15); BUN 20 mg/dL (7-18); BUN/Creat Ratio 23.1 RATIO (10-20); Calcium,Total 8.7 mg/dL (8.5-10.1); Chloride 103 mmol/L (98-107); Creatinine, Serum 0.87 mg/dL (0.70-1.30); EST Glomerular Filtration Rate 90 mL/min (>60); Est Glom Filt Rate - Afr Amer 109 mL/min (>60); Estimated Creatinine Clearance 68.76 ml/min; Globulin 3.4 g/dL (2.2-4.2); Glucose 141 mg/dL (74-106); Potassium 4.1 mmol/L (3.5-5.1); Protein, Total 6.8 g/dL (6.4-8.2); Sodium Level 136 mmol/L (136-145)
--- NOTE | 2022-04-13 07:43 | PN.HOSP_ITS ---
Objective Data Objective Data Vital Signs: Vital Signs Temp Pulse Resp BP Pulse Ox 96.5 F L 61 20 H 149/73 H 96 04/13/22 04:16 04/13/22 04:16 04/13/22 04:16 04/13/22 04:16 04/13/22 04:16 Oxygen Delivery Method Room Air Weight: 198 lb 6.656 oz Body Mass Index (BMI) 28.4 Intake & Output: Intake and Output for Last 24 Hours 04/11/22 04/12/22 04/13/22 23:59 23:59 23:59 Intake Total 730 / 730 Output Total 200 / 200 Balance 530 / 530 Lab / Micro Data Result Diagrams: 04/13/22 04:08 04/13/22 04:08 Labs: Laboratory Results - last 24 hr 04/12/22 21:45: WBC 8.2, RBC 4.77, Hgb 15.3, Hct 45.4, MCV 95.2 H, MCH 32.1 H, MCHC 33.7, RDW Std Deviation 46.0 H, RDW Coeff of Michael 13.1, Plt Count 179, MPV 10.4, Immature Gran % (Auto) 0.200, Neut % (Auto) 82.7 H, Lymph % (Auto) 8.1 L, [place] % (Auto) 8.8, Eos % (Auto) 0.0, Baso % (Auto) 0.2, Absolute Neuts (auto) 6.8, Absolute Lymphs (auto) 0.66 L, Nucleated RBC % 0 04/12/22 21:45: Sodium 137, Potassium 3.7, Chloride 104, Carbon Dioxide 26.0, Anion Gap 7, BUN 19 H, Creatinine 0.86, Estim Creat Clear Calc 69.56, Est GFR (MDRD) Af Amer 109, Est GFR (MDRD) Non-Af 90, BUN/Creatinine Ratio 22.0 H, Glucose 125 H, Calcium 9.1, Total Bilirubin 1.70 H, AST 18, ALT 24, Alkaline Phosphatase 60, Total Protein 7.3, Albumin 3.7, Globulin 3.6, Albumin/Globulin Ratio 1.0 04/12/22 23:30: D-Dimer Quant (PE/DVT) 1.25 H* 04/12/22 23:30: Magnesium 2.0, Ferritin 147, Lactate Dehydrogenase 169, Troponin I High Sens 10, C-React Prot Ext Range 41.70 H 04/12/22 23:30: B-Natriuretic Peptide 61.3 04/12/22 23:30: Procalcitonin 0.12 H 04/13/22 04:08: WBC 7.2, RBC 4.61, Hgb 14.7, Hct 45.6, MCV 98.9 H, MCH 31.9, MCHC 32.2, RDW Std Deviation 48.7 H, RDW Coeff of Michael 13.3, Plt Count 150, MPV 11.5, Immature Gran % (Auto) 0.300, Neut % (Auto) 85.5 H, Lymph % (Auto) 11.4 L, [place] % (Auto) 2.5, Eos % (Auto) 0.0, Baso % (Auto) 0.3, Absolute Neuts (auto) 6.2, Absolute Lymphs (auto) 0.82 L, Nucleated RBC % 0 04/13/22 04:08: Sodium 136, Potassium 4.1, Chloride 103, Carbon Dioxide 26.0, Anion Gap 7, BUN 20 H, Creatinine 0.87, Estim Creat Clear Calc 68.76, Est GFR (MDRD) Af Amer 109, Est GFR (MDRD) Non-Af 90, BUN/Creatinine Ratio 23.1 H, Glucose 141 H, Calcium 8.7, Total Bilirubin 1.30 H, AST 18, ALT 26, Alkaline Phosphatase 54, Total Protein 6.8, Albumin 3.4, Globulin 3.4, Albumin/Globulin Ratio 1.0 Micro: Microbiology 04/13/22 00:42 Urine, Clean Catch Legionella Antigen - Final 04/12/22 21:55 Nasal Secretion SARS-CoV-2 & FLU Antigen (Rapid) - Final Radiography Diagnostic Testing: Radiology Impression Chest X-Ray 04/12/22 22:02 IMPRESSION: No radiographic evidence of acute cardiopulmonary disease. Electronically Signed: Joseph Garrett MD at 22:30 EDT , Chest CTA 04/13/22 00:40 IMPRESSION: No demonstrated pulmonary embolism or arterial dissection. 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 Electronically Signed: Estrella Sosa MD at 2:13 EDT , Assessment & Plan Assessment/Plan (1) COVID-19: (2) Hypoxia: PLAN: The patient is an 81 y/o M is admitted with worsening of shortness of breath for 1 day before admission along with nonproductive cough, rhinorrhea postnasal drip, bilateral frontal headache, loss of appetite and mild sore thr oat . Patient did not have fever chills. Pulse ox found 85 to 86% on room air in ED #1. Acute Hypoxia secondary to Acute Viral Syndrome, COVID-19: Will admit to the MS telemetry, maintain on COVID precautions, will maintain on oxygen with wean as tolerated to room air, PRN albuterol, HOB, IS parameters w/ pending sputum cultures, respiratory viral panel and urine antigens, will obtain D-dimer, procalcitonin, CRP, CPK, Ferritin, LDH, trop and BNP, continue supportive care including q 2 hour turning including prone given no prone bed availability and judicious hydration, closely monitor for worsening status for ARDS and multiorgan failure, will initiate and continue IV decadron x 10 doses given < 94% oxygenation noted in the ED, speaking with pharmacy about antiviral options and if appropriate will initiate if available and effective against potentially omicron. If respiratory status worsens and patient requires airvo or BIPAP will request ID/Pulmonary involvement. #2. CAD: Status post PCI, continue aspirin, lisinopril, not on beta-naty per current review nor on statin therapy, defer to outpatient. #3. Ischemic cardiomyopathy: Status post [place] noted to be NSTEMI per records, continue aspirin, lisinopril, not on beta-naty therapy nor statin therapy, defer to outpatient. 01/23/2022 echocardiogram with segmental dysfunction with preserved EF, EF 55%, trivial MVI, trivial TVI, moderate focal AV calcification, mild eccentric ANDREW, trivial PVI, borderline to mildly enlarged aortic root, RVSP 25 mmHg with no evidence of diastolic dysfunction. #4. Known Ascending aortic dilation: 01/23/2022 echocardiogram with segmental dysfunction with preserved EF, EF 55%, trivial MVI, trivial TVI, moderate focal AV calcification, mild eccentric ANDREW, trivial PVI, borderline to mildly enlarged aortic root, RVSP 25 mmHg with no evidence of diastolic dysfunction. #5. Hypertension: Continue home regimen including lisinopril, Lasix with hold parameters as needed, PRN hydralazine. #6. Hyperlipidemia: Not on regimen, defer to outpatient. #7. BPH: We will continue patient on Flomax regimen. #8. DVT prophylaxis: SCDs, Lovenox. #9. CODE status: Patient HCPKIMMIE is his and son and living will is currently in place. Discussed CODE status at length including difference between FULL code, DNR-CCA and DNR-CC status. Following discussions about the differences in these status, requested DNR-CCA, no intubation. Patient amenable to antiviral treatment as well as airvo and BIPAP if needed. Advanced Care Planning Face to Face Time: 16 minutes.
[2022-04-13] MEDS: Tamsulosin HCl 0.4 MG Capsule PO (09:01)
[2022-04-13] MEDS: Aspirin E.C. 81 MG Tablet PO (09:01)
[2022-04-13] MEDS: Lisinopril 40 MG Tablet PO (09:01)
[2022-04-13] MEDS: dexAMETHasone 4 MG/ML Vial 6 MG IV (09:01)
--- NOTE | 2022-04-13 09:45 | CASEMGMT ---
RN LALA called patient in room for initial transition planning/care coordination assessment. RN LALA introduced self and role at [facility]. Patient alert and oriented. Patient willing to participate in assessment and is able to answer all questions appropriately. Care providers, pharmacy, and demographics verified. Patient wishes to discharge home, denies need for home health at this time. Patient states he has no further needs or concerns at this time. CM to follow for discharge planning needs that may arise. PCP: Nancie Specialists: Vangie, oyster culturist; Lalita, urologist [place] Preferred Pharmacy: [facility] at discharge. Insurance: [employer] Prescription Benefit: yes Living Will/HPOA: yes, Anahi Whiteside LNOK: , son Living Arrangements: Patient lives with in a Condo with no steps to enter. Patient states he is independent at home and able to self isolate. Son is able to provided groceries and supplies. Patient had positive home covid test. Transportation: self, granddaughter, son DME/HHC: Patient states he has shower chair, raised toilet, walker, grab bars, and pulse ox at home. No previous HHC or SNF. Patient has no preferences for DME Disposition Plan: Patient to discharge home with family support and follow-up plans in place. Will monitor for home oxygen at discharge. Ricarda JAIN, RN, CM
--- NOTE | 2022-04-13 10:12 | PCM.DC ---
Discharge Instructions Diet Discharge Diet: 2000 mg Sodium Diet Activity Discharge Activity: Return to Normal Activity and May Not Drive ( quarantine period) Additional Activity Instructions:: Self quarantine for 19 days Dressing / Incision Call your doctor if you observe: Fever of 101 or Higher, Coldness, Increased Pain, Numbness or Tingling, Change in Color, Inability to urinate, Inability to have a bowel movement, Shortness of breath, Dizziness, Fainting spells, Swelling in the ankles, Chest pain, Prolonged hiccupping, Increased palpitations (irregular heartbeat) and Calf discomfort Follow Up Care Test Results: Test results from this visit will be discussed in further detail at your follow-up appointment, if applicable. Discharge Plan Admission Admit Date/Time: 04/12/22 23:02 Primary Reason for Your Visit: Acute hypoxic respiratory failure due to COVID-19 infection/URI Attending Provider: Saroj Ortiz Primary Care Provider: Jacob Canada Consulting Providers: Marlen Mcdermott Instructions Additional Instructions / Restrictions: Self quarantine for 19 days. Discharge Orders/Prescriptions Prescriptions: New dextromethorphan-guaifenesin [Mucinex DM] 60-1,200 mg tablet extended release 12 hr 1 tab PO Q12H Qty: 14 RF: 0 dexamethasone 6 mg tablet 6 mg PO DAILY Qty: 8 RF: 0 Eliquis 2.5 mg tablet 2.5 mg PO BID Qty: 30 RF: 0 Continued cranberry extract 500 mg tablet 500 mg PO DAILY RF: 0 furosemide 40 mg tablet 40 mg PO DAILY PRN (Reason: edema) RF: 0 loratadine 10 mg tablet 10 mg PO DAILY PRN (Reason: allergy symptoms) RF: 0 cholecalciferol (vitamin D3) 50 mcg (2,000 unit) tablet 50 mcg PO DAILY RF: 0 zinc gluconate 50 mg tablet 50 mg PO DAILY RF: 0 tamsulosin 0.4 MG capsule 1 tablet PO DAILY RF: 0 aspirin 81 MG tablet 81 mg PO DAILY@0800 RF: 0 potassium chloride 20 MEQ tablet extended release 20 meq PO DAILY PRN (Reason: Supplement Automotive Engineering Technician) RF: 0 garlic 1,000 MG capsule 1,000 mg PO DAILY Qty: 0 RF: 0 turmeric root extract 500 mg capsule 1,500 mg PO DAILY Qty: 0 RF: 0 d-mannose 500 mg capsule 500 mg PO DAILY Qty: 0 RF: 0 nitroglycerin 0.4 mg tablet, sublingual 0.4 mg SL Q5-15M PRN (Reason: chest pain) Qty: 25 RF: 3 lisinopril 40 mg tablet 40 mg PO DAILY Qty: 90 RF: 3 Referrals / Follow Up: Jacob Canada DO [Primary Care Provider] - Disposition Disposition (needs filled in before D/C Order can be placed): Home, Self Care
--- NOTE | 2022-04-13 12:31 | CASEMGMT ---
KRISTAL REEVES NOTE: Home ambulatory oxygen testing has been completed. Pt does not qualify for home oxygen. Jovi JAIN RN CM
--- NOTE | 2022-04-13 13:37 | DS.PCM_ITS ---
Providers Date of Admission: 04/12/22 Date of Discharge: 04/13/22 Primary Care Physician: Dr. Jacob Canada DO Reason For Visit: COVID,HYPOXIA Diagnosis Discharge Diagnosis (1) COVID-19: Status: Acute Code(s): U07.1 - COVID-19 (2) Hypoxia: Status: Acute Code(s): R09.02 - Hypoxemia Medications at Discharge Home Medications aspirin 81 mg PO DAILY@0800 05/06/17 tamsulosin 1 tablet PO DAILY 05/06/17 cranberry extract 500 mg tablet 500 mg PO DAILY 06/19/19 nitroglycerin 0.4 mg sublingual tablet 0.4 mg SL Q5-15M PRN #25 tablet 10/13/20 potassium chloride 20 meq PO DAILY PRN 01/27/21 furosemide 40 mg tablet 40 mg PO DAILY PRN tablet 02/08/21 cholecalciferol (vitamin D3) 50 mcg (2,000 unit) tablet 50 mcg PO DAILY 12/06/21 loratadine 10 mg tablet 10 mg PO DAILY PRN 12/06/21 zinc gluconate 50 mg tablet 50 mg PO DAILY 12/06/21 lisinopril 40 mg tablet 40 mg PO DAILY #90 tab 03/23/22 apixaban [Eliquis] 2.5 mg PO BID #30 tab 04/13/22 d-mannose 500 mg PO DAILY #0 cap 04/13/22 dexamethasone 6 mg PO DAILY #8 tab 04/13/22 dextromethorphan-guaifenesin [Mucinex DM] 1 tab PO Q12H #14 tab 04/13/22 garlic 1,000 mg PO DAILY #0 cap 04/13/22 turmeric root extract 1,500 mg PO DAILY #0 cap 04/13/22 Hospital Course Summary of Care Provided Hospital Course: This 81-year-old question gentleman was admitted with worsening shortness of breath/dyspnea for 24 hours along with dry nonproductive cough, bilateral frontal headache, postnasal drip, sore throat, rhinorrhea and low- grade temperature. Patient is not vaccinated with COVID. In ED, he was found to have COVID-positive. When patient came in the ER his pulse ox was 85 to 86% on room air but hypoxia improved at rest and since then patient did not require oxygen. Patient admitted on PCU. His further hospital course and management as follows 1. Acute COVID-19 infection with URI: Patient had a chest x-ray and CTPA which did not show pulmonary embolism or arterial dissection. Stable 4 cm ascending aortic aneurysm since previous study. Patient not hypoxic and maintains pulse ox 95% on room air, respiratory rate 16 therefore patient prefers to go home and self quarantine. Remdesivir discontinued. SARS rapid COVID 2 antigen positive and patient tested positive at home as her daughter is RN. Urinary antigens for pneumonia and respiratory panel negative. Pneumonia ruled out by chest x-ray and CTA chest. Patient is discharged on dexamethasone 6 mg daily to complete 10 days of course along with Mucinex DM and Eliquis 2.5 mg twice daily. #2. CAD with ischemic cardiomyopathy: Status post PCI, continue aspirin, lisinopril, follow-up outpatient. Not on beta-naty or statin at home exact contraindication unclear.01/23/2022 echocardiogram with segmental dysfunction with preserved EF, EF 55%, trivial MVI, trivial TVI, moderate focal AV calcification, mild eccentric ANDREW, trivial PVI, borderline to mildly enlarged aortic root, RVSP 25 mmHg with no evidence of diastolic dysfunction. #4. Stable ascending aorta aneurysm: 01/23/2022 echocardiogram with segmental dysfunction with preserved EF, EF 55%, trivial MVI, trivial TVI, moderate focal AV calcification, mild eccentric ANDREW, trivial PVI, borderline to mildly enlarged aortic root, RVSP 25 mmHg with no evidence of diastolic dysfunction. ED CTP on 04/12 shows a stable ascending aorta aneurysm #5. Hypertension: Continue home regimen including lisinopril, Lasix home dose #6. Hyperlipidemia: Outpatient follow-up #7. BPH: We will continue patient on Flomax regimen. #8. DVT prophylaxis: SCDs, discharged on Eliquis 2.5 mg twice daily for 2 weeks. Patient advised self quarantine for 19 days Discharge medication reconciliation done. Discharge follow-up instructions c ompleted. Discharge process discussed with the patient and all questions were answered to patient's satisfaction. Total time spent, exact 35 minutes on discharge meds reconciliation, examination, coordination of care with nurses and ancillary staff, review of imaging and blood test and discussion with the patient on follow-up instructions. Physical Exam Narrative Seen and examined. Patient does not have shortness of breath, respiratory distress chest pain or tightness. He has mild sore discomfort, nasal congestion. Postnasal drip is also gotten better. General: Alert, Oriented x3, Cooperative HEENT: Atraumatic, PERRLA, EOMI, Normocephalic Oral: No Gingival or Mucosal Lesions/ Ulcerations Neck: Supple, No JVD, Negative Carotid Bruits Lungs: Air entry equal in bilateral lung bases. No crepitation/rhonchi. No hypoxia or tachypnea Cardiovascular: Regular rate, Regular Rhythm, Normal S1, Normal S2, No murmurs Abdomen: Bowel Sounds Present, Soft, Non Tender, Non-Distended : No renal angle tenderness. No suprapubic tenderness. Extremities: No edema, Capillary Refill Less than 3 Seconds Skin: No rashes, No breakdown Musculoskeletal: No Tenderness to Palpation of Joints or Extremities Neurological: Cranial nerves II-XII grossly intact, DTR 2+/4 and Symmetrical, Neuro grossly intact Psych/Mental Status: Normal Affect, Appropriate. Weight / BMI Weight Weight: 198 lb 6.656 oz Body Mass Index (BMI) 28.4 ABG / Lab / Microbiology Data Result Diagrams: 04/13/22 04:08 04/13/22 04:08 Laboratory: Laboratory Results - last 24 hr 04/12/22 21:45: WBC 8.2, RBC 4.77, Hgb 15.3, Hct 45.4, MCV 95.2 H, MCH 32.1 H, MCHC 33.7, RDW Std Deviation 46.0 H, RDW Coeff of Michael 13.1, Plt Count 179, MPV 10.4, Immature Gran % (Auto) 0.200, Neut % (Auto) 82.7 H, Lymph % (Auto) 8.1 L, Storey % (Auto) 8.8, Eos % (Auto) 0.0, Baso % (Auto) 0.2, Absolute Neuts (auto) 6.8, Absolute Lymphs (auto) 0.66 L, Nucleated RBC % 0 04/12/22 21:45: Sodium 137, Potassium 3.7, Chloride 104, Carbon Dioxide 26.0, Anion Gap 7, BUN 19 H, Creatinine 0.86, Estim Creat Clear Calc 69.56, Est GFR (MDRD) Af Amer 109, Est GFR (MDRD) Non-Af 90, BUN/Creatinine Ratio 22.0 H, Glucose 125 H, Calcium 9.1, Total Bilirubin 1.70 H, AST 18, ALT 24, Alkaline Phosphatase 60, Total Protein 7.3, Albumin 3.7, Globulin 3.6, Albumin/Globulin Ratio 1.0 04/12/22 23:30: D-Dimer Quant (PE/DVT) 1.25 H* 04/12/22 23:30: Magnesium 2.0, Ferritin 147, Lactate Dehydrogenase 169, Troponin I High Sens 10, C-React Prot Ext Range 41.70 H 04/12/22 23:30: B-Natriuretic Peptide 61.3 04/12/22 23:30: Procalcitonin 0.12 H 04/13/22 04:08: WBC 7.2, RBC 4.61, Hgb 14.7, Hct 45.6, MCV 98.9 H, MCH 31.9, MCHC 32.2, RDW Std Deviation 48.7 H, RDW Coeff of Michael 13.3, Plt Count 150, MPV 11.5, Immature Gran % (Auto) 0.300, Neut % (Auto) 85.5 H, Lymph % (Auto) 11.4 L, Storey % (Auto) 2.5, Eos % (Auto) 0.0, Baso % (Auto) 0.3, Absolute Neuts (auto) 6.2, Absolute Lymphs (auto) 0.82 L, Nucleated RBC % 0 04/13/22 04:08: Sodium 136, Potassium 4.1, Chloride 103, Carbon Dioxide 26.0, Anion Gap 7, BUN 20 H, Creatinine 0.87, Estim Creat Clear Calc 68.76, Est GFR (MDRD) Af Amer 109, Est GFR (MDRD) Non-Af 90, BUN/Creatinine Ratio 23.1 H, Glucose 141 H, Calcium 8.7, Total Bilirubin 1.30 H, AST 18, ALT 26, Alkaline Phosphatase 54, Total Protein 6.8, Albumin 3.4, Globulin 3.4, Albumin/Globulin Ratio 1.0 Microbiology: Microbiology 04/13/22 00:42 Urine, Clean Catch Streptococcus pneumoniae Antigen (M - Final 04/13/22 00:42 Urine, Clean Catch Legionella Antigen - Final 04/12/22 21:55 Nasal Secretion SARS-CoV-2 & FLU Antigen (Rapid) - Final Radiography Diagnostic Testing: Radiology Impression Chest X-Ray 04/12/22 22:02 IMPRESSION: No radiographic evidence of acute cardiopulmonary disease. Electronically Signed: Joseph Garrett MD at 22:30 EDT , Chest CTA 04/13/22 00:40 IMPRESSION: No demonstrated pulmonary embolism or arterial dissection. 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 Electronically Signed: Estrella Sosa MD at 2:13 EDT , D/C Instructions Discharge Diet: 2000 mg Sodium Diet Additional Activity Instructions: Self quarantine for 19 days Call your doctor if you observe: Fever of 101 or Higher, Coldness, Increased Pain, Numbness or Tingling, Change in Color, Inability to urinate, Inability to have a bowel movement, Shortness of breath, Dizziness, Fainting spells, Swelling in the ankles, Chest pain, Prolonged hiccupping, Increased palpitations (irregular heartbeat) and Calf discomfort Meaningful Use Info Meaningful Use Diagnoses (Choose all that apply): None applicable Discharge Plan Admission Admit Date/Time: 04/12/22 23:02 Primary Reason for Your Visit: Acute hypoxic respiratory failure due to COVID- 19 infection/URI Attending Provider: Saroj Ortiz Primary Care Provider: Jacob Canada Consulting Providers: Marlen Mcdermott Instructions Additional Instructions / Restrictions: Self quarantine for 19 days. Discharge Orders/Prescriptions Prescriptions: New dextromethorphan-guaifenesin [Mucinex DM] 60-1,200 mg tablet extended release 12 hr 1 tab PO Q12H Qty: 14 RF: 0 dexamethasone 6 mg tablet 6 mg PO DAILY Qty: 8 RF: 0 Eliquis 2.5 mg tablet 2.5 mg PO BID Qty: 30 RF: 0 Continued cranberry extract 500 mg tablet 500 mg PO DAILY RF: 0 furosemide 40 mg tablet 40 mg PO DAILY PRN (Reason: edema) RF: 0 loratadine 10 mg tablet 10 mg PO DAILY PRN (Reason: allergy symptoms) RF: 0 cholecalciferol (vitamin D3) 50 mcg (2,000 unit) tablet 50 mcg PO DAILY RF: 0 zinc gluconate 50 mg tablet 50 mg PO DAILY RF: 0 tamsulosin 0.4 MG capsule 1 tablet PO DAILY RF: 0 aspirin 81 MG tablet 81 mg PO DAILY@0800 RF: 0 potassium chloride 20 MEQ tablet extended release 20 meq PO DAILY PRN (Reason: Supplement Public [facility] Dentist) RF: 0 garlic 1,000 MG capsule 1,000 mg PO DAILY Qty: 0 RF: 0 turmeric root extract 500 mg capsule 1,500 mg PO DAILY Qty: 0 RF: 0 d-mannose 500 mg capsule 500 mg PO DAILY Qty: 0 RF: 0 nitroglycerin 0.4 mg tablet, sublingual 0.4 mg SL Q5-15M PRN (Reason: chest pain) Qty: 25 RF: 3 lisinopril 40 mg tablet 40 mg PO DAILY Qty: 90 RF: 3 Referrals / Follow Up: Jacob Canada DO [Primary Care Provider] - Disposition Disposition (needs filled in before D/C Order can be placed): Home, Self Care Charges/Coding Visit Charges OBSV E&M: 14017 Observation care discharge
== END 2022-04-13 10:36 | disposition home or self-care (01) ==
LOC: ED 23:12 → PCU 23:27
PROVIDERS: Admitting Provider Family Medicine; Emergency Provider Emergency Medicine; PCP Student in an Organized Health Care Education/Training Program; Visit Provider Internal Medicine
DX: U07.1 COVID-19 (principal); I71.2 Thoracic aortic aneurysm, without rupture; R09.02 Hypoxemia; E78.5 Hyperlipidemia, unspecified; I25.5 Ischemic cardiomyopathy; I10 Essential (primary) hypertension; I25.10 Atherosclerotic heart disease of native coronary artery without angina pectoris; N40.0 Benign prostatic hyperplasia without lower urinary tract symptoms; I25.2 Old myocardial infarction; Z79.899 Other long term (current) drug therapy; R06.02 Shortness of breath; Z79.82 Long term (current) use of aspirin
CPT/HCPCS: 36415; 71045; 71275; 80053; 82728; 83615; 83735; 83880; 84145; 84484; 85025; 85379; 86140; 87428; 87449; 87633; 96361; 96372; 96374; 96376; 97161; 97165; 99218; 99251; 99285; J7030; J7050; Q9967; A4216; G0378; G0463; J0248

== ENCOUNTER → 2022-05-28 | Outpatient (CLI) | payer BC, SELFPAY ==
[2022-05-28 12:46] LABS: AST(SGOT) 17 U/L (15-37); Alanine Aminotransfer ALT/SGPT 21 U/L (16-61); Albumin, Serum 3.7 g/dL (3.2-5.0); Alkaline Phosphatase 58 U/L (45-117); Bilirubin, Direct 0.26 mg/dL (0.00-0.30); Cholesterol 219 mg/dL (200); Globulin 3.1 g/dL (2.2-4.2); High Density Lipoprotein 58 mg/dL; Protein, Total 6.8 g/dL (6.4-8.2); Triglycerides 109 mg/dL; Very Low Density Lipoprotein 22 mg/dL (5-40)
== END | disposition home or self-care (01) ==
LOC: LAB 11:07
PROVIDERS: PCP Student in an Organized Health Care Education/Training Program; Referring Provider Internal Medicine Cardiovascular Disease; Visit Provider Internal Medicine Cardiovascular Disease
DX: I25.10 Atherosclerotic heart disease of native coronary artery without angina pectoris (principal); E78.5 Hyperlipidemia, unspecified
CPT/HCPCS: 36415; 80061; 80076

== ENCOUNTER 2022-10-11 20:08 | Inpatient (IN) | payer BC, MEDICARE, SELFPAY ==
[2022-10-11] VITALS (10 sets, daily range): BP systolic 107–202; BP diastolic 52–105; PULSE 68–91; RESP 14–18; TEMP 36.6–36.7; O2SAT 93–99; BMI 28.8; BMI 28.5
--- NOTE | 2022-10-11 20:35 | RAD_ITS ---
INDICATION: chest pain EXAMINATION/TECHNIQUE: X-RAY - XR Chest 1 View COMPARISON: 04/12/2022. FINDINGS: LINES/DEVICES: None. LUNGS: No consolidation, edema or effusion. No pneumothorax. MEDIASTINUM AND CARDIOVASCULAR STRUCTURES: Cardiac silhouette not enlarged. Central airways and mediastinal contour are unremarkable. BONES AND SOFT TISSUES: Unremarkable. RAD/Chest 1 View (Portable) IMPRESSION: No radiographic evidence of acute cardiopulmonary disease. Electronically Signed: Bertha Mahoney MD at 21:20 EST Reading Location ID and State: [id number] / Tel , Service support ,
--- NOTE | 2022-10-11 20:38 | ED.VIS.CHEST ---
HPI History of Present Illness Chief Complaint: Chest Other Informant: patient Narrative Narrative: Patient presents with a discomfort in his neck and a metallic taste in his mouth. He had his first episode of this yesterday afternoon. He was seen by EMS but his symptoms resolved when he rested. He notes that if he gets up and walks around at all his symptoms get markedly worse. If he rests they get better. He states he has a little bit of the symptoms now but they are very minimal. He has gotten nauseated once or twice with this but not consistently. He is not diaphoretic at any time. He has not been dyspneic. Patient does have a history of heart disease. He had stents placed in 2015. He is on lisinopril and Flomax now but no antiplatelet drugs that I can get from him. He states the symptoms he has today are exactly the same when he had his heart attack and stents in 2014. This is why he came in. [facility] Medical History Ascending aorta dilatation Atherosclerotic heart disease of [place] coronary artery without angina pectoris BPH (benign prostatic hyperplasia) COVID-19 Essential hypertension History of non-ST elevation myocardial infarction (NSTEMI) Hyperlipidemia Ischemic cardiomyopathy Nonrheumatic aortic (valve) insufficiency Presence of stent in coronary artery (~07/2015) Thrombocytopenia Home Medications tamsulosin 0.4 mg capsule 1 tablet PO DAILY PROSTATE 05/06/17 [History Last Taken 01/26/21] lisinopril 40 mg tablet 40 mg PO DAILY #90 tabs 03/23/22 [Rx Last Taken Unknown] Allergy/AdvReac Type Severity Reaction Status Date / Time hydromorphone [From Dilaudid] AdvReac when used Verified 10/11/22 20:10 with morphine morphine AdvReac when used Verified 10/11/22 20:10 with dilaudid caused shallow respirations Family History Father CAD (coronary artery disease) Myocardial infarction, Onset Age: 57 CHF (congestive heart failure) Hypertension Brother CAD (coronary artery disease) Myocardial infarction Hypertension Mother Pancreatic cancer Hypertension Surgical History History of rotator cuff surgery History of tonsillectomy and adenoidectomy History of umbilical hernia repair Presence of coronary angioplasty implant and graft (~07/2015) Social History household members: spouse Smoking Status: Never smoker alcohol intake: never substance use type: does not use ROS ROS ED Constitutional Constitutional ED: Denies fever(s) ENT ENT ED: Reports sore throat; Denies rhinorrhea Cardiovascular Cardiovascular: Reports other Details: Patient states he really does not have pain in the chest. But he has a discomfort in his throat. ; Denies chest pain Respiratory/Chest Respiratory/Chest: Denies cough or dyspnea Gastrointestinal Gastrointestinal: Reports nausea; Denies abdominal pain or vomiting Musculoskeletal Musculoskeletal: Reports neck pain Integumentary Denies abscess or rash Neurologic Neurologic: Denies headache(s), paresthesias or weakness Psychiatric Psychiatric: Denies anxiety Endocrine Endocrinology: Denies polydipsia or polyuria Hematologic/Lymphatic Hematologic/Lymphatic: Denies easy bleeding or easy bruising Allergic/Immunologic Allergic/Immunologic ED: Denies urticaria EXAM Physical Exam Const Vital Signs: 10/11/22 20:10 10/11/22 20:14 Temperature 98.0 F Temperature Source Temporal Pulse Rate 82 Respiratory Rate 16 Blood Pressure 202/105 H Blood Pressure Mean 137 Pulse Ox 99 Oxygen Delivery Method Room Air Room Air Positive well nourished General Appearance ED: NAD HEENT Reports moist mucous membranes Neck supple Chest Wall inspection of chest normal and palpation of chest normal Resp normal respiratory effort and clear to auscultation bilaterally Cardio regular rate, regular rhythm and no murmurs GI normal to inspection, nondistended, normoactive bowel sounds Back/Spine no CVA tenderness Extremity normal to inspection Extremity Narrative: No tenderness. Distal pulses are equal in all extremities Neuro oriented x3 Psych mental status grossly normal Skin no rashes or lesions noted Heart Score History: Highly Suspicious ECG: Significant ST-Depression Age: >/= 65 years Risk Factors: >/= 3 Risk Factors or History of CAD Troponin: >/=3 x Normal Limit Score: 10 MDM MDM MDM Narrative Medical decision making narrative: I was handed the patient's EKG from triage. Due to a computer issue I am not able to bring up EKGs that are old. However we were able to get an old EKG. We note that this is acutely changed. I was also heading back to see the patient. After talking with the patient I find that his symptoms are the same as his prior IA. They are acute waxing and waning over the last 24 to 36 hours. He has acute EKG changes. Because of this we did call the STEMI. I then talked to Dr. Aguilar. I sent him both the current EKG and the old one from 31 January 2022. He recommended we treat the patient with nitroglycerin. We repeat the EKG. We will send this to him. At this point he is suspicious that this might not be acute. We are pending recheck of the patient and repeat EKG at this time. Repeat EKG was sent. Patient is going to the Telephone Sales Agent. Blood work was reviewed when available. CBC looked good. Coags were normal. His troponin was up at 352. He had normal renal function. Lab Data Attestation: I reviewed the patient's lab results. Labs: Laboratory Results - last 24 hr 10/11/22 10/11/22 10/11/22 20:30 20:30 20:30 WBC 9.7 RBC 4.87 Hgb 15.4 Hct 46.9 MCV 96.3 H MCH 31.6 MCHC 32.8 RDW Std Deviation 47.8 H RDW Coeff of Michael 13.3 Plt Count 215 MPV 11.0 Immature Gran % (Auto) 0.300 Neut % (Auto) 74.7 H Lymph % (Auto) 15.7 L [place] % (Auto) 7.5 Eos % (Auto) 1.5 Baso % (Auto) 0.3 Absolute Neuts (auto) 7.3 Absolute Lymphs (auto) 1.53 Nucleated RBC % 0 PT 12.9 INR 1.0 APTT 29.3 Sodium 141 Potassium 3.7 Chloride 107 Carbon Dioxide 27.0 Anion Gap 7 BUN 17 Creatinine 0.92 Estim Creat Clear Calc 61.91 Est GFR (MDRD) Af Amer 102 Est GFR (MDRD) Non-Af 84 BUN/Creatinine Ratio 18.5 Glucose 117 H Calcium 8.7 Troponin I High Sens 352 H* Radiography Diagnostic Testin views of his chest looked at by me and read by radiology showed no radiographic evidence of acute cardiopulmonary disease. Critical Care Time Critical Care Time: Yes Critical care time (excluding procedures): 30-74 minutes and - (38 minutes, repeat evaluation, repeat EKGs, medicating and placing orders, arranging admission, documentation) Discharge Plan Dx/Rx/DC Orders Clinical Impression: ST elevation IA (STEMI), Elevated troponin, Acute electrocardiogram changes Disposition Disposition: Acute Care Hospital [facility] Discharge Date/Time: 10/11/22 21:36
[2022-10-11 20:45] LABS: Absolute Lymphocyte Count 1.53 X10^3/uL (0.83-4.51); Absolute Neutrophil Count 7.3 X10^3/uL (2.0-7.7); Basophil# 0.03 X10^3/uL; Basophil% 0.3 % (0-1); Eosinophil# 0.15 X10^3/uL; Eosinophils% 1.5 % (0-5); Hematocrit 46.9 % (40-54); Hemoglobin 15.4 g/dL (13.0-16.5); Lymphocyte # 1.53 X10^3/ul (0.83-4.51); Lymphocyte % 15.7 % (19-41); Mean Corp Hgb Conc 32.8 g/dL (32-36); Mean Corpuscular Hgb 31.6 pg (27.0-32.0); Mean Corpuscular Volume 96.3 fL (80-94); Monocyte# 0.73 X10^3/uL; Monocyte% 7.5 % (0-10); NRBC Flagged by Analyzer 0 % (0-5); Neutrophil # 7.27 X10^3/uL (2.7-7.7); Neutrophil % 74.7 % (47-70); Platelet Count 215 K/mm3 (150-450); RBC Distribution Width CV 13.3 % (11.6-14.6); RBC Distribution Width SD 47.8 fl (35.1-43.9); Red Blood Count 4.87 M/mm3 (4.6-6.2); White Blood Count 9.7 K/mm3 (4.4-11.0)
[2022-10-11] MEDS: Aspirin 81 MG TAB.CHEW 324 MG PO (20:47)
[2022-10-11] MEDS: TICAGRELOR 90 MG TABLET 180 MG PO (20:48)
[2022-10-11] MEDS: Heparin Injection (Vial) 5,000 UNIT/ML VIAL 4000 UNIT IV (20:48)
[2022-10-11 20:55] LABS: Prothrombin Time (Protime)PT. 12.9 SECONDS (11.7-14.9)
[2022-10-11 20:56] LABS: Partial Thromboplast Time 29.3 Seconds (24.1-36.2)
[2022-10-11] MEDS: Nitroglycerin SL (ED/IMG/CATH) 0.4 MG TABLET SL ×3 (20:57→21:07)
--- NOTE | 2022-10-11 20:59 | HP.PCM.HOS_ITS ---
HPI - General General Date of Admission: 10/11/22 Date of Service: 10/11/22 Chief Complaint: Throat pain HPI Narrative JHOANA SHABAZZ, is a 82 M with a significant history of hypertension; BPH; CAD status post stents who presents emergency department with throat pain that started a day before presentation. A day before presentation paramedics saw him due to EKG and sent to the hospital. Because hospital determined that it was not cardiac source of chest pain patient was not brought to the hospital. His pain radiates to his bilateral arms. He had vomiting but he attributed it to the effects of anesthesia as he had cataract surgery a day before presentation. On the day of presentation his pain re-occurred about 4 hours before p resentation. His pain has maximum intensity of 7. And a minimum intensity of about 5 on a scale of 1-10. Also he reports a metallic taste in his mouth. Movement aggravate the pain and resting improves the pain. His pain is reminiscent of his previous episode of VT where he had 2 stents placed. He reports severely elevated blood pressure with systolic in the 200s on the day before presentation. [facility] Medical History Ascending aorta dilatation Atherosclerotic heart disease of [place] coronary artery without angina pectoris BPH (benign prostatic hyperplasia) COVID-19 Essential hypertension History of non-ST elevation myocardial infarction (NSTEMI) Hyperlipidemia Ischemic cardiomyopathy Nonrheumatic aortic (valve) insufficiency Presence of stent in coronary artery (~07/2015) Thrombocytopenia Home Medications tamsulosin 0.4 mg capsule 1 tablet PO DAILY PROSTATE 05/06/17 [History Last Taken 01/26/21] lisinopril 40 mg tablet 40 mg PO DAILY #90 tabs 03/23/22 [Rx Last Taken Unknown] Allergy/AdvReac Type Severity Reaction Status Date / Time hydromorphone [From Dilaudid] AdvReac when used Verified 10/11/22 20:10 with morphine morphine AdvReac when used Verified 10/11/22 20:10 with dilaudid caused shallow respirations Family History Father CAD (coronary artery disease) Myocardial infarction, Onset Age: 57 CHF (congestive heart failure) Hypertension Brother CAD (coronary artery disease) Myocardial infarction Hypertension Mother Pancreatic cancer Hypertension Surgical History History of rotator cuff surgery History of tonsillectomy and adenoidectomy History of umbilical hernia repair Presence of coronary angioplasty implant and graft (~07/2015) Social History household members: spouse Smoking Status: Never smoker alcohol intake: never substance use type: does not use ROS ROS Narrative Pertinent positives and pertinent negatives as noted in HPI. All other systems were reviewed and are negative Vital Signs Vital Signs Vital Signs: 10/11/22 20:10 10/11/22 20:14 10/11/22 20:37 Temperature 98.0 F Temperature Source Temporal Pulse Rate 82 Respiratory Rate 16 Blood Pressure 202/105 H Blood Pressure Mean 137 Pulse Ox 99 Oxygen Delivery Method Room Air Room Air Room Air Weight Weight: 88.451 kg Body Mass Index (BMI) 28.8 Physical Exam Narrative Physical exam: General: Well-nourished, well-developed. Head: Normocephalic, atraumatic, no tenderness Eyes: Vision is grossly intact. EOMI ENT, no trauma, moist mucous membranes, no rhinorrhea Neck: Nontender, full range of motion. CVS: Regular rate and rhythm. S1-S2 present. No murmur, gallop or rub. Respiratory : clear to auscultation bilaterally, chest wall nontender, no wheezing Abdomen: Soft, nontender, nondistended, normal bowel sounds, no masses : Deferred Back: Nontender, no CVA tenderness. Extremities: Nontender full range of motion, no trauma Skin: Normal color, no trauma, abrasions Neuro: Alert, oriented, cranial nerves II through XII grossly intact. Psychiatry: Normal mood. Normal affect. Not depressed. Not anxious. Results Lab / Micro Data Result Diagrams: 10/11/22 20:30 10/11/22 20:30 Labs: Laboratory Results - last 24 hr 10/11/22 20:30: WBC 9.7, RBC 4.87, Hgb 15.4, Hct 46.9, MCV 96.3 H, MCH 31.6, MCHC 32.8, RDW Std Deviation 47.8 H, RDW Coeff of Michael 13.3, Plt Count 215, MPV 11.0, Immature Gran % (Auto) 0.300, Neut % (Auto) 74.7 H, Lymph % (Auto) 15.7 L, [place] % (Auto) 7.5, Eos % (Auto) 1.5, Baso % (Auto) 0.3, Absolute Neuts (auto) 7.3, Absolute Lymphs (auto) 1.53, Nucleated RBC % 0 10/11/22 20:30: PT 12.9, INR 1.0, APTT 29.3 Assessment & Plan Assessment/Plan (1) STEMI (ST elevation myocardial infarction): PLAN: Plan ST elevation [place] Chest x-ray was visualized and independent interpreted. I agree with radiologist interpretation of no acute cardiopulmonary disease. EKG on presentation with multiple q waves like previous. However there is ST elevation in leads V1 to V6 unlike previous. Repeat EKG showed some improvement in ST elevations. Received aspirin, Brilinta and heparin bolus at emergency department. Emergent department discussed the case with a systems analyst developer and patient was taken to the [employer] Architect. Aspirin every day ordered. High intensity statin ordered. Check lipid panel. Initial troponin of 352, trend Lisinopril continued. Hypertension Blood pressure is not within goal Lisinopril continued. Trend blood pressure and adjust blood pressure medications. DVT Prophylaxis: Received therapeutic dose of heparin at the emergency department. Charges/Coding Visit Charges Inpatient E&M: 69683 Init Hosp L3
[2022-10-11 21:30] LABS: Anion Gap 7 (5-15); BUN 17 mg/dL (7-18); BUN/Creat Ratio 18.5 RATIO (10-20); Calcium,Total 8.7 mg/dL (8.5-10.1); Chloride 107 mmol/L (98-107); Creatinine, Serum 0.92 mg/dL (0.70-1.30); EST Glomerular Filtration Rate 84 mL/min (>60); Est Glom Filt Rate - Afr Amer 102 mL/min (>60); Estimated Creatinine Clearance 61.91 ml/min; Glucose 117 mg/dL (74-106); Potassium 3.7 mmol/L (3.5-5.1); Sodium Level 141 mmol/L (136-145); Troponin-I HS 352 pg/mL (3.0-78.0)
--- NOTE | 2022-10-11 23:04 | CON.PCM.CA_ITS ---
Assessment & Plan Assessment/Plan (1) NSTEMI (non-ST elevated myocardial infarction): PLAN: In view of patient's ongoing symptoms, coronary angiography was undertaken. It showed about 95% ulcerated lesion in the mid left anterior descending artery. Successful percutaneous intervention was performed with balloon angioplasty and placement of a drug-eluting stent. Excellent results were noted. Continue aspirin lifelong. Plavix treatment for at least 1 year. Risk factor modification. (2) Ischemic cardiomyopathy: PLAN: Chronic systolic congestive heart failure. Beta-blockers, angiotensin receptor blockers. Diuretics. (3) Essential hypertension: PLAN: Blood pressure uncontrolled. Start on beta-blockers, angiotensin receptor blockers. Thiazide diuretics. (4) Ascending aorta dilatation: PLAN: For blood pressure control. Follow as per primary director quality systems. (5) Hyperlipidemia: QUALIFIERS: Hyperlipidemia type: unspecified Qualified Code(s): E78.5 - Hyperlipidemia, unspecified PLAN: Atorvastatin. HPI Consult Data Date of Consult: 10/11/22 HPI Narrative HPI Narrative: Gentleman with past medical history of coronary artery disease and anterior CO. He presented to the emergency room with complaints of throat discomfort that started a day prior to presentation. According to the patient, the symptoms are exactly the same when he had his CO. Pain was intermittent but became more c onstant from about 4 hours prior to presentation. In the emergency room, EKG was done. It showed intraventricular conduction delay. Left ventricular hypertrophy was also noted. In view of his ongoing symptoms, it was decided to bring the patient to the cardiac catheterization lab for emergent coronary angiography and possible revascularization. 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 angina pectoris BPH (benign prostatic hyperplasia) COVID-19 Essential hypertension History of non-ST elevation myocardial infarction (NSTEMI) Hyperlipidemia Ischemic cardiomyopathy Nonrheumatic aortic (valve) insufficiency Presence of stent in coronary artery (~07/2015) Thrombocytopenia Home Medications tamsulosin 0.4 mg capsule 1 tablet PO DAILY PROSTATE 05/06/17 [History Last Taken 01/26/21] lisinopril 40 mg tablet 40 mg PO DAILY #90 tabs 03/23/22 [Rx Last Taken Unknown] Allergy/AdvReac Type Severity Reaction Status Date / Time hydromorphone [From Dilaudid] AdvReac when used Verified 10/11/22 20:10 with morphine morphine AdvReac when used Verified 10/11/22 20:10 with dilaudid caused shallow respirations Family History Father CAD (coronary artery disease) Myocardial infarction, Onset Age: 57 CHF (congestive heart failure) Hypertension Brother CAD (coronary artery disease) Myocardial infarction Hypertension Mother Pancreatic cancer Hypertension Surgical History History of rotator cuff surgery History of tonsillectomy and adenoidectomy History of umbilical hernia repair Presence of coronary angioplasty implant and graft (~07/2015) Social History household members: spouse Smoking Status: Never smoker alcohol intake: never substance use type: does not use Physical Exam Narrative Comfortable. No apparent distress. Heart rate regular rate and rhythm. Respirations unlabored. Neurological alert oriented x3. No ankle edema noted. Risk Stratification Risk Stratification Applicable: No Objective Data Vital Signs: Vital Signs Temp Pulse Resp BP Pulse Ox O2 Del Method 97.9 F 76 18 140/79 H 93 Room Air 10/11/22 21:16 10/11/22 21:16 10/11/22 21:16 10/11/22 21:16 10/11/22 21:16 10/11/22 21:16 Oxygen Delivery Method Room Air Weight: 195 lb Body Mass Index (BMI) 28.8 Lab / Micro Data Result Diagrams: 10/11/22 20:30 10/11/22 20:30 Labs: Laboratory Results - last 24 hr 10/11/22 20:30: WBC 9.7, RBC 4.87, Hgb 15.4, Hct 46.9, MCV 96.3 H, MCH 31.6, MCHC 32.8, RDW Std Deviation 47.8 H, RDW Coeff of Michael 13.3, Plt Count 215, MPV 11.0, Immature Gran % (Auto) 0.300, Neut % (Auto) 74.7 H, Lymph % (Auto) 15.7 L, Morrison % (Auto) 7.5, Eos % (Auto) 1.5, Baso % (Auto) 0.3, Absolute Neuts (auto) 7.3, Absolute Lymphs (auto) 1.53, Nucleated RBC % 0 10/11/22 20:30: Sodium 141, Potassium 3.7, Chloride 107, Carbon Dioxide 27.0, Anion Gap 7, BUN 17, Creatinine 0.92, Estim Creat Clear Calc 61.91, Est GFR (MDRD) Af Amer 102, Est GFR (MDRD) Non-Af 84, BUN/Creatinine Ratio 18.5, Glucose 117 H, Calcium 8.7, Troponin I High Sens 352 H* 10/11/22 20:30: PT 12.9, INR 1.0, APTT 29.3 Rhythm Strip Rhythm Strip: Sinus Rhythm Cardiology Labs/Tests 10/11/22 20:30: WBC 9.7, RBC 4.87, Hgb 15.4, Hct 46.9, MCV 96.3 H, MCH 31.6, MCHC 32.8, Plt Count 215, MPV 11.0, Immature Gran % (Auto) 0.300, Neut % (Auto) 74.7 H, Lymph % (Auto) 15.7 L, Morrison % (Auto) 7.5, Eos % (Auto) 1.5, Baso % (Auto) 0.3, Absolute Neuts (auto) 7.3, Nucleated RBC % 0 10/11/22 20:30: Sodium 141, Potassium 3.7, Chloride 107, Carbon Dioxide 27.0, Anion Gap 7, BUN 17, Creatinine 0.92, Est GFR (MDRD) Af Amer 102, Est GFR (MDRD) Non-Af 84, BUN/Creatinine Ratio 18.5, Glucose 117 H, Calcium 8.7 10/11/22 20:30: PT 12.9, INR 1.0, APTT 29.3 Rhythm: EKG: Sinus rhythm. Nonspecific intraventricular conduction delay. Left ventricular hypertrophy. ECHO: Stress Test: Cardiac Cath: PCI: CT Surgery: Holter monitor: EPS: PPM: CXR: Chest CT Scan: Radiography Diagnostic Testing: Radiology Impression Chest X-Ray 10/11/22 20:35 IMPRESSION: No radiographic evidence of acute cardiopulmonary disease. Electronically Signed: Bertha Mahoney MD at 21:20 EST Reading Location ID and State: [id number] / Tel , Service support ,
--- NOTE | 2022-10-11 23:17 | ECHOD_ITS ---
Reason For Study: CHEST PAIN Procedure This was a 2D Doppler, Color Flow transthoracic echocardiogram. Exam performed portable in ICU/CCU. Left Ventricle Normal LV size. Mild concentric left ventricular hypertrophy. The left ventricular ejection fraction is 45 %. Diastolic function is indeterminate. Mid to distal anterior septal, distal inferior septal and apical severe hypokinesis. Right Ventricle Normal right ventricle. Atria The left atrium is severely enlarged. Normal right atrium. Mitral Valve Trivial mitral valve insufficiency. Tricuspid Valve Trivial tricuspid valve insufficiency. Unable to estimate RV systolic pressure due to insufficient tricuspid regurgitant envelope. Aortic Valve Mild (1+) aortic valve insufficiency. Pulmonic Valve The pulmonic valve is not well visualized. Great Vessels Mildly dilated aortic root. Pericardium/Pleural No pericardial effusion. MMode/2D Measurements & Calculations LVIDd: 5.2 cm IVSd: 1.4 cm Ao root diam: 3.7 cm LVIDs: 4.1 cm LVPWd: 1.1 cm FS: 21.5 % LAV(MOD-bp): 74.1 ml LVAd ap4: 41.8 cm2 SV(MOD-sp4): 86.6 ml LAV(MOD-bp) Indexed: 36.1 ml/m2 LVLd ap4: 8.8 cm LAV(MOD-sp2): 70.4 ml EDV(MOD-sp4): 162.4 ml LAV(MOD-sp4): 66.7 ml EDV(sp4-el): 168.5 ml LVAs ap4: 27.1 cm2 LVLs ap4: 7.9 cm ESV(MOD-sp4): 75.8 ml ESV(sp4-el): 79.1 ml EF(MOD-sp4): 53.4 % EF(sp4-el): 53.0 % SV(sp4-el): 89.4 ml LA A4 area: 21.1 cm2 LA dimension(2D): 5.2 cm RA A4 area: 14.5 cm2 Time Measurements MV dec time: 0.25 sec Doppler Measurements & Calculations MV E max robin: 64.0 cm/sec Lat Peak E' Robin: 6.3 cm/sec Med Peak E' Robin: 4.4 cm/sec MV A max robin: 89.9 cm/sec E/E' lat: 10.1 E/E' med: 14.5 MV E/A: 0.71 MV V2 max: 77.9 cm/sec Ao V2 max: 145.6 cm/sec MV max P.5 mmHg MV dec slope: 283.2 cm/sec2 Ao max P.5 mmHg MV V2 mean: 38.0 cm/sec Ao V2 mean: 95.8 cm/sec MV mean P.1 mmHg Ao mean P.3 mmHg MV V2 VTI: 22.7 cm Ao V2 VTI: 28.5 cm AV (velocity ratio): 0.95 LV V1 max: 126.9 cm/sec PA V2 max: 101.1 cm/sec LV V1 max P.4 mmHg PA V2 mean: 65.1 cm/sec LV V1 mean P.5 mmHg LV V1 mean: 86.6 cm/sec LV V1 VTI: 27.2 cm ECHO/Echo Complete Interpretation Summary The left ventricular ejection fraction is 45 %. Diastolic function is indeterminate. The left atrium is severely enlarged. Mild (1+) aortic valve insufficiency. Mildly dilated aortic root. Ordering Physician: Klever Aguilar Referring Physician: Klever Aguilar Performed By: Gris Dominguez RCS
[2022-10-12] VITALS (28 sets, daily range): BP systolic 118–152; BP diastolic 61–89; PULSE 53–78; RESP 12–24; TEMP 36.6–37.1; O2SAT 94–99
[2022-10-12] MEDS: 0.9% Normal Saline 1,000 ML 100 ML IV (00:02)
[2022-10-12] MEDS: Losartan Potassium 50 MG Tablet PO ×2 (00:06→10:46)
[2022-10-12] MEDS: Atorvastatin Calcium 40 MG Tablet PO ×2 (00:06→20:51)
[2022-10-12] MEDS: Acetaminophen 325 MG Tablet 650 MG PO ×3 (00:07→20:38)
[2022-10-12] MEDS: 0.9% Saline Lock 10 ML Syringe IV (00:07)
[2022-10-12] MEDS: Carvedilol 3.125 MG TABLET PO ×3 (00:07→20:51)
[2022-10-12] MEDS: Clopidogrel Bisulfate 300 MG Tablet PO (03:40)
[2022-10-12 03:47] LABS: Absolute Lymphocyte Count 1.11 X10^3/uL (0.83-4.51); Absolute Neutrophil Count 8.2 X10^3/uL (2.0-7.7); Basophil# 0.02 X10^3/uL; Basophil% 0.2 % (0-1); Eosinophil# 0.02 X10^3/uL; Eosinophils% 0.2 % (0-5); Hematocrit 41.6 % (40-54); Lymphocyte # 1.11 X10^3/ul (0.83-4.51); Lymphocyte % 11.1 % (19-41); Mean Corp Hgb Conc 33.7 g/dL (32-36); Mean Corpuscular Hgb 32.2 pg (27.0-32.0); Mean Corpuscular Volume 95.6 fL (80-94); Mean Platelet Vol. 10.8 fl (6.2-12.0); Monocyte# 0.59 X10^3/uL; Monocyte% 5.9 % (0-10); NRBC Flagged by Analyzer 0 % (0-5); Neutrophil # 8.23 X10^3/uL (2.7-7.7); Neutrophil % 82.3 % (47-70); Platelet Count 192 K/mm3 (150-450); RBC Distribution Width CV 13.2 % (11.6-14.6); RBC Distribution Width SD 47.2 fl (35.1-43.9); Red Blood Count 4.35 M/mm3 (4.6-6.2)
[2022-10-12 04:05] LABS: ALB/GLOB Ratio 1.3 RATIO (0.9-2.4); AST(SGOT) 31 U/L (15-37); Alanine Aminotransfer ALT/SGPT 26 U/L (16-61); Albumin, Serum 3.3 g/dL (3.2-5.0); Alkaline Phosphatase 53 U/L (45-117); Anion Gap 5 (5-15); BUN 15 mg/dL (7-18); BUN/Creat Ratio 21.9 RATIO (10-20); Calcium,Total 8.6 mg/dL (8.5-10.1); Chloride 108 mmol/L (98-107); Cholesterol 185 mg/dL (200); Creatinine, Serum 0.69 mg/dL (0.70-1.30); EST Glomerular Filtration Rate 117 mL/min (>60); Est Glom Filt Rate - Afr Amer 142 mL/min (>60); Estimated Creatinine Clearance 56.95 ml/min; Globulin 2.6 g/dL (2.2-4.2); Glucose 110 mg/dL (74-106); High Density Lipoprotein 58 mg/dL; Potassium 3.6 mmol/L (3.5-5.1); Protein, Total 5.9 g/dL (6.4-8.2); Sodium Level 141 mmol/L (136-145); Triglycerides 97 mg/dL; Very Low Density Lipoprotein 19 mg/dL (5-40)
[2022-10-12 04:24] LABS: Troponin-I HS 4822 pg/mL (3.0-78.0)
[2022-10-12] MEDS: Metoclopramide 10 MG/2 ML Vial 5 MG IV (06:30)
[2022-10-12] MEDS: Aspirin E.C. 81 MG Tablet PO (08:33)
--- NOTE | 2022-10-12 08:38 | CRPHASE1_ITS ---
Patient Communication Former Patient:: Phase II PHII Cardiac Rehab Discussed with Patient:: Yes Guide to Cardiac Rehab Given to Patient:: Yes Cardiac Rehab Facility Choice List Given to Patient:: Yes Choice Program [facility] CR PHII:: Communication Given to CR Restorative Aide:: Klever Aguilar Phase II Cardiac Rehab:: Yes Sessions:: 36 sessions - 3 days/wk, 12 weeks Cardiac Rehabilitation Info Cardiac Rehabilitation Program Information: Cardiac Rehabilitation is important for patients like you who are recovering from a heart problem. Cardiac rehabilitation programs are recognized as integral to the continued care of the patient with coronary heart disease. The cardiac rehabilitation program is designed to optimize a patient's physical, psychological, and social functioning. Health anesthesiologist and critical care work in cardiac rehabilitation programs and assist you with getting the treatments you need to get stronger and healthier - like exercise, healthy eating habits, and medications. Cardiac rehabilitation has been show to help people with heart problems live longer and have better life enjoyment than people who do not go to cardiac rehabilitation. Please contact the Cardiac Rehabilitation Program at [facility] at in two weeks if you have not heard from them.
--- NOTE | 2022-10-12 08:39 | CRPH1.INSTRU ---
General Education CAD and cardiac anatomy and function:: Patient communicates acknowledgment, Needs reinforcement Explanation of diagnoses and procedures:: Patient communicates acknowledgment, Needs reinforcement Sign/Symptoms of [place]:: Patient communicates acknowledgment, Needs reinforcement Antiplatelet therapy: Patient communicates acknowledgment, Needs reinforcement Proper use of NTG-SL: Patient communicates acknowledgment, Needs reinforcement Emergency procedures and activation of EMS: Patient communicates acknowledgment, Needs reinforcement Compliance of all prescribed medications: Patient communicates acknowledgment, Needs reinforcement Dyslipidemia Patient Dyslipidemia Risk Factors Are:: Total Cholesterol, Triglycerides, HDL, LDL Recommendations Include:: Lipid profile provided, Therapeutic Lifestyle Change dietary guidelines Dyslipidemia Response Code:: Patient communicates acknowledgment, Needs reinforcement Overweight/Obesity Patient Overweight/Obesity Risk Factors Are:: BMI Normal [24-29 & > 65 years old] Recommendations Include:: Weight loss of 5-10%, Reduced calorie diet, Exercise 5-7 times/week Overweight/Obesity:: Patient communicates acknowledgment, Needs reinforcement Hypertension Recommendations Include:: Maintain BP <130/85, Decrease/maintain normal body weight Hypertension:: Patient communicates acknowledgment, Needs reinforcement Heart Disease Patient Heart Disease Risk Factors Are:: Previous cardiac event Recommendations Include:: Educated family members of their risk Heart Disease Response Code:: Patient communicates acknowledgment, Needs reinforcement Sedentary Patient Sedentary Risk Factors Are:: Lack of regular exercise Recommendations Include:: Aerobic exercise 5-7 times/week for 20-30 minutes continuously, Benefits of regular exercise, Discussed home walking program, Monitored Outpatient Cardiac Rehab Sedentary Response Code:: Patient communicates acknowledgment, Needs reinforcement Stress Patient Stress Risk Factors Are:: Patient denies stress as a risk factor Recommendations Include:: Identification of stressors, and assessment of coping skills Stress Response Code:: Patient communicates acknowledgment, Needs reinforcement
[2022-10-12 09:20] LABS: ACT Activated Clotting Time 197 sec (74-137)
[2022-10-12 09:21] LABS: ACT Activated Clotting Time 233 sec (74-137)
--- NOTE | 2022-10-12 09:29 | PN.CARD_ITS ---
Subjective Subjective Doing good. No chest pain. Objective Data Vital Signs: Vital Signs Temp Pulse Resp BP Pulse Ox O2 Del Method 98.1 F 78 17 137/81 H 95 Room Air 10/12/22 09:00 10/12/22 09:00 10/12/22 09:00 10/12/22 09:00 10/12/22 09:00 10/12/22 09:00 Oxygen Delivery Method Room Air Weight: 198 lb 10.184 oz Body Mass Index (BMI) 28.5 Intake & Output: Intake and Output for Last 24 Hours 10/10/22 10/11/22 10/12/22 23:59 23:59 23:59 Output Total 225 / 350 475 / 475 Balance -225 / -350 -475 / -475 Lab / Micro Data Attestation: I reviewed the patient's lab results. Result Diagrams: 10/12/22 03:40 10/12/22 03:40 Labs: Laboratory Results - last 24 hr 10/11/22 20:30: WBC 9.7, RBC 4.87, Hgb 15.4, Hct 46.9, MCV 96.3 H, MCH 31.6, MCHC 32.8, RDW Std Deviation 47.8 H, RDW Coeff of Michael 13.3, Plt Count 215, MPV 11.0, Immature Gran % (Auto) 0.300, Neut % (Auto) 74.7 H, Lymph % (Auto) 15.7 L, Moody % (Auto) 7.5, Eos % (Auto) 1.5, Baso % (Auto) 0.3, Absolute Neuts (auto) 7.3, Absolute Lymphs (auto) 1.53, Nucleated RBC % 0 10/11/22 20:30: Sodium 141, Potassium 3.7, Chloride 107, Carbon Dioxide 27.0, Anion Gap 7, BUN 17, Creatinine 0.92, Estim Creat Clear Calc 61.91, Est GFR (MDRD) Af Amer 102, Est GFR (MDRD) Non-Af 84, BUN/Creatinine Ratio 18.5, Glucose 117 H, Calcium 8.7, Troponin I High Sens 352 H* 10/11/22 20:30: PT 12.9, INR 1.0, APTT 29.3 10/11/22 21:35: Activated Clotting Time 197 H 10/11/22 22:40: Activated Clotting Time 233 H 10/12/22 03:40: WBC 10.0, RBC 4.35 L, Hgb 14.0, Hct 41.6, MCV 95.6 H, MCH 32.2 H , MCHC 33.7, RDW Std Deviation 47.2 H, RDW Coeff of Michael 13.2, Plt Count 192, MPV 10.8, Immature Gran % (Auto) 0.300, Neut % (Auto) 82.3 H, Lymph % (Auto) 11.1 L, Moody % (Auto) 5.9, Eos % (Auto) 0.2, Baso % (Auto) 0.2, Absolute Neuts (auto) 8.2 H, Absolute Lymphs (auto) 1.11, Nucleated RBC % 0 10/12/22 03:40: Sodium 141, Potassium 3.6, Chloride 108 H, Carbon Dioxide 28.0, Anion Gap 5, BUN 15, Creatinine 0.69 L, Estim Creat Clear Calc 56.95, Est GFR (MDRD) Af Amer 142, Est GFR (MDRD) Non-Af 117, BUN/Creatinine Ratio 21.9 H, Glucose 110 H, Calcium 8.6, Total Bilirubin 1.10 H, AST 31, ALT 26, Alkaline Phosphatase 53, Total Protein 5.9 L, Albumin 3.3, Globulin 2.6, Albumin/Globulin Ratio 1.3, Triglycerides 97, Cholesterol 185, LDL Cholesterol 108, VLDL Cholesterol 19, HDL Cholesterol 58 10/12/22 03:40: Troponin I High Sens 4822 H* Rhythm Strip Rhythm Strip: Sinus Rhythm Cardiology Labs/Tests 10/11/22 20:30: WBC 9.7, RBC 4.87, Hgb 15.4, Hct 46.9, MCV 96.3 H, MCH 31.6, MCHC 32.8, Plt Count 215, MPV 11.0, Immature Gran % (Auto) 0.300, Neut % (Auto) 74.7 H, Lymph % (Auto) 15.7 L, Moody % (Auto) 7.5, Eos % (Auto) 1.5, Baso % (Auto) 0.3, Absolute Neuts (auto) 7.3, Nucleated RBC % 0 10/11/22 20:30: Sodium 141, Potassium 3.7, Chloride 107, Carbon Dioxide 27.0, Anion Gap 7, BUN 17, Creatinine 0.92, Est GFR (MDRD) Af Amer 102, Est GFR (MDRD) Non-Af 84, BUN/Creatinine Ratio 18.5, Glucose 117 H, Calcium 8.7 10/11/22 20:30: PT 12.9, INR 1.0, APTT 29.3 10/12/22 03:40: WBC 10.0, RBC 4.35 L, Hgb 14.0, Hct 41.6, MCV 95.6 H, MCH 32.2 H , MCHC 33.7, Plt Count 192, MPV 10.8, Immature Gran % (Auto) 0.300, Neut % (Auto) 82.3 H, Lymph % (Auto) 11.1 L, Moody % (Auto) 5.9, Eos % (Auto) 0.2, Baso % (Auto) 0.2, Absolute Neuts (auto) 8.2 H, Nucleated RBC % 0 10/12/22 03:40: Sodium 141, Potassium 3.6, Chloride 108 H, Carbon Dioxide 28.0, Anion Gap 5, BUN 15, Creatinine 0.69 L, Est GFR (MDRD) Af Amer 142, Est GFR (MDRD) Non-Af 117, BUN/Creatinine Ratio 21.9 H, Glucose 110 H, Calcium 8.6, Total Bilirubin 1.10 H, Triglycerides 97, Cholesterol 185, LDL Cholesterol 108, VLDL Cholesterol 19, HDL Cholesterol 58 Rhythm: EKG: Normal sinus rhythm. Interventricular conduction delay. Changes consistent with recent non-ST elevation myocardial infarction ECHO: Stress Test: Cardiac Cath: PCI: CT Surgery: Holter monitor: EPS: PPM: CXR: Chest CT Scan: Radiography Diagnostic Testing: Radiology Impression Chest X-Ray 10/11/22 20:35 IMPRESSION: No radiographic evidence of acute cardiopulmonary disease. Electronically Signed: Bertha Mahoney MD at 21:20 EST Reading Location ID and State: [id number] / Tel , Service support , Physical Exam Narrative Heart sounds 1 and 2 are noted. Chest clear to auscultation anteriorly. Abdomen soft. Alert oriented x3. No ankle edema noted. Right radial pulse 2+. Right groin stable. No hematoma or bruit. Assessment & Plan Assessment/Plan (1) NSTEMI (non-ST elevated myocardial infarction): PLAN: Status post drug-eluting stent placement to the mid LAD. Stable. Asympto matic. Continue aspirin. Continue Plavix. (2) Ischemic cardiomyopathy: PLAN: Chronic systolic congestive heart failure. Beta-blockers, angiotensin receptor blockers. Diuretics. (3) Essential hypertension: PLAN: Blood pressure improved this morning. Continue medications. (4) Hyperlipidemia: QUALIFIERS: Hyperlipidemia type: unspecified Qualified Code(s): E78.5 - Hyperlipidemia, unspecified PLAN: Atorvastatin. PLAN: Plan If continues to be stable, then may DC home in tomorrow morning.
--- NOTE | 2022-10-12 10:23 | PN.HOSP_ITS ---
Subjective Subjective Patient seen and examined. HE feels much better today. He denies any chest pain, palpitations, nausea, vomiting or diarrhea. Review of systems is otherwise negative. He is s/p cath and had balloon PCI and stent placement in mid LAD. Objective Data Objective Data Vital Signs: Vital Signs Temp Pulse Resp BP Pulse Ox O2 Del Method 98.1 F 78 17 137/81 H 95 Room Air 10/12/22 09:00 10/12/22 09:00 10/12/22 09:00 10/12/22 09:00 10/12/22 09:00 10/12/22 09:00 Oxygen Delivery Method Room Air Weight: 198 lb 10.184 oz Body Mass Index (BMI) 28.5 Intake & Output: Intake and Output for Last 24 Hours 10/10/22 10/11/22 10/12/22 23:59 23:59 23:59 Output Total 225 / 350 475 / 475 Balance -225 / -350 -475 / -475 Lab / Micro Data Result Diagrams: 10/12/22 03:40 10/12/22 03:40 Labs: Laboratory Results - last 24 hr 10/11/22 20:30: WBC 9.7, RBC 4.87, Hgb 15.4, Hct 46.9, MCV 96.3 H, MCH 31.6, MCHC 32.8, RDW Std Deviation 47.8 H, RDW Coeff of Michael 13.3, Plt Count 215, MPV 11.0, Immature Gran % (Auto) 0.300, Neut % (Auto) 74.7 H, Lymph % (Auto) 15.7 L, [place] % (Auto) 7.5, Eos % (Auto) 1.5, Baso % (Auto) 0.3, Absolute Neuts (auto) 7.3, Absolute Lymphs (auto) 1.53, Nucleated RBC % 0 10/11/22 20:30: Sodium 141, Potassium 3.7, Chloride 107, Carbon Dioxide 27.0, Anion Gap 7, BUN 17, Creatinine 0.92, Estim Creat Clear Calc 61.91, Est GFR (MDRD) Af Amer 102, Est GFR (MDRD) Non-Af 84, BUN/Creatinine Ratio 18.5, Glucose 117 H, Calcium 8.7, Troponin I High Sens 352 H* 10/11/22 20:30: PT 12.9, INR 1.0, APTT 29.3 10/11/22 21:35: Activated Clotting Time 197 H 10/11/22 22:40: Activated Clotting Time 233 H 10/12/22 03:40: WBC 10.0, RBC 4.35 L, Hgb 14.0, Hct 41.6, MCV 95.6 H, MCH 32.2 H , MCHC 33.7, RDW Std Deviation 47.2 H, RDW Coeff of Michael 13.2, Plt Count 192, MPV 10.8, Immature Gran % (Auto) 0.300, Neut % (Auto) 82.3 H, Lymph % (Auto) 11.1 L, [place] % (Auto) 5.9, Eos % (Auto) 0.2, Baso % (Auto) 0.2, Absolute Neuts (auto) 8.2 H, Absolute Lymphs (auto) 1.11, Nucleated RBC % 0 10/12/22 03:40: Sodium 141, Potassium 3.6, Chloride 108 H, Carbon Dioxide 28.0, Anion Gap 5, BUN 15, Creatinine 0.69 L, Estim Creat Clear Calc 56.95, Est GFR (MDRD) Af Amer 142, Est GFR (MDRD) Non-Af 117, BUN/Creatinine Ratio 21.9 H, Glucose 110 H, Calcium 8.6, Total Bilirubin 1.10 H, AST 31, ALT 26, Alkaline Phosphatase 53, Total Protein 5.9 L, Albumin 3.3, Globulin 2.6, Albumin/Globulin Ratio 1.3, Triglycerides 97, Cholesterol 185, LDL Cholesterol 108, VLDL Cholesterol 19, HDL Cholesterol 58 10/12/22 03:40: Troponin I High Sens 4822 H* Radiography Diagnostic Testing: Radiology Impression Chest X-Ray 10/11/22 20:35 IMPRESSION: No radiographic evidence of acute cardiopulmonary disease. Electronically Signed: Bertha Mahoney MD at 21:20 EST Reading Location ID and State: [id number] / Tel , Service support , Rhythm Strip Rhythm Strip: Sinus Rhythm Physical Exam Const alert, oriented x3 and no apparent distress HEENT head/scalp atraumatic, moist oral mucous membranes and oropharynx normal Head and Scalp: normocephalic Mouth: oral and palatal mucosa normal Eyes PERRL and EOMs intact bilaterally Neck no lymphadenopathy and supple Resp normal respiratory effort, no retractions, no use of accessory muscles and clear to auscultation bilaterally Cardio regular rate, regular rhythm, S1 normal heart sound, S2 normal heart sound and no murmurs GI normal to inspection, nondistended, normoactive bowel sounds, soft to palpation and non-tender Extremity normal to inspection, full ROM and no clubbing, cyanosis or edema Neuro oriented x3, CN's II-XII intact bilaterally, moves all extremities and no focal motor deficits Sensorium / Orientation: awake and alert Motor Exam: strength 5/5 throughout Psych affect normal Assessment & Plan Assessment/Plan (1) ST elevation HI (STEMI): PLAN: Plan #STEMI s/p PCI * had cardiac cath which showed ulcerated plaque, and had balloon angioplasty and stent placement in mid LAD * on aspirin, plavix and high intensity statin. Also on carvedilol * cardiology on board * #Hypertension: on losartan and carvedilol #HYperlipidemia: on statin DVT prophylaxis: lovenox Charges/Coding Visit Charges Inpatient E&M: 52942 Subs Hosp L2
[2022-10-12] MEDS: Chlorthalidone 50 MG Tablet 25 MG PO (10:46)
[2022-10-12] MEDS: Clopidogrel Bisulfate 75 MG Tablet PO (10:46)
[2022-10-12] MEDS: Tamsulosin HCl 0.4 MG Capsule PO (10:47)
--- NOTE | 2022-10-12 12:35 | CASEMGMT ---
RN CM Face to Face with patient for initial transition planning/care coordination assessment. RN CM introduced self and role at [facility]. Patient lying in bed, alert and oriented, son at bedside. Patient willing to participate in assessment and is able to answer all questions appropriately. Care providers, pharmacy, and demographics verified. Patient wishes to discharge home, denies need for home health at this time. Patient states he has no further needs or concerns at this time. CM to follow for discharge planning needs that may arise. PCP: Nancie Specialists: Vangie, genetics nurse; Reema, urologist Sidra Preferred Pharmacy: [facility] Insurance: [employer] Prescription Benefit: yes Living Will/HPOA: yes, son Lane Miranda LNOK: son Living Arrangements: Patient lives alone in a 1 story condo with 1 step to enter. Patient is independent at home. Transportation: self, son DME/HHC: Patient has shower chair, raised toilet, grab bars, walker at home. Patient denies previous HHC or SNF. Disposition Plan: Patient to discharge home with family support and follow-up plans in place. Ricarda JAIN, RN, CM
--- NOTE | 2022-10-12 15:02 | CL.I_ITS ---
Patient Name: JHOANA SHABAZZ Study Date: 10/11/2022 Performing: Klever Aguilar MD Ht: 69 inches 175.26 cm : 1940 Wt: 195 lbs 88.45 kg Age: 82 Gender: male BSA: 2.04 PROCEDURE(S) PERFORMED DC01-(82442)LHC/COR/LV IC12-(48702/C9600)FABRICIO W/WO PTCA, SINGLE CORONARY ARTERY CLINICAL PROFILE AND CO-MORBIDITIES Indications: ACS > 24 hrs Heart Failure: None Angina Classification Anginal Classification w/in 2 Weeks: CCS IV CAD Presentations: Non-STEMI. Symptom onset Date/Time: Time Not Available CONCLUSIONS Distal LMCA 50-60% Stent to Prox LAD patent, Mid LAD 95% 50% Prox and Mid RCA LVEF 35-40% Successful PTCA/FABRICIO Mid LAD using rsolute Srinivasan 2.5x18 mm, post-dilated using 2.75 mm balloon Unable to perform procedure through Rt. Radial secondary to tortuous inominate artery, completed through right femoral approach with placement of a long 65 cm sheath RECOMMENDATIONS ASA Indefinitley Plavix for at least 12 months DESCRIPTION OF PROCEDURE The patient arrived to the procedure lab. The risks and benefits of the procedure as well as a full description of our services here and lack of surgical backup were fully explained to the patient and/or their significant other prior to the catheterization. The Timeout was completed, verifying the correct patient and procedure. The patient's procedural site was prepped and draped in the usual fashion. Local anesthetic was given subcutaneously to right radial region with Lidocaine 2%. Local anesthetic was given subcutaneously to right groin region with Marcaine 1%. Using a modified Seldinger technique, arterial access was obtained via the right radial artery, a 6Fr sheath was inserted., arterial access was obtained via the right femoral artery, a 6Fr sheath was inserted.. Left Coronary Artery selective angiography was performed in multiple views using a 5 Fr. 4.0 [place] catheter. Left Coronary Artery selective angiography was performed in multiple views using a 6 Fr. JL4 catheter. Right Coronary Artery selective angiography was then performed in multiple views using a 6 Fr. 3DRC (Tiago) catheter. Left Ventriculography was performed in ROMERO projection using a 5 Fr. Pigtail catheter. LV to AO pullback pressures were then recorded XB 3.5 Guide catheter was inserted, unable to engage. XB 4 Guide catheter was inserted and engaged into the LCA. Balloon catheter was advanced across lesion in the LAD, mid. XB 4 Guide catheter was inserted and engaged into the LCA. Runthrough Guide wire was advanced to the LAD. 2.5x12 Emerge Balloon catheter was inserted. Balloon catheter was advanced across lesion in the LAD, mid. PTCA balloon inflated at 6 atms for 8 secs. Angiogram performed post balloon dilatation. 2.5x18 Resolute [place] Drug Eluting stent was inserted. Drug Eluting stent was advanced across the lesion in the LAD, mid. Angiogram performed post stent deployment. 2.75x12 NC Emerge Balloon catheter was inserted. Balloon catheter was inserted post stent. Angiogram performed post balloon dilatation. Contrast was injected through the sheath and the Right Iliac and Femoral artery were assessed for possible closure device. The arterial sheath was pulled and a Perclose closure device was deployed for hemostasis, Rt groin. The arterial sheath was pulled and a TR Band was applied for hemostasis. 10cc of air CORONARY ANGIOGRAPHY DOMINANCE: Right Dominant LEFT HEART ASSESSMENT Left Ventricular Ejection Fraction: by LV Gram 35-40% LVEDP: 27 mmHg LEFT MAIN: Tubular 50% Distal lesion in Left Main LEFT ANTERIOR DESCENDING ARTERY: LAD: Tubular 50% Ostial lesion in LAD Tubular 95% Mid lesion in LAD Tubular 60% Mid lesion in LAD RIGHT CORONARY ARTERY: RCA: Tubular 50% Proximal lesion in RCA Tubular 50% Mid lesion in RCA INTERVENTION INFORMATION LESION SITE: LAD (Mid) Lesion Complexity: High/C, lesion length: 15 mm, culprit lesion: Yes, In-stent restenosis: No, thrombus present: Yes Pre Stenosis: 95 % Pre intervention HAYLEY flow: 3 PROCEDURE: Drug Eluting Stent with pre and post dilatation Post Stenosis: 0 % Post intervention HAYLEY flow: 3 Lesion Devices: Terumo .014 180cm Runthrough Extra Floppy straight Cordis 6 Fr XB4.0 100cm Guide Catheter [place] Sci EMERGE MR 2.50x12 BALLOON Medtronic Resolute [place] RX FABRICIO 2.5x18 [place] Sci NC EMERGE MR 2.75x12 BALLOON COMPLICATIONS No Complications PROCEDURE MEDICATIONS Oxygen: 2 L/min via nasal cannula Heparin 4000 unit(s) IV 10/11/2022 21:57:58 Nitro 200 mcg IC 10/11/2022 22:14:45 Nitro 200 mcg IC 10/11/2022 22:14:45 Verapamil 2.5mg, Ntg 200mcgs, given IA 10/11/2022 21:34:14 SUMMARY OF HEMODYNAMIC DATA Time AIR REST ECG 21:31:27 AO 148/70 (100) SA 21:38:59 LV 186/14, 29 22:30:34 LV 174/18, 27 22:30:57 LVp 169/13, 27 22:31:59 LVp 169/13, 27 22:31:59 AOp 161/78 (112) 22:32:07 AOp 161/78 (112) 22:32:07 Signed By Klever Aguilar MD On 10/12/2022 15:02:36 Signed By Klever Aguilar MD On 10/11/2022 23:25:40 Klever Aguilar MD
[2022-10-13] VITALS (15 sets, daily range): BP systolic 107–147; BP diastolic 49–74; PULSE 52–68; RESP 12–21; TEMP 36.7–36.9; O2SAT 94–98
[2022-10-13 05:38] LABS: Absolute Lymphocyte Count 1.52 X10^3/uL (0.83-4.51); Absolute Neutrophil Count 5.5 X10^3/uL (2.0-7.7); Basophil# 0.04 X10^3/uL; Basophil% 0.5 % (0-1); Eosinophil# 0.25 X10^3/uL; Eosinophils% 3.1 % (0-5); Hematocrit 41.7 % (40-54); Hemoglobin 13.8 g/dL (13.0-16.5); Lymphocyte # 1.52 X10^3/ul (0.83-4.51); Lymphocyte % 18.6 % (19-41); Mean Corp Hgb Conc 33.1 g/dL (32-36); Mean Corpuscular Hgb 31.9 pg (27.0-32.0); Mean Corpuscular Volume 96.3 fL (80-94); Mean Platelet Vol. 10.8 fl (6.2-12.0); Monocyte# 0.87 X10^3/uL; Monocyte% 10.6 % (0-10); NRBC Flagged by Analyzer 0 % (0-5); Neutrophil # 5.48 X10^3/uL (2.7-7.7); Neutrophil % 66.8 % (47-70); Platelet Count 190 K/mm3 (150-450); RBC Distribution Width CV 13.5 % (11.6-14.6); RBC Distribution Width SD 47.8 fl (35.1-43.9); Red Blood Count 4.33 M/mm3 (4.6-6.2); White Blood Count 8.2 K/mm3 (4.4-11.0)
[2022-10-13 05:51] LABS: Anion Gap 3 (5-15); BUN 19 mg/dL (7-18); BUN/Creat Ratio 22.8 RATIO (10-20); Calcium,Total 8.9 mg/dL (8.5-10.1); Chloride 110 mmol/L (98-107); Creatinine, Serum 0.83 mg/dL (0.70-1.30); EST Glomerular Filtration Rate 94 mL/min (>60); Est Glom Filt Rate - Afr Amer 114 mL/min (>60); Estimated Creatinine Clearance 68.62 ml/min; Glucose 95 mg/dL (74-106); Potassium 4.2 mmol/L (3.5-5.1); Sodium Level 142 mmol/L (136-145)
[2022-10-13] MEDS: Losartan Potassium 50 MG Tablet PO (08:37)
[2022-10-13] MEDS: Carvedilol 3.125 MG TABLET PO (08:37)
[2022-10-13] MEDS: Clopidogrel Bisulfate 75 MG Tablet PO (08:37)
[2022-10-13] MEDS: Tamsulosin HCl 0.4 MG Capsule PO (08:37)
[2022-10-13] MEDS: Aspirin E.C. 81 MG Tablet PO (08:37)
--- NOTE | 2022-10-13 09:43 | PCM.PN.CARD ---
Subjective Subjective Ambulating. Denying any complaints. Objective Data Vital Signs: Vital Signs Temp Pulse Resp BP Pulse Ox O2 Del Method 98.1 F 68 18 115/63 96 Room Air 10/13/22 08:00 10/13/22 09:00 10/13/22 09:00 10/13/22 09:00 10/13/22 09:00 10/13/22 09:00 Oxygen Delivery Method Room Air Weight: 198 lb 10.184 oz Body Mass Index (BMI) 28.5 Intake & Output: Intake and Output for Last 24 Hours 10/11/22 10/12/22 10/13/22 23:59 23:59 23:59 Intake Total 1000 / 1120 320 / 320 Output Total 225 / 350 1275 / 1725 750 / 750 Balance -225 / -350 -275 / -605 -430 / -430 Lab / Micro Data Result Diagrams: 10/13/22 05:30 10/13/22 05:30 Labs: Laboratory Results - last 24 hr 10/13/22 05:30: WBC 8.2, RBC 4.33 L, Hgb 13.8, Hct 41.7, MCV 96.3 H, MCH 31.9, MCHC 33.1, RDW Std Deviation 47.8 H, RDW Coeff of Michael 13.5, Plt Count 190, MPV 10.8, Immature Gran % (Auto) 0.400, Neut % (Auto) 66.8, Lymph % (Auto) 18.6 L, Mchenry % (Auto) 10.6 H, Eos % (Auto) 3.1, Baso % (Auto) 0.5, Absolute Neuts (auto) 5.5, Absolute Lymphs (auto) 1.52, Nucleated RBC % 0 10/13/22 05:30: Sodium 142, Potassium 4.2, Chloride 110 H, Carbon Dioxide 29.0, Anion Gap 3 L, BUN 19 H, Creatinine 0.83, Estim Creat Clear Calc 68.62, Est GFR (MDRD) Af Amer 114, Est GFR (MDRD) Non-Af 94, BUN/Creatinine Ratio 22.8 H, Glucose 95, Calcium 8.9 Rhythm Strip Rhythm Strip: Sinus Rhythm Cardiology Labs/Tests 10/13/22 05:30: WBC 8.2, RBC 4.33 L, Hgb 13.8, Hct 41.7, MCV 96.3 H, MCH 31.9, MCHC 33.1, Plt Count 190, MPV 10.8, Immature Gran % (Auto) 0.400, Neut % (Auto) 66.8, Lymph % (Auto) 18.6 L, Mchenry % (Auto) 10.6 H, Eos % (Auto) 3.1, Baso % (Auto) 0.5, Absolute Neuts (auto) 5.5, Nucleated RBC % 0 10/13/22 05:30: Sodium 142, Potassium 4.2, Chloride 110 H, Carbon Dioxide 29.0, Anion Gap 3 L, BUN 19 H, Creatinine 0.83, Est GFR (MDRD) Af Amer 114, Est GFR (MDRD) Non-Af 94, BUN/Creatinine Ratio 22.8 H, Glucose 95, Calcium 8.9 Rhythm: EKG: ECHO: Stress Test: Cardiac Cath: PCI: CT Surgery: Holter monitor: EPS: PPM: CXR: Chest CT Scan: Radiography Diagnostic Testing: Radiology Impression Echocardiogram 10/11/22 23:17 Interpretation Summary The left ventricular ejection fraction is 45 %. Diastolic function is indeterminate. The left atrium is severely enlarged. Mild (1+) aortic valve insufficiency. Mildly dilated aortic root. Ordering Physician: Klever Aguilar Referring Physician: Klever Aguilar Performed By: Gris Dominguez RCS Physical Exam Narrative Comfortable. Heart sounds 1 and 2 are normal. Chest clear to auscultation bilaterally. Abdomen soft. Alert oriented x3. Right groin is stable. No hematoma. No bruit. No bleeding. Assessment & Plan Assessment/Plan (1) NSTEMI (non-ST elevated myocardial infarction): PLAN: Status post drug-eluting stent placement to the mid LAD. Stable. Asymptomatic. Continue aspirin. Continue Plavix. (2) Ischemic cardiomyopathy: PLAN: Chronic systolic congestive heart failure. Beta-blockers, angiotensin receptor blockers. Diuretics. (3) Essential hypertension: PLAN: Blood pressure controlled. Continue medications. (4) Hyperlipidemia: QUALIFIERS: Hyperlipidemia type: unspecified Qualified Code(s): E78.5 - Hyperlipidemia, unspecified PLAN: Atorvastatin. PLAN: Plan Stable for discharge home. Follow-up in the office as outpatient.
--- NOTE | 2022-10-13 10:00 | EKG12_ITS ---
Test Reason : AM EKG Blood Pressure : / mmHG Vent. Rate : 056 BPM Atrial Rate : 056 BPM P-R Int : 216 ms QRS Dur : 126 ms QT Int : 532 ms P-R-T Axes : 017 -63 177 degrees QTc Int : 513 ms Sinus bradycardia with 1st degree A-V block Left axis deviation Left ventricular hypertrophy with QRS widening Marked T wave abnormality, consider anterolateral ischemia Abnormal ECG When compared with ECG of 12-OCT-2022 05:01, Premature supraventricular complexes are no longer Present Confirmed by GEORGES REED, GAYATHRI ([id number]), editor department PETR DANIELLE ([id number]) on 10/16/2022 12:51:14 PM Referred By: Klever Aguilar Confirmed By:GAYATHRI SU MD
--- NOTE | 2022-10-13 10:30 | DS.PCM_ITS ---
Providers Date of Admission: 10/11/22 Date of Discharge: 10/13/22 Primary Care Physician: Dr. Jacob Canada, DO Consultations 10/11/22 23:17 Consult: Cardiology Routine Consulting Provider: Klever Aguilar Reason for Consult: STEMI EMERGENT Consult: Yes MD Notified: Yes Date Notified: 10/11/22 Time Notified: 20:38 Method of Notification: ED Physician Initiated Reason For Visit: STEMI Diagnosis Discharge Diagnosis (1) NSTEMI (non-ST elevated myocardial infarction): Status: Acute Code(s): I21.4 - Non-ST elevation (NSTEMI) myocardial infarction (2) Ischemic cardiomyopathy: Status: Chronic Code(s): I25.5 - Ischemic cardiomyopathy (3) Essential hypertension: Status: Chronic Code(s): I10 - Essential (primary) hypertension (4) Hyperlipidemia: Status: Chronic Code(s): E78.5 - Hyperlipidemia, unspecified Qualifiers: Hyperlipidemia type: unspecified Qualified Code(s): E78.5 - Hyperlipidemia, unspecified Plan #STEMI s/p PCI * had cardiac cath which showed ulcerated plaque, and had balloon angioplasty and stent placement in mid LAD * on aspirin, plavix and high intensity statin. Also on carvedilol * cardiology on board * #Hypertension: on losartan and carvedilol #HYperlipidemia: on statin DVT prophylaxis: lovenox Medications at Discharge Home Medications tamsulosin 0.4 mg capsule 1 tablet PO DAILY PROSTATE 05/06/17 aspirin 81 mg tablet,delayed release 81 mg PO BREAKFAST #30 tabs 10/13/22 atorvastatin 40 mg tablet 40 mg PO QHS #30 tabs 10/13/22 carvedilol 3.125 mg tablet 3.125 mg PO BID #60 tabs 10/13/22 chlorthalidone 50 mg tablet 25 mg PO DAILY #30 tabs 10/13/22 clopidogrel 75 mg tablet 75 mg PO DAILY #30 tabs 10/13/22 losartan 50 mg tablet 50 mg PO DAILY #30 tabs 10/13/22 Hospital Course Operations None Procedures Cardiac catheterization Summary of Care Provided Minutes Spent on Discharge: 45 Hospital Course: Patient is an 82-year-old male with a past medical history as outlined was admitted through the ED with a complaint of throat pain which started the day before presentation. He had called EMS to his home the day before presentation where he had had throat pain and an EKG was done and he was told that he the source of his throat pain was likely not cardiac. Subsequently he kept on having the pain and it radiated to both arms. He also had vomiting. Due to intensity of pain he came into the ED where he was found to have markedly elevated blood pressure with systolic in the 200s. EKG showed ST elevation in leads 136 initial troponin was 352. He was admitted and managed for ST elevation [place] and started on aspirin and Brilinta as well as heparin bolus and heparin drip. Cardiology was consulted and he was taken emergently to the [facility]. He was also placed on high intensity statin. He had cardiac cath with clay carreon PCI and stent placement in the mid LAD. He was placed on aspirin and Plavix as well as high intensity statin and carvedilol as well as losartan. 2D echo done showed EF of 45% with normal left ventricular size and mild concentric left ventricular hypertrophy with indeterminate diastolic function and segmental hypokinesis. He remained stable and was discharged home on 10/13/2022. HE is to follow up with his PCP and burnisher and bumper within 1-2 weeks. Patient seen and examined prior to discharge. He felt well and had no active complaints. Review of systems otherwise negative. Results reviewed. Home medication reviewed and reconciled. Physical Exam Const alert, oriented x3 and no apparent distress General Appearance: cooperative, comfortable and well kempt Orientation / Consciousness: awake Exam Limitations: no limitations HEENT normocephalic, head/scalp atraumatic, hearing grossly normal bilaterally, moist oral mucous membranes and oropharynx normal Mouth: oral and palatal mucosa normal Eyes PERRL and EOMs intact bilaterally Neck no lymphadenopathy and supple Resp normal respiratory effort, no retractions, no use of accessory muscles and clear to auscultation bilaterally Cardio regular rate, regular rhythm, S1 normal heart sound, S2 normal heart sound and no murmurs GI normal to inspection, nondistended, normoactive bowel sounds, soft to palpation and non-tender Extremity normal to inspection, full ROM and no clubbing, cyanosis or edema Skin no rashes or lesions noted Neuro oriented x3, CN's II-XII intact bilaterally, moves all extremities and no focal motor deficits Sensorium / Orientation: awake and alert Motor Exam: strength 5/5 throughout Psych affect normal Weight / BMI Weight Weight: 198 lb 10.184 oz Body Mass Index (BMI) 28.5 ABG / Lab / Microbiology Data Result Diagrams: 10/13/22 05:30 10/13/22 05:30 Laboratory: Laboratory Results - last 24 hr 10/13/22 05:30: WBC 8.2, RBC 4.33 L, Hgb 13.8, Hct 41.7, MCV 96.3 H, MCH 31.9, MCHC 33.1, RDW Std Deviation 47.8 H, RDW Coeff of Michael 13.5, Plt Count 190, MPV 10.8, Immature Gran % (Auto) 0.400, Neut % (Auto) 66.8, Lymph % (Auto) 18.6 L, Mathews % (Auto) 10.6 H, Eos % (Auto) 3.1, Baso % (Auto) 0.5, Absolute Neuts (auto) 5.5, Absolute Lymphs (auto) 1.52, Nucleated RBC % 0 10/13/22 05:30: Sodium 142, Potassium 4.2, Chloride 110 H, Carbon Dioxide 29.0, Anion Gap 3 L, BUN 19 H, Creatinine 0.83, Estim Creat Clear Calc 68.62, Est GFR (MDRD) Af Amer 114, Est GFR (MDRD) Non-Af 94, BUN/Creatinine Ratio 22.8 H, Glucose 95, Calcium 8.9 Radiography Diagnostic Testing: Radiology Impression Echocardiogram 10/11/22 23:17 Interpretation Summary The left ventricular ejection fraction is 45 %. Diastolic function is indeterminate. The left atrium is severely enlarged. Mild (1+) aortic valve insufficiency. Mildly dilated aortic root. Ordering Physician: Klveer Aguilar Referring Physician: Klever Aguilar Performed By: Gris Dominguez RCS D/C Instructions Discharge Diet: Low fat / Low cholesterol Discharge Activity: Return to Normal Activity Weight Bearing Status: Weight bearing as tolerated Call your doctor if you observe: Fever of 101 or Higher, Shortness of breath, Dizziness, Swelling in the ankles, Chest pain and Increased palpitations (irregular heartbeat) Meaningful Use Info Meaningful Use Diagnoses (Choose all that apply): AMI AMI/Post PCI/Angioplasty Aspirin given w/in 24hrs of arrival?: Yes ASA at discharge?: Yes Antiplatelet Therapy at Discharge:: Yes Statins at discharge?: Yes Thiago/ARB at discharge?: Yes Beta Tigre at discharge?: Yes Done w/ Acute [place] measure.: Yes Documented LVEF (%): 45 Discharge Plan Admission Admit Date/Time: 10/11/22 20:34 Primary Reason for Your Visit: nstemi Attending Provider: Jalyn Anthony Primary Care Provider: Jacob Canada Consulting Providers: Klever Aguilar ; Ruel Bello Instructions Patient Instructions: First Aid: Heart Attacks, Heart Attack Dc Discharge Orders/Prescriptions Prescriptions: New losartan 50 mg Tablet 50 mg PO DAILY Qty: 30 1RF atorvastatin 40 mg Tablet 40 mg PO QHS Qty: 30 1RF clopidogrel 75 mg Tablet 75 mg PO DAILY Qty: 30 1RF chlorthalidone 50 mg Tablet 25 mg PO DAILY Qty: 30 1RF aspirin 81 mg Tablet,Delayed Release (Dr/Ec) 81 mg PO BREAKFAST Qty: 30 1RF carvedilol 3.125 mg Tablet 3.125 mg PO BID Qty: 60 1RF Continued tamsulosin 0.4 MG capsule 1 tablet PO DAILY Label Comments: URINE FLOW Discontinued lisinopril 40 mg tablet 40 mg PO DAILY Qty: 90 3RF Referrals / Follow Up: Klever Aguilar MD [Med Staff - Active Staff] - Within 2 Weeks Jacob Canada DO [Primary Care Provider] - Within 2 Weeks Disposition Disposition (needs filled in before D/C Order can be placed): Home, Self Care Charges/Coding Visit Charges Inpatient E&M: 89436 Disch Hosp
== END 2022-10-13 12:05 | disposition home or self-care (01) | DRG 247 ==
LOC: ED 21:05 → ICU 21:24
PROVIDERS: Admitting Provider Hospitalist; Emergency Provider Emergency Medicine; PCP Student in an Organized Health Care Education/Training Program; Referring Provider Internal Medicine Cardiovascular Disease; Visit Provider Student in an Organized Health Care Education/Training Program
DX: I21.4 Non-ST elevation (NSTEMI) myocardial infarction (principal); I45.89 Other specified conduction disorders; I50.22 Chronic systolic (congestive) heart failure; I11.0 Hypertensive heart disease with heart failure; I25.5 Ischemic cardiomyopathy; I25.10 Atherosclerotic heart disease of native coronary artery without angina pectoris; E78.5 Hyperlipidemia, unspecified; I25.2 Old myocardial infarction; N40.0 Benign prostatic hyperplasia without lower urinary tract symptoms; Z79.02 Long term (current) use of antithrombotics/antiplatelets; Z79.82 Long term (current) use of aspirin; Z79.899 Other long term (current) drug therapy; Z86.16 Personal history of COVID-19; Z95.5 Presence of coronary angioplasty implant and graft
CPT/HCPCS: 71045; 80048; 80053; 80061; 84484; 85025; 85347; 85610; 85730; 92928; 93005; 93306; 93458; 99284; J7030; J7040; Q9967; A4216; C1725; C1760; C1769; C1874; C1887; C1894; C9600

== ENCOUNTER → 2023-01-31 | Outpatient (CLI) | payer MEDICARE, OTHER, SELFPAY ==
--- NOTE | 2023-01-31 08:58 | ECHOD_ITS ---
Reason For Study: CAD/ASHD Procedure This was a 2D Doppler, Color Flow transthoracic echocardiogram. Exam performed in department. Left Ventricle Mild concentric left ventricular hypertrophy. Normal LV size. The left ventricular ejection fraction is 60 %. Normal diastology for age. Right Ventricle Normal right ventricle. Atria The left atrium is severely enlarged. Normal right atrium. Mitral Valve Trivial mitral valve insufficiency. Tricuspid Valve Mild tricuspid valve insufficiency. Normal pulmonary artery pressure. Aortic Valve Moderate (2+) aortic valve insufficiency. Pulmonic Valve The pulmonic valve is not well visualized. Great Vessels Mildly dilated aortic root. Pericardium/Pleural No pericardial effusion. MMode/2D Measurements & Calculations LVIDd: 6.1 cm IVSd: 1.2 cm Ao root diam: 3.6 cm LVIDs: 4.7 cm LVPWd: 0.97 cm LA dimension: 4.8 cm RVDd: 3.1 cm FS: 22.8 % LAV(MOD-bp): 55.7 ml LVAd ap4: 32.6 cm2 SV(MOD-sp4): 56.2 ml LAV(MOD-bp) Indexed: 26.7 ml/m2 LVLd ap4: 8.2 cm LAV(MOD-sp2): 60.6 ml EDV(MOD-sp4): 107.4 ml LAV(MOD-sp4): 47.3 ml EDV(sp4-el): 110.5 ml LVAs ap4: 19.4 cm2 LVLs ap4: 6.5 cm ESV(MOD-sp4): 51.2 ml ESV(sp4-el): 48.7 ml EF(MOD-sp4): 52.3 % EF(sp4-el): 56.0 % SV(sp4-el): 61.8 ml LA A4 area: 18.6 cm2 RA A4 area: 16.7 cm2 Time Measurements MV dec time: 0.36 sec Doppler Measurements & Calculations MV E max robin: 59.1 cm/sec Lat Peak E' Robin: 9.4 cm/sec Med Peak E' Robin: 5.0 cm/sec MV A max robin: 95.5 cm/sec E/E' lat: 6.3 E/E' med: 11.9 MV E/A: 0.62 MV V2 max: 91.3 cm/sec Ao V2 max: 151.1 cm/sec MV max P.3 mmHg MV dec slope: 164.7 cm/sec2 Ao max P.1 mmHg MV V2 mean: 44.6 cm/sec MV mean P.95 mmHg MV V2 VTI: 39.4 cm AI max robin: 330.3 cm/sec LV V1 max: 111.8 cm/sec PA V2 max: 82.3 cm/sec AI max P.6 mmHg LV V1 max P.0 mmHg PA V2 mean: 54.8 cm/sec AI dec slope: 174.5 cm/sec2 AI P1/2t: 554.5 msec TR max robin: 205.7 cm/sec TR max P.9 mmHg ECHO/Echo Complete Interpretation Summary Mild concentric left ventricular hypertrophy. The left ventricular ejection fraction is 60 %. The left atrium is severely enlarged. Mild tricuspid valve insufficiency. Moderate (2+) aortic valve insufficiency. Ordering Physician: Cyndi Price Referring Physician: Jacob Canada Performed By: Rogelio Gardner RCS
== END | disposition home or self-care (01) ==
LOC: CVS 08:56
PROVIDERS: PCP Student in an Organized Health Care Education/Training Program; Referring Provider Physician Assistant Medical; Visit Provider Physician Assistant Medical
DX: I25.10 Atherosclerotic heart disease of native coronary artery without angina pectoris (principal)
CPT/HCPCS: 93306

== ENCOUNTER → 2023-03-27 | Outpatient (CLI) | payer MEDICARE, OTHER, SELFPAY ==
[2023-03-27 08:32] LABS: AST(SGOT) 25 U/L (15-37); Alanine Aminotransfer ALT/SGPT 30 U/L (16-61); Albumin, Serum 3.8 g/dL (3.2-5.0); Alkaline Phosphatase 58 U/L (45-117); Bilirubin, Direct 0.24 mg/dL (0.00-0.30); Cholesterol 204 mg/dL (200); Globulin 2.9 g/dL (2.2-4.2); High Density Lipoprotein 62 mg/dL; Protein, Total 6.7 g/dL (6.4-8.2); Triglycerides 124 mg/dL; Very Low Density Lipoprotein 25 mg/dL (5-40)
== END | disposition home or self-care (01) ==
PROVIDERS: Nurse Practitioner Family; PCP Student in an Organized Health Care Education/Training Program; Referring Provider Physician Assistant Medical; Visit Provider Physician Assistant Medical
DX: E78.5 Hyperlipidemia, unspecified (principal); I25.10 Atherosclerotic heart disease of native coronary artery without angina pectoris
CPT/HCPCS: 36415; 80061; 80076

== ENCOUNTER → 2023-09-11 | Outpatient (CLI) | payer MEDICARE, OTHER, SELFPAY ==
[2023-09-11 12:33] LABS: AST(SGOT) 34 U/L (15-37); Alanine Aminotransfer ALT/SGPT 28 U/L (16-61); Albumin, Serum 3.6 g/dL (3.2-5.0); Alkaline Phosphatase 52 U/L (45-117); Bilirubin, Direct 0.18 mg/dL (0.00-0.30); Cholesterol 205 mg/dL (200); Globulin 3.3 g/dL (2.2-4.2); High Density Lipoprotein 66 mg/dL; Protein, Total 6.9 g/dL (6.4-8.2); Triglycerides 109 mg/dL; Very Low Density Lipoprotein 22 mg/dL (5-40)
== END | disposition home or self-care (01) ==
LOC: LAB 10:02
PROVIDERS: PCP Student in an Organized Health Care Education/Training Program; Referring Provider Nurse Practitioner Family; Visit Provider Nurse Practitioner Family
DX: E78.00 Pure hypercholesterolemia, unspecified (principal)
CPT/HCPCS: 36415; 80061; 80076

== ENCOUNTER → 2024-03-23 | Outpatient (CLI) | payer MEDICARE, OTHER, SELFPAY ==
[2024-03-23 08:40] LABS: AST(SGOT) 25 U/L (15-37); Alanine Aminotransfer ALT/SGPT 19 U/L (16-61); Albumin, Serum 3.6 g/dL (3.2-5.0); Alkaline Phosphatase 49 U/L (45-117); Anion Gap 2 (5-15); BUN 30 mg/dL (7-18); BUN/Creat Ratio 30.4 RATIO (10-20); Calcium,Total 9.3 mg/dL (8.5-10.1); Chloride 106 mmol/L (98-107); Cholesterol 199 mg/dL (200); Creatinine, Serum 0.99 mg/dL (0.70-1.30); EST Glomerular Filtration Rate 77 mL/min (>60); Est Glom Filt Rate - Afr Amer 93 mL/min (>60); Glucose 85 mg/dL (74-106); High Density Lipoprotein 65 mg/dL; Potassium 4.1 mmol/L (3.5-5.1); Protein, Total 6.6 g/dL (6.4-8.2); Sodium Level 140 mmol/L (136-145); Triglycerides 74 mg/dL; Very Low Density Lipoprotein 15 mg/dL (5-40)
== END | disposition home or self-care (01) ==
LOC: LAB 06:41
PROVIDERS: PCP Student in an Organized Health Care Education/Training Program; Referring Provider Physician Assistant Medical; Visit Provider Physician Assistant Medical
DX: Z51.81 Encounter for therapeutic drug level monitoring (principal); Z79.899 Other long term (current) drug therapy; I25.5 Ischemic cardiomyopathy; E78.5 Hyperlipidemia, unspecified; Z95.5 Presence of coronary angioplasty implant and graft; I25.10 Atherosclerotic heart disease of native coronary artery without angina pectoris
CPT/HCPCS: 36415; 80048; 80061; 80076

== ENCOUNTER → 2024-03-25 | Outpatient (CLI) | payer MEDICARE, OTHER, SELFPAY ==
[2024-03-25 15:16] LABS: Absolute Lymphocyte Count 1.95 X10^3/uL (0.83-4.51); Absolute Neutrophil Count 6.2 X10^3/uL (2.0-7.7); Basophil# 0.04 X10^3/uL; Basophil% 0.4 % (0-1); Eosinophil# 0.24 X10^3/uL; Eosinophils% 2.7 % (0-5); Hematocrit 42.2 % (40-54); Hemoglobin 13.9 g/dL (13.0-16.5); Lymphocyte # 1.95 X10^3/ul (0.83-4.51); Lymphocyte % 21.5 % (19-41); Mean Corp Hgb Conc 32.9 g/dL (32-36); Mean Corpuscular Hgb 32.4 pg (27.0-32.0); Mean Corpuscular Volume 98.4 fL (80-94); Mean Platelet Vol. 10.7 fl (6.2-12.0); Monocyte# 0.55 X10^3/uL; Monocyte% 6.1 % (0-10); NRBC Flagged by Analyzer 0 % (0-5); Neutrophil # 6.24 X10^3/uL (2.7-7.7); Platelet Count 217 K/mm3 (150-450); RBC Distribution Width CV 13.4 % (11.6-14.6); RBC Distribution Width SD 48.9 fl (35.1-43.9); Red Blood Count 4.29 M/mm3 (4.6-6.2); White Blood Count 9.1 K/mm3 (4.4-11.0)
== END | disposition home or self-care (01) ==
LOC: LAB 14:40
PROVIDERS: PCP Student in an Organized Health Care Education/Training Program; Referring Provider Physician Assistant Medical; Visit Provider Physician Assistant Medical
DX: I25.10 Atherosclerotic heart disease of native coronary artery without angina pectoris (principal)
CPT/HCPCS: 36415; 85025